=== PATIENT | female | born 1955 | race Caucasian/White ===

== ENCOUNTER 2016-12-08 21:56 | Emergency (ER) | payer MEDICARE, OTHER, MEDICAID ==
--- NOTE | 2016-12-08 23:08 | ER Document Report ---
ED Extremity Problem, Lower - General Chief Complaint: Foot Pain Stated Complaint: FOOT PAIN Notes: Patient is a 61-year-old female that comes emergency department by EMS from [facility] for chief complaint of concerns about the circulation in the right foot. Patient has known history of peripheral vascular disease, she states that they were unable to find a pulse in her foot and became concerned and sent her for evaluation. Patient denies any new pains or injuries to the foot, denies any other symptoms. TRAVEL OUTSIDE OF THE [place] IN LAST 30 DAYS: No - Related Data Allergies/Adverse Reactions: No Known Allergies Allergy (Unverified 02/06/15 14:33) Past Medical History - General Information source: Patient - Social History Smoking Status: Never Smoker Frequency of alcohol use: None Drug Abuse: None Lives with: Family Family History: Reviewed & Not Pertinent - Past Medical History Cardiac Medical History: Reports: Hx Hypercholesterolemia, Hx Hypertension, Hx Peripheral Vascular Disease Neurological Medical History: Reports: Hx Cerebrovascular Accident Psychiatric Medical History: Reports: Hx Depression Past Surgical History: Reports: Hx Hysterectomy, Hx Orthopedic Surgery - Left second toe metatarsal amputation for ischemic gangrenous toe., Hx Vascular Surgery - Left femoropopliteal bypass with tibial angioplasty - Immunizations Immunizations up to date: Yes Hx Diphtheria, Pertussis, Tetanus Vaccination: Yes - unknown Review of Systems - Review of Systems Constitutional: No symptoms reported EENT: No symptoms reported Cardiovascular: No symptoms reported Respiratory: No symptoms reported Gastrointestinal: No symptoms reported Genitourinary: No symptoms reported Female Genitourinary: No symptoms reported Musculoskeletal: See HPI Skin: See HPI Hematologic/Lymphatic: No symptoms reported Neurological/Psychological: No symptoms reported Physical Exam - Vital signs Vitals: Temp Pulse Resp BP Pulse Ox 97.7 F 69 15 108/78 97 12/09/16 02:05 12/09/16 02:05 12/09/16 02:05 12/09/16 02:05 12/09/16 02:05 Interpretation: Normal - General General appearance: Appears well, Alert In distress: None - HEENT Head: Normocephalic, Atraumatic Eyes: Normal Conjunctiva: Normal Extraocular movements intact: Yes Eyelashes: Normal Pupils: PERRL Mucous membranes: Normal Pharynx: Normal Neck: Normal - Respiratory Respiratory status: No respiratory distress Chest status: Nontender Breath sounds: Normal Chest palpation: Normal - Cardiovascular Rhythm: Regular. No: Tachycardia Heart sounds: Normal auscultation, S1 appreciated, S2 appreciated Murmur: No - Abdominal Inspection: Normal Distension: No distension Bowel sounds: Normal Tenderness: Nontender. No: Tender, Guarding Organomegaly: No organomegaly - Back Back: Normal, Nontender - Extremities General upper extremity: Normal inspection, Nontender, Normal color, Normal ROM , Normal temperature General lower extremity: Other - Left lower extremity BKA, right lower extremity with a decubitus ulcer at the base of the fifth digit laterally with no significant erythema, tenderness, or discharge noted. Good capillary refill and sensation, there is a pulse felt over the dorsalis pedis, the foot is not significantly cold to the touch and has a pink coloration. - Neurological Neuro grossly intact: Yes Cognition: Normal Orientation: AAOx4 [place] Coma Scale Eye Opening: Spontaneous Karena Coma Scale Verbal: Oriented [place] Coma Scale Motor: Obeys Commands [place] Coma Scale Total: 15 Speech: Normal Cranial nerves: Normal Cerebellar coordination: Normal Motor strength normal: LUE, RUE, LLE, RLE Additional motor exam normals: Equal dopeman Sensory: Normal - Psychological Associated symptoms: Normal affect, Normal mood - Skin Skin Temperature: Warm Skin Moisture: Dry Skin Color: Normal Course - Re-evaluation Re-evalutation: Good dorsalis pedis, good capillary refill, good coloration to the foot, foot is warm and not cold, foot is nontender, ankle and leg exam are unremarkable. Only abnormality is a decubitus ulcer which is not new, appropriately dressed already, there is no significant tenderness or erythema suggesting cellulitis, patient examination shows no acute abnormalities. - Vital Signs Vital signs: Temp Pulse Resp BP Pulse Ox 97.7 F 69 15 108/78 97 12/09/16 02:05 12/09/16 02:05 12/09/16 02:05 12/09/16 02:05 12/09/16 02:05 Discharge - Discharge Clinical Impression: Peripheral vascular disease Condition: Stable Disposition: HOME, SELF-CARE Additional Instructions: Good capillary refill and dorsalis pedis pulses are noted on examination. Continue dressings on decubitus ulcer. Follow-up with your primary care. Return to the emergency department for any concerning or worsening symptoms including evidence of infection to the ulcer or other concerns including bluish discoloration or coldness to your foot. Referrals: BRIAN TINAJERO MD [Primary Care Provider] - Follow up as needed
[2016-12-09 02:55] VITALS: BP 108/78
== END 2016-12-09 02:10 | disposition home or self-care (01) ==
LOC: ER 21:56
DX: I73.9 Peripheral vascular disease, unspecified (principal); M79.671 Pain in right foot; L89.899 Pressure ulcer of other site, unspecified stage; E78.00 Pure hypercholesterolemia, unspecified; I10 Essential (primary) hypertension; Z89.512 Acquired absence of left leg below knee; Z90.710 Acquired absence of both cervix and uterus; Z86.73 Personal history of transient ischemic attack (TIA), and cerebral infarction without residual deficits
CPT/HCPCS: 99285

== ENCOUNTER 2020-01-21 05:47 | Inpatient (IN) | payer MEDICARE, MEDICAID ==
[2020-01-21] MEDS ORDERED: ACETAMINOPHEN 325 MG TABLET PO ONE (05:56)
[2020-01-21] MEDS ORDERED: PIPERACILLIN/TAZOBACTAM 4.5 GM VIAL IV ONE (05:56)
--- NOTE | 2020-01-21 06:00 | ER Document Report ---
ED Medical Screen (RME) - General Stated Complaint: LOW BLOOD PRESSURE/FEVER Primary Care Provider: ALLIE PEARSON MD [Primary Care Provider] - Follow up as needed Notes: 65-year-old female presents the emergency department via EMS from [facility]. Patient there was found to be feeling generally weak and having chills. [facility] and [facility] found that she was hypotensive, tachycardic and febrile. Patient was diagnosed with a tongue abscess yesterday and started on Augmentin by the [facility]. Patient denies any pain in her tongue, states that she has some pain in her teeth, states she thinks she has a cavity. TRAVEL OUTSIDE OF THE [place] IN LAST 30 DAYS: No - Related Data Allergies/Adverse Reactions: No Known Allergies Allergy (Unverified 02/06/15 14:33) Past Medical History - Past Medical History Cardiac Medical History: Reports: Hx Hypercholesterolemia, Hx Hypertension, Hx Peripheral Vascular Disease Neurological Medical History: Reports: Hx Cerebrovascular Accident Psychiatric Medical History: Reports: Hx Depression Past Surgical History: Reports: Hx Hysterectomy, Hx Orthopedic Surgery - Left second toe metatarsal amputation for ischemic gangrenous toe., Hx Vascular Surgery - Left femoropopliteal bypass with tibial angioplasty - Immunizations Immunizations up to date: Yes Hx Diphtheria, Pertussis, Tetanus Vaccination: Yes - unknown Physical Exam - Notes Notes: GENERAL: Alert, interacts well. No acute distress but marked hypotension. HEAD: Normocephalic, atraumatic EYES: Pupils equal, round and reactive to light, extraocular movements intact. ENT: Oral mucosa moist, tongue deviates slightly to the right, postsurgical changes consistent with her tongue cancer noted, no tenderness to palpation, no abscess noted on my examination. NECK: Full range of motion, supple, trachea midline. HEART: Tachycardic and irregularly irregular without any murmurs, gallops or rubs ABDOMEN: Soft, nontender, nondistended, bowel sounds present in all 4 quadrants. EXTREMITIES: Moves all 4 extremities spontaneously, though there is an [id number] amputation on the left. No cyanosis. NEUROLOGICAL: Alert and oriented x3, normal speech. Course - Re-evaluation Re-evalutation: 01/21/20 05:59 Sepsis protocol has been initiated, patient will receive aggressive fluid rehydration, blood pressure has already improved to 96/72. We will watch for decrease in heart rate his blood pressure improves, if heart rate does not come down his blood pressure improves then patient will be given some Cardizem however currently heart rate is ranging between 113 and 124, on arrival it was in the 150s so this is an improvement. Patient will be taken over by the 6 AM doc. Doctor's Discharge - Discharge Referrals: ALLIE PEARSON MD [Primary Care Provider] - Follow up as needed
[2020-01-21] MEDS: RINGERS SOLUTION,LACTATED 1,000 ML IV PRN ×2 (06:12→06:30)
[2020-01-21 06:19] LABS: VENOUS BLOOD BASE EXCESS -9.7 mmol/L; VENOUS BLOOD HCO3 15.3 mmol/L (20-32); VENOUS BLOOD PH 7.31 (7.30-7.42)
[2020-01-21 06:29] LABS: HEMATOCRIT 30.3 % (36.0-47.0); HEMOGLOBIN 10.5 g/dL (12.0-15.5); MEAN CORPUSCULAR HEMOGLOBIN 32.5 pg (27.0-33.4); MEAN CORPUSCULAR HGB CONC 34.5 g/dL (32.0-36.0); MEAN CORPUSCULAR VOLUME 94 fl (80-97); PLATELET COUNT 137 10^3/uL (150-450); RED BLOOD COUNT 3.22 10^6/uL (3.72-5.28); RED CELL DISTRIBUTION WIDTH 13.8 % (11.5-14.0); WHITE BLOOD COUNT 9.6 10^3/uL (4.0-10.5)
[2020-01-21 06:41] LABS: INTERNATIONAL RATION (INR) 1.69; PROTHROMBIN TIME 20.1 SEC (11.4-15.4)
[2020-01-21] MEDS ORDERED: DEXTROSE 5%-WATER 250 ML with NOREPINEPHRINE BITARTRATE 4 MG IV PRN ×2 (06:55)
[2020-01-21 06:56] LABS: ABSOLUTE MONOCYTES # (MANUAL) 0.4 10^3/uL (0.1-1.4); BAND NEUTROPHILS % (MANUAL) 1 % (3-5); BASOPHILS % (MANUAL) 0 % (0-2); EOSINOPHILS % (MANUAL) 0 % (0-6); LYMPHOCYTES % (MANUAL) 0 % (13-45); MONOCYTES % (MANUAL) 4 % (3-13); SEGMENTED NEUTROPHILS % (MAN) 95 % (42-78); TOTAL CELLS COUNTED 100
[2020-01-21 06:58] LABS: APPEARANCE,URINE CLOUDY; BILIRUBIN,URINE NEGATIVE (NEGATIVE); COLOR,URINE AMBER; GLUCOSE, URINE NEGATIVE (NEGATIVE); KETONES,URINE TRACE mg/dL (NEGATIVE); PROTEIN,URINE 30 mg/dL (NEGATIVE); URINE SPECIFIC GRAVITY 1.014
[2020-01-21 06:59] LABS: BURR CELLS SLIGHT; PLATELET COMMENT DECREASED
[2020-01-21 07:00] LABS: ANISOCYTOSIS SLIGHT
--- NOTE | 2020-01-21 07:26 | ER Document Report ---
ED Fever - General Chief Complaint: Fever Stated Complaint: LOW BLOOD PRESSURE/FEVER Primary Care Provider: ALLIE PEARSON MD [Primary Care Provider] - Follow up as needed Mode of Arrival: Medic Information source: Patient TRAVEL OUTSIDE OF THE [place] IN LAST 30 DAYS: No - HPI Notes: Patient presents with fever from extended[facility]care facility. Patient is not a good historian so history is somewhat suspect. She complains of feeling weak. She denies any pain. She states she has not been coughing. It is unknown to what degree she had fever [facility] the [facility]. There is no known exposures to coronavirus no known fevers. No known vomiting or diarrhea. No known trauma. The weakness is apparently been constant. Nothing makes it better or worse that is known. It apparently radiates throughout her body. It is moderate to severe. - Related Data Allergies/Adverse Reactions: No Known Allergies Allergy (Unverified 02/06/15 14:33) Home Medications: SEE CHART Past Medical History - General Information source: Patient - Social History Smoking Status: Never Smoker Frequency of alcohol use: None Drug Abuse: None Family History: Reviewed & Not Pertinent Patient has suicidal ideation: No Patient has homicidal ideation: No - Past Medical History Cardiac Medical History: Reports: Hx Hypercholesterolemia, Hx Hypertension, Hx Peripheral Vascular Disease Neurological Medical History: Reports: Hx Cerebrovascular Accident Psychiatric Medical History: Reports: Hx Depression Past Surgical History: Reports: Hx Hysterectomy, Hx Orthopedic Surgery - Left second toe metatarsal amputation for ischemic gangrenous toe., Hx Vascular Surgery - Left femoropopliteal bypass with tibial angioplasty - Immunizations Immunizations up to date: Yes Hx Diphtheria, Pertussis, Tetanus Vaccination: Yes - unknown Review of Systems - Review of Systems Constitutional: Chills, Fever, Weakness Cardiovascular: denies: Chest pain, Palpitations Respiratory: denies: Cough, Short of breath -: Yes All other systems reviewed and negative Physical Exam - Vital signs Vitals: Resp 15 01/21/20 05:47 Interpretation: Hypotensive, Tachycardic - General General appearance: Alert - HEENT Head: Normocephalic, Atraumatic Eyes: Normal Pupils: PERRL - Respiratory Respiratory status: No respiratory distress Chest status: Nontender Breath sounds: Normal Chest palpation: Normal - Cardiovascular Rhythm: Irregularly irregular, Tachycardia Heart sounds: Normal auscultation Murmur: No - Abdominal Inspection: Normal Distension: No distension Bowel sounds: Normal Tenderness: Nontender Organomegaly: No organomegaly - Back Back: Normal, Nontender - Extremities General upper extremity: Normal inspection, Nontender, Normal color, Normal ROM, Normal temperature General lower extremity: Nontender, Normal color, Normal temperature, Other - Has a left above-knee amputation. No: Jb's sign - Neurological Cognition: Confused Orientation: AAOx4 Karena Coma Scale Eye Opening: Spontaneous [place] Coma Scale Verbal: Confused [place] Coma Scale Motor: Obeys Commands Karena Coma Scale Total: 14 Speech: Normal - Psychological Associated symptoms: Normal affect, Normal mood - Skin Skin Temperature: Warm Skin Moisture: Dry Skin Color: Normal Course - Re-evaluation Re-evalutation: 01/21/20 07:24 Patient [facility] from [facility] with a history of fever. She has not been febrile here. She has had A. fib with RVR. The rapid ventricular response has slowed after fluids however the pressure remains approximately 66 systolic. Patient will awaken easily but is somnolent. She does have an infected urine. A coronavirus test is also pending. She has been treated with antibiotics and Levophed has been started. System Architect has been notified and will see the patient in consultation. - Vital Signs Vital signs: Temp Pulse Resp BP Pulse Ox 98.0 F 114 H 17 93/57 L 100 01/21/20 07:15 01/21/20 06:06 01/21/20 07:15 01/21/20 07:15 01/21/20 07:15 - Laboratory Result Diagrams: 01/21/20 05:50 01/21/20 05:50 Laboratory results interpreted by me: 01/21/20 01/21/20 01/21/20 05:50 05:50 05:55 RBC 3.22 L Hgb 10.5 L Hct 30.3 L Plt Count 137 L Seg Neuts % (Manual) 95 H Band Neutrophils % 1 L Lymphocytes % (Manual) 0 L Abs Neuts (Manual) 9.2 H Abs Lymphs (Manual) 0.0 L PT 20.1 H VBG pCO2 31.0 L VBG HCO3 15.3 L POC Glucose Urine Protein Urine Ketones Urine Blood Urine Urobilinogen Leukocyte Esterase Rfl 01/21/20 01/21/20 06:07 06:19 RBC Hgb Hct Plt Count Seg Neuts % (Manual) Band Neutrophils % Lymphocytes % (Manual) Abs Neuts (Manual) Abs Lymphs (Manual) PT VBG pCO2 VBG HCO3 POC Glucose 67 L Urine Protein 30 H Urine Ketones TRACE H Urine Blood MODERATE H Urine Urobilinogen 2.0 H Leukocyte Esterase Rfl LARGE H - Diagnostic Test Radiology reviewed: Image reviewed, Reports reviewed - EKG Interpretation by Me Rate: Tachycardia - 151 Rhythm: A.Fib [place]/QRS: No: Right axis deviation, Left axis deviation Critical Care Note - Critical Care Note Total time excluding time spent on procedures (mins): 50 Comments: Approximately 50 minutes of critical care time were spent on this hypotensive septic patient. This time included multiple reassessments. Included discussion with consultants. Included review of labs and imaging. Discharge - Discharge Clinical Impression: Urinary tract infection Qualifiers: Urinary tract infection type: acute cystitis Hematuria presence: without hematuria Qualified Code(s): N30.00 - Acute cystitis without hematuria Sepsis Qualifiers: Sepsis type: sepsis due to unspecified organism Sepsis acute organ dysfunction status: with acute organ dysfunction Severe sepsis acute organ dysfunction type: encephalopathy Severe sepsis shock status: with septic shock Qualified Code(s): A41.9 - Sepsis, unspecified organism; R65.21 - Severe sepsis with septic shock; G93.40 - Encephalopathy, unspecified Condition: Critical Disposition: ADMITTED INPATIENT Admitting Provider: Teagan (System Architect) Unit Admitted: ICU Referrals: ALLIE PEARSON MD [Primary Care Provider] - Follow up as needed
[2020-01-21 07:49] LABS: ALBUMIN 2.6 g/dL (3.5-5.0); ALKALINE PHOSPHATASE 113 U/L (38-126); ANION GAP 9 (5-19); ASPARTATE AMINO TRANSFERASE 59 U/L (14-36); BILIRUBIN,DIRECT 0.2 mg/dL (0.0-0.4); BILIRUBIN,TOTAL 0.6 mg/dL (0.2-1.3); BLOOD UREA NITROGEN 15 mg/dL (7-20); CALCIUM 7.9 mg/dL (8.4-10.2); CARBON DIOXIDE 18 mmol/L (22-30); CHLORIDE 99 mmol/L (98-107); POTASSIUM 4.5 mmol/L (3.6-5.0); TOTAL PROTEIN 5.3 g/dL (6.3-8.2)
[2020-01-21 07:56] LABS: GLUCOSE 68 mg/dL (75-110)
[2020-01-21] MEDS ORDERED: NOREPINEPHRINE BITARTRATE INJ/PF 4 MG/4 ML SDV IV ONE (08:03)
--- NOTE | 2020-01-21 08:05 | RADIOLOGY REPORT (SQ) ---
EXAM DESCRIPTION: CHEST SINGLE VIEW IMAGES COMPLETED DATE/TIME: 01/21/2020 7:40 am REASON FOR STUDY: fever, hypotension, tachycardia COMPARISON: 08/31/2016 EXAM PARAMETERS: NUMBER OF VIEWS: One view. TECHNIQUE: Single frontal radiographic view of the chest acquired. RADIATION DOSE: NA LIMITATIONS: None. FINDINGS: LUNGS AND PLEURA: No opacities, masses or pneumothorax. No pleural effusion. MEDIASTINUM AND HILAR STRUCTURES: No masses. Contour normal. HEART AND VASCULAR STRUCTURES: Heart size is stable. No failure. BONES: No acute findings. HARDWARE: Battery pack and leads are now in place. OTHER: No other significant finding. IMPRESSION: NO ACUTE RADIOGRAPHIC FINDING IN THE CHEST. TECHNICAL DOCUMENTATION: JOB ID: [id number] 2010 [employer]- All Rights Reserved Reading location - IP/workstation name: [email or web address]
--- NOTE | 2020-01-21 08:15 | EKG REPORT ---
SEVERITY:- ABNORMAL ECG - ATRIAL FIBRILLATION NONSPECIFIC T ABNORMALITIES, ANTERIOR LEADS : Confirmed by: Marni Najera MD 21-Jan-2020 08:15:16
[2020-01-21 08:44] LABS: A TYPE INFLUENZA AG NEGATIVE (NEGATIVE); B INFLUENZA AG NEGATIVE (NEGATIVE)
[2020-01-21] MEDS ORDERED: GLUCAGON,HUMAN RECOMB 1 MG INJ SUBCUT PRN (08:51)
[2020-01-21] MEDS ORDERED: ACETAMINOPHEN 325 MG TABLET PO PRN (08:51)
[2020-01-21] MEDS ORDERED: DEXTROSE 40% GEL 15 GM TUBE PO PRN ×2 (08:51)
[2020-01-21] MEDS ORDERED: DEXTROSE 50%-WATER 25 GM/50 ML DISP.SYRIN IV PRN ×2 (08:51)
[2020-01-21] MEDS ORDERED: RINGERS SOLUTION,LACTATED 1,000 ML IV PRN (08:51)
[2020-01-21 09:17] LABS: PHOSPHORUS 3.6 mg/dL (2.5-4.5)
[2020-01-21] MEDS ORDERED: ENOXAPARIN SODIUM INJ 40 MG/0.4 ML DISP.SYRIN SUBCUT SCH (10:00)
[2020-01-21 10:36] LABS: ARTERIAL BLOOD BASE EXCESS -10.5 mmol/L; ARTERIAL BLOOD FIO2 ROOM AIR; ARTERIAL BLOOD HCO3 15.8 mmol/L (20-24); ARTERIAL BLOOD PCO2 36.7 mmHg (35-45); ARTERIAL BLOOD PH 7.25 (7.35-7.45); ARTERIAL BLOOD PO2 124.2 mmHg (80-100)
[2020-01-21 10:41] LABS: CREATINE KINASE MB 2.01 ng/mL (<4.55); TROPONIN I 0.013 ng/mL
[2020-01-21] MEDS: DEXTROSE 5%-WATER 250 ML with NOREPINEPHRINE BITARTRATE 4 MG IV PRN ×4 (10:45→16:25)
[2020-01-21] MEDS: CEFTRIAXONE 1 GM/D5W RTU 1 GM/50 ML RTUPB IV SCH (11:18)
[2020-01-21] MEDS: ESMOLOL HCL/SOD CL 2,500 MG/250 ML RTUINJ IV PRN ×2 (11:55→20:19)
--- NOTE | 2020-01-21 13:29 | CRITICAL CARE ADMISSION REPORT ---
HPI Date:: 01/21/20 Time:: 08:00 Reason for ICU Reason:: Sepsis, UTI, COVID r/o HPI: 65-year-old white female who is domiciled in a nursing facility presented with fever from [facility]. Patient has lived there for sometime (2013)secondary to inability to care for herself with blindness and amputee. Nursing reported fever of 101 despite acetaminophen. Went to 102. Patient is lethargic and difficult to obtain history but there is endorsement of dry cough and significant body aches. Poor historian. She feels weak and malaised when prompted. Has compulsive skin picking disorder. Had defibrillator placed 2 weeks ago. Nurses reported some slight bleeding. [facility] Patient is not a good historian so history is somewhat suspect. Nurses note no positive cases of influenza nor COVID History obtained from:: Nursing facility, ED, old records - Diagnosis/Plan (1) Sepsis Qualifiers: Sepsis type: sepsis due to unspecified organism Sepsis acute organ dysfunction status: without acute organ dysfunction Qualified Code(s): A41.9 - Sepsis, unspecified organism Is this a current diagnosis for this admission?: Yes (2) Septic shock Is this a current diagnosis for this admission?: Yes (3) Suspected COVID-19 virus infection Is this a current diagnosis for this admission?: Yes (4) Acute metabolic encephalopathy Is this a current diagnosis for this admission?: Yes (5) Urinary tract infection Qualifiers: Urinary tract infection type: acute cystitis Is this a current diagnosis for this admission?: Yes - . Plan Summary: From a respiratory standpoint we will attempt to rule out influenza although screening is extremely insensitive. We will also rule out CO VID 19 Low threshold for intubation should her symptoms worsen. Perform bedside ultrasound to evaluate extent of lung disease chest x-ray shows minimal interstitial changes. The most noted at the bases which is common for Covid. Of note her neutrophil lymphocyte ratio which helps with prognosis and disposition is 9. Should be noted that a ratio greater than 3.13 is indicative of worsened prognosis. From an infectious disease standpoint have placed the patient on Rocephin and will monitor cultures of urine and blood. If her hypotension does not resolve will place her on broad-spectrum antibiotics as well as 1 dose of concentrated gentamicin. Procalcitonin has been ordered however it may not return in a timely fashion. We will follow other clinical parameters as well. As noted above her NLR significantly elevated. He also has bandemia and no lymphocytes. Highly suggestive of Covid. From a cardiac standpoint we will perform critical care ultrasound and evaluate ejection fraction while we do lung ultrasound as well. She is on levo fed and has been on an TIA inhibitor. Vasopressin may be needed to offset the TIA inhibitor effect of vasopressin receptors. She has an implantable defibrillator in which may suggest a low ejection fraction we will try to obtain information. From endocrine standpoint we will check a cortisol level and start her on Solu- Cortef if levels are low. Check TSH and follow glucose. From renal standpoint she does have hyponatremia and will check for the possibility of SIADH which may be related to some of her medications. 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 Pulmonary Medical History: Reports: None EENT Medical History: Reports: Cataracts, Eyes - Blindness since 2012 Neurological Medical History: Reports: Ischemic CVA, Seizures, Other - Cognitive dysfunctiion Endocrine Medical History: Reports: None Renal/ Medical History: Reports: None Malignancy Medical History: Reports: Other - Questionable tongue cancer Musculoskeltal Medical History: Reports: Other - Muscle spasm Psychiatric Medical History: Reports: Depression Traumatic Medical History: Reports: None Hematology: Reports: Anemia Past Surgical History Past Surgical History: Reports: Hysterectomy, Orthopedic Surgery - Left second toe metatarsal amputation for ischemic gangrenous toe. Left BKA, Pacemaker, Vascular Surgery - Left femoropopliteal bypass with tibial angioplasty, Other - AICD December 2019 Social/Family History - Social History Lives with: Long Term Smoking Status: Former Smoker Number of Years Smokin Last Time Smoked: 2014 Frequency of Alcohol Use: Rare Hx Recreational Drug Use: No Hx Prescription Drug Abuse: No - Medication/Allergies Home Medications: Atorvastatin Calcium 80 mg PO QHS 10/25/14 Baclofen [Baclofen 10 mg Tablet] 10 mg PO TID 10/25/14 Carbamazepine 200 mg PO BID 10/25/14 Clopidogrel Bisulfate [Plavix 75 mg Tablet] 75 mg PO DAILY 10/25/14 Gabapentin [Neurontin 300 mg Capsule] 600 mg PO TID 10/25/14 Lisinopril 2.5 mg PO DAILY 10/25/14 Polyethylene Glycol 3350 [Miralax Powder 17 gm/Packet] 17 gm PO DAILY 10/25/14 Ferrous Sulfate [Feosol] 325 mg PO TID #90 tablet 02/06/15 Clindamycin HCl [Cleocin 300 mg Capsule] 300 mg PO Q8 #21 capsule 02/22/15 Duloxetine HCl [Cymbalta] 60 mg PO DAILY #0 capsule.dr 02/22/15 Oxycodone HCl 10 mg PO Q4H PRN 02/22/15 Potassium Chloride [K-Tab ER] 20 meq PO DAILY 02/22/15 Pyridoxine HCl [Vitamin B-6] 50 mg PO DAILY 02/22/15 Sodium Chloride [Saline Nasal [place]] 44 ml NS Q4H PRN 02/22/15 Clindamycin HCl 300 mg PO Q6H #40 capsule 05/09/16 Hydrocodone/Acetaminophen [[place] 5-325 Tablet] 1 each PO Q6 #15 tablet 05/09/16 Allergies/Adverse Reactions: No Known Allergies Allergy (Unverified 02/06/15 14:33) Review of Systems ROS unobtainable: Due to mental status All systems: reviewed and no additional remarkable complaints except as stated Constitutional: PRESENT: as per HPI, fever(s) Nose, Mouth, and Throat: PRESENT: mouth pain Respiratory: PRESENT: cough Genitourinary: ABSENT: difficulty urinating, dysuria, hematuria Musculoskeletal: PRESENT: muscle weakness, other - Muscle pain-diffuse Physical Exam Vital Signs: Temp Pulse Resp BP Pulse Ox 96.8 F L 114 H 20 126/69 H 100 01/21/20 10:16 01/21/20 06:06 01/21/20 10:16 01/21/20 10:16 01/21/20 10:05 Intake & Output 01/20/20 01/21/20 01/22/20 06:59 06:59 06:59 Intake Total 1000 1000 Balance 1000 1000 Weight 53.07 kg Weight/Height Weight 53.07 kg Height 5 ft 4 in General appearance: PRESENT: no acute distress, hard of hearing, obese Exam: Chronically and critically ill-appearing 65-year-old female in no active distress she is lethargic difficult to arouse hard of hearing. Head exam: PRESENT: atraumatic, normocephalic Eye exam: PRESENT: conjunctiva pink, other - Patient is blind. ABSENT: conjunctival injection, nystagmus Ear exam: PRESENT: normal external ear exam Mouth exam: PRESENT: dry mucosa, neck supple Teeth exam: PRESENT: edentulous Neck exam: ABSENT: JVD, lymphadenopathy, thyromegaly, tracheal deviation Respiratory exam: PRESENT: unlabored, other - Sounds not auscultated secondary to the confines of PPE and SARS-Covid restrictions. ABSENT: accessory muscle use, tachypnea Cardiovascular exam: PRESENT: irregular rhythm, tachycardia, other - Heart not auscultated secondary to SARS, 2-CoViD19 striction's Vascular exam: PRESENT: normal capillary refill. ABSENT: pallor GI/Abdominal exam: PRESENT: soft. ABSENT: ascites, distended, firm, guarding, mass, rebound, rigid, tenderness Rectal exam: PRESENT: deferred Gentrourinary exam: PRESENT: indwelling catheter Extremities exam: PRESENT: other - Left BKA. ABSENT: pedal edema, tenderness Musculoskeletal exam: PRESENT: deformity - Left BKA Neurological exam: PRESENT: altered, oriented to person, CN II-XII grossly intact, other - Extremely lethargic. [place] Coma Scale is 35-6=14. ABSENT: motor sensory deficit Psychiatric exam: PRESENT: flat affect Focused psych exam: ABSENT: psychomotor agitation, restlessness Skin exam: PRESENT: dry, intact, normal color, warm. ABSENT: abrasion, cyanosis, mottled, rash Tubes/Lines: PRESENT: Other - Gale catheter Laboratory/Radiographs Laboratory Results: 01/21/20 05:50 01/21/20 07:13 01/21/20 01/21/20 01/21/20 05:50 05:50 05:55 WBC 9.6 RBC 3.22 L Hgb 10.5 L Hct 30.3 L MCV 94 MCH 32.5 MCHC 34.5 RDW 13.8 Plt Count 137 L Seg Neutrophils % Not Reportable Carbonic Acid HCO3/H2CO3 Ratio ABG pH ABG pCO2 ABG pO2 ABG HCO3 ABG O2 Saturation ABG Base Excess VBG pH 7.31 VBG pCO2 31.0 L VBG HCO3 15.3 L VBG Base Excess -9.7 FiO2 Sodium Cancelled Potassium Cancelled Chloride Cancelled Carbon Dioxide Cancelled Anion Gap Cancelled BUN Cancelled Creatinine Cancelled Est GFR ( Amer) Cancelled Est GFR (Non-Af Amer) Cancelled Glucose Cancelled Lactic Acid Calcium Cancelled Phosphorus Magnesium Total Bilirubin Cancelled AST Cancelled Alkaline Phosphatase Cancelled Ammonia Total Protein Cancelled Albumin Cancelled TSH Urine Color Urine Appearance Urine pH Ur Specific Bee Urine Protein Urine Glucose (UA) Urine Ketones Urine Blood Urine RBC (Auto) 01/21/20 01/21/20 01/21/20 05:55 06:19 07:13 WBC RBC Hgb Hct MCV MCH MCHC RDW Plt Count Seg Neutrophils % Carbonic Acid HCO3/H2CO3 Ratio ABG pH ABG pCO2 ABG pO2 ABG HCO3 ABG O2 Saturation ABG Base Excess VBG pH VBG pCO2 VBG HCO3 VBG Base Excess FiO2 Sodium 125.8 L Potassium 4.5 Chloride 99 Carbon Dioxide 18 L Anion Gap 9 BUN 15 Creatinine 0.73 Est GFR ( Amer) > 60 Est GFR (Non-Af Amer) Glucose 68 L Lactic Acid 0.7 Calcium 7.9 L Phosphorus Magnesium Total Bilirubin 0.6 AST 59 H Alkaline Phosphatase 113 Ammonia Total Protein 5.3 L Albumin 2.6 L TSH Urine Color MURPHY Urine Appearance CLOUDY Urine pH 6.0 Ur Specific Bee 1.014 Urine Protein 30 H Urine Glucose (UA) NEGATIVE Urine Ketones TRACE H Urine Blood MODERATE H Urine RBC (Auto) 01/21/20 01/21/20 01/21/20 07:13 07:13 09:46 WBC RBC Hgb Hct MCV MCH MCHC RDW Plt Count Seg Neutrophils % Carbonic Acid HCO3/H2CO3 Ratio ABG pH ABG pCO2 ABG pO2 ABG HCO3 ABG O2 Saturation ABG Base Excess VBG pH VBG pCO2 VBG HCO3 VBG Base Excess FiO2 Sodium Potassium Chloride Carbon Dioxide Anion Gap BUN Creatinine Est GFR ( Amer) Est GFR (Non-Af Amer) Glucose Lactic Acid Calcium Phosphorus 3.6 Magnesium 1.5 L Total Bilirubin AST Alkaline Phosphatase Ammonia < 8.7 L Total Protein Albumin TSH 0.83 Urine Color Urine Appearance Urine pH Ur Specific Bee Urine Protein Urine Glucose (UA) Urine Ketones Urine Blood Urine RBC (Auto) 01/21/20 09:46 WBC RBC Hgb Hct MCV MCH MCHC RDW Plt Count Seg Neutrophils % Carbonic Acid 1.10 HCO3/H2CO3 Ratio 14:1 ABG pH 7.25 L ABG pCO2 36.7 ABG pO2 124.2 H ABG HCO3 15.8 L ABG O2 Saturation 98.0 ABG Base Excess -10.5 VBG pH VBG pCO2 VBG HCO3 VBG Base Excess FiO2 ROOM AIR Sodium Potassium Chloride Carbon Dioxide Anion Gap BUN Creatinine Est GFR ( Amer) Est GFR (Non-Af Amer) Glucose Lactic Acid Calcium Phosphorus Magnesium Total Bilirubin AST Alkaline Phosphatase Ammonia Total Protein Albumin TSH Urine Color Urine Appearance Urine pH Ur Specific Bee Urine Protein Urine Glucose (UA) Urine Ketones Urine Blood Urine RBC (Auto) 01/21/20 01/21/20 01/21/20 05:50 07:13 09:46 CK-MB (CK-2) 2.01 Troponin I Cancelled 0.024 0.013 Impressions: Chest X-Ray 01/21/20 05:56 IMPRESSION: NO ACUTE RADIOGRAPHIC FINDING IN THE CHEST. All labs, radiographs, diagnostic studies and EKGs were personally reviewed: Yes In addition, reports of radiographic and diagnostic studies were read: Yes Critical Time Critical Time (minutes): 80 -: The care of a critically ill patient is dynamic. This note represents a static moment in the admission process. Orders and treatments may be given simultaneously and urgently, and time is not entry level marketing representative of the treatment process. This patient requires Critical Care secondary to life threatening organ or limb dysfunction. Without Critical Care services, the patient is at risk for increased mortality and morbidity.
[2020-01-21 14:06] LABS: URINE CREATININE 67.6 mg/dL (15-278)
[2020-01-21] MEDS ORDERED: ALBUMIN HUMAN 250 ML IV ONE (17:00)
--- NOTE | 2020-01-21 20:52 | Operative Report ---
Bedside Procedure - History of Present Illness History of Present Illness: 65-year-old white female who is domiciled in a nursing facility presented with fever from [facility]. Patient has lived there for sometime (2013)secondary to inability to care for herself with blindness and amputee. Nursing reported fever of 101 despite acetaminophen. Went to 102. Patient is lethargic and difficult to obtain history but there is endorsement of dry cough and significant body aches. Poor historian. She feels weak and malaised when prompted. Has compulsive skin picking disorder. Had defibrillator placed 2 weeks ago. Nurses reported some slight bleeding. Patient presents with fever from [facility]. Patient is not a good historian so history is somewhat suspect. Nurses note no positive cases of influenza nor COVID Indication for Procedure: Potential and with poor access need for vasopressor therapy Date: 01/21/20 Provider: JEANINE BATISTA - Central Line Right Femoral Consent obtained: Yes Central line pre-insertion: Sterile PPE donned, Chloraprep applied, Sterile drapes applied Central line lumen type: Triple Anesthetic type: 1% Lidocaine mL's of anesthesia: 5 Ultrasound guided: Yes CM at insertion site: 20 Line secured with sutures: Yes Central line post-insertion: Blood return from lumens, Biopatch applied, Sutured, Sterile dressing applied, Other - Patient confirmed by ultrasound Number of attempts: 3 Complications: No Notes: 01/21/20 20:51 Attempt at femoral arterial catheter was aborted secondary to significant calcification of the artery. 01/21/20 20:51 Estimated blood loss 5 to 10 cc
[2020-01-21] MEDS: MELATONIN 5 MG TABLET PO SCH (21:40)
[2020-01-21] MEDS: ATORVASTATIN CALCIUM 40 MG TABLET PO SCH (21:40)
[2020-01-21] MEDS: CARBAMAZEPINE 200 MG TABLET PO SCH (21:40)
[2020-01-21] MEDS: MIRTAZAPINE 15 MG TABLET PO SCH (21:40)
[2020-01-21] MEDS: PYRIDOXINE HCL 50 MG TABLET PO SCH (21:43)
[2020-01-21] MEDS ORDERED: NORMAL SALINE INJ/PF 0.9% 10 ML SDV IV PRN (21:47)
[2020-01-21] MEDS ORDERED: ATORVASTATIN CALCIUM 80 MG TABLET PO SCH ×2 (22:00)
[2020-01-21] MEDS ORDERED: FLUVOXAMINE 50 MG PO SCH (22:00)
[2020-01-21] MEDS: ACETAMINOPHEN 325 MG TABLET PO PRN (23:48)
[2020-01-22] MEDS: ESMOLOL HCL/SOD CL 2,500 MG/250 ML RTUINJ IV PRN (00:05)
[2020-01-22] MEDS: RINGERS SOLUTION,LACTATED 1,000 ML IV PRN ×3 (00:30→14:34)
[2020-01-22] MEDS ORDERED: PHENYLEPHRINE HCL INJ/PF 10 MG/1 ML SDV ONE (00:40)
[2020-01-22] MEDS ORDERED: DEXTROSE 5%-WATER 250 ML with PHENYLEPHRINE HCL 40 MG IV PRN ×2 (01:38)
[2020-01-22] MEDS ORDERED: RINGERS SOLUTION,LACTATED 1,000 ML IV ONE (01:39)
[2020-01-22] MEDS ORDERED: METOPROLOL TARTRATE PF/INJ 5 MG/5 ML SDV IV ONE (01:42)
[2020-01-22] MEDS ORDERED: DILTIAZEM HCL/D5W 125 MG/125 ML RTUINJ IV ONE (02:28)
[2020-01-22] MEDS: DILTIAZEM HCL/D5W 125 MG/125 ML RTUINJ IV PRN ×2 (02:30→14:34)
[2020-01-22] MEDS ORDERED: DEXTROSE 40% GEL 15 GM TUBE PO PRN ×2 (04:21)
[2020-01-22] MEDS ORDERED: DEXTROSE 50%-WATER 25 GM/50 ML DISP.SYRIN IV PRN ×2 (04:21)
[2020-01-22] MEDS ORDERED: GLUCAGON,HUMAN RECOMB 1 MG INJ SUBCUT PRN (04:21)
[2020-01-22 04:27] LABS: HEMOGLOBIN 9.1 g/dL (12.0-15.5); MEAN CORPUSCULAR HEMOGLOBIN 32.9 pg (27.0-33.4); MEAN CORPUSCULAR HGB CONC 35.2 g/dL (32.0-36.0); MEAN CORPUSCULAR VOLUME 94 fl (80-97); PLATELET COUNT 109 10^3/uL (150-450); RED BLOOD COUNT 2.78 10^6/uL (3.72-5.28); RED CELL DISTRIBUTION WIDTH 13.7 % (11.5-14.0); WHITE BLOOD COUNT 5.8 10^3/uL (4.0-10.5)
[2020-01-22 04:38] LABS: ANION GAP 11 (5-19); BLOOD UREA NITROGEN 9 mg/dL (7-20); CALCIUM 8.2 mg/dL (8.4-10.2); CARBON DIOXIDE 19 mmol/L (22-30); CHLORIDE 100 mmol/L (98-107); GLUCOSE 94 mg/dL (75-110); PHOSPHORUS 2.7 mg/dL (2.5-4.5); POTASSIUM 3.8 mmol/L (3.6-5.0)
[2020-01-22 04:43] LABS: ABSOLUTE LYMPHOCYTES# (MANUAL) 0.3 10^3/uL (0.5-4.7); ABSOLUTE MONOCYTES # (MANUAL) 0.1 10^3/uL (0.1-1.4); BAND NEUTROPHILS % (MANUAL) 1 % (3-5); BASOPHILS % (MANUAL) 0 % (0-2); EOSINOPHILS % (MANUAL) 0 % (0-6); LYMPHOCYTES % (MANUAL) 5 % (13-45); MONOCYTES % (MANUAL) 2 % (3-13); SEGMENTED NEUTROPHILS % (MAN) 92 % (42-78); TOTAL CELLS COUNTED 100
[2020-01-22 04:44] LABS: PLATELET COMMENT DECREASED; RBC MORPHOLOGY COMMENT NORMO-CYTIC/CHROMIC
[2020-01-22] MEDS ORDERED: MAGNESIUM SULFATE 4 GM/100 ML RTUPB IV ONE (08:00)
[2020-01-22] MEDS ORDERED: CARBAMAZEPINE 200 MG TABLET PO SCH (10:00)
[2020-01-22] MEDS: CARBAMAZEPINE 200 MG TABLET PO SCH ×2 (10:51→23:30)
[2020-01-22] MEDS: POLYETHYLENE GLYCOL 3350 POWDER 17 GM/1 PACKET PO SCH (10:52)
[2020-01-22] MEDS: ACETAMINOPHEN 325 MG TABLET PO PRN ×2 (10:52→23:27)
[2020-01-22] MEDS: APIXABAN 5 MG TABLET PO SCH ×2 (10:52→18:00)
[2020-01-22] MEDS: CEFTRIAXONE 1 GM/D5W RTU 1 GM/50 ML RTUPB IV SCH (10:54)
[2020-01-22] MEDS: NYSTATIN TOPICAL POWDER 15 GM TP SCH ×3 (10:56→18:01)
[2020-01-22] MEDS: PYRIDOXINE HCL 50 MG TABLET PO SCH (10:56)
[2020-01-22] MEDS ORDERED: VANCOMYCIN HCL 0 MG in DEXTROSE 5%-WATER 250 ML IV NR (21:30)
--- NOTE | 2020-01-22 21:47 | PDOC CRITICAL CARE PROG REPORT ---
General Date:: 01/22/20 ICU Day:: 2 Hospital Day:: 2 Resuscitation Status: Full Code Events in the past 12 to 24 Hours:: 01.22.2020: Patient's blood pressure has improved and she is weaning. She was poorly responsive to esmolol therapy and transition to Cardizem with good results. With reduction in heart rate her blood pressures improved as well. He is much more awake today and conversant. She even remembered this author's name. Review of systems relevant to events:: 01.22.2020: Vasopressor therapy is weaning. Heart rate in the 80s non-paced. No chest pain, abdominal pain or dyspnea. SARS, 2-CoViD19 test is negative System with previous diagnosis of dysphasia speech evaluated her and placed her on mechanical soft meat and nectar thick liquid. Reason for ICU Addmission:: Sepsis, UTI, COVID r/o - Medications: Medications reviewed and adjusted accordingly: Yes Vasopressors:: Adarsh-Synephrine and Cardizem Physical Exam Vital Signs: Temp Pulse Resp BP Pulse Ox 97.9 F 81 22 H 103/62 99 01/22/20 20:00 01/22/20 16:00 01/22/20 18:00 01/22/20 17:59 01/22/20 18:00 Intake & Output 01/21/20 01/22/20 01/23/20 06:59 06:59 06:59 Intake Total 1000 4036 1271 Output Total 1315 1515 Balance 1000 2721 -244 Weight 53.07 kg 58 kg Weight/Height Weight 58 kg Height 5 ft 4 in General appearance: PRESENT: no acute distress, cooperative, disheveled, obese Exam: Pleasant communicative albeit lethargic chronically and critically ill-appearing 65-year-old female no active distress she is awake and oriented Head exam: PRESENT: atraumatic, normocephalic Eye exam: PRESENT: conjunctiva pink. ABSENT: conjunctival injection, scleral icterus Neck exam: ABSENT: carotid bruit, JVD, lymphadenopathy, tenderness, thyromegaly, tracheal deviation Respiratory exam: PRESENT: clear to auscultation olamide, unlabored. ABSENT: accessory muscle use, retraction, tachypnea Cardiovascular exam: PRESENT: systolic murmur. ABSENT: bradycardia, irregular rhythm Pulses: ABSENT: normal dorsalis pedis pul Vascular exam: PRESENT: normal capillary refill. ABSENT: pallor GI/Abdominal exam: PRESENT: normal bowel sounds, soft. ABSENT: ascites, diste nded, guarding, mass, organolmegaly, rebound, tenderness Rectal exam: PRESENT: deferred Gentrourinary exam: PRESENT: indwelling catheter Extremities exam: ABSENT: pedal edema Musculoskeletal exam: PRESENT: deformity - Right BKA Neurological exam: PRESENT: alert, awake, oriented to person, oriented to place, oriented to time, oriented to situation, other - Patient is blind. ABSENT: motor sensory deficit Psychiatric exam: PRESENT: appropriate affect, normal mood. ABSENT: agitated Skin exam: PRESENT: dry, intact, normal color, warm. ABSENT: cyanosis, mottled, rash Tubes/Lines: PRESENT: Central Line - In right femoral region based 01/20/2019, Other - Gale type urinary catheter Laboratory/Radiographs Laboratory Results: 01/22/20 03:26 01/22/20 03:26 01/22/20 01/22/20 03:26 03:26 WBC 5.8 RBC 2.78 L Hgb 9.1 L Hct 26.0 L MCV 94 MCH 32.9 MCHC 35.2 RDW 13.7 Plt Count 109 L Seg Neutrophils % Not Reportable Sodium 130.2 L Potassium 3.8 Chloride 100 Carbon Dioxide 19 L Anion Gap 11 BUN 9 Creatinine 0.39 L Est GFR ( Amer) > 60 Glucose 94 Calcium 8.2 L Phosphorus 2.7 Magnesium 1.5 L 01/21/20 07:13 Blood Blood Culture (PCR) - Final Staphylococcus Aureus 01/21/20 01/21/20 01/21/20 05:50 07:13 09:46 CK-MB (CK-2) 2.01 Troponin I Cancelled 0.024 0.013 Impressions: Chest X-Ray 01/21/20 05:56 IMPRESSION: NO ACUTE RADIOGRAPHIC FINDING IN THE CHEST. All labs, radiographs, diagnostic studies and EKGs were personally reviewed: Yes In addition, reports of radiographic and diagnostic studies were read: Yes Assessment and Plan - Diagnosis (1) Sepsis Qualifiers: Sepsis type: sepsis due to unspecified organism Sepsis acute organ dysfunction status: without acute organ dysfunction Qualified Code(s): A41.9 - Sepsis, unspecified organism Is this a current diagnosis for this admission?: Yes (2) Septic shock Is this a current diagnosis for this admission?: Yes (3) Suspected COVID-19 virus infection Is this a current diagnosis for this admission?: Yes (4) Acute metabolic encephalopathy Is this a current diagnosis for this admission?: Yes (5) Urinary tract infection Qualifiers: Urinary tract infection type: acute cystitis Is this a current diagnosis for this admission?: Yes (6) Gram-positive bacteremia Is this a current diagnosis for this admission?: Yes Plan: suspect contaminant Plan Summary: Patient's overall condition has improved. We will continue to wean vasopressor therapy. She is still dependent on this requires critical care for this. We are notified that there was a positive blood Gram stain that is incongruent with a urine Gram stain. Blood has gram-positive cocci while urine has gram- negative rods. Suspicion is that this may be contaminant however I have added vancomycin to her armamentarium. Does excessive anxiety ridden skin picking. This may be a source. I am impressed with the patient's mental status and her encephalopathy is dramatically improved. Will await cultures and then de-escalate therapy. 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 This may be result of medications. We will continue to follow and monitor closely. If sodium continues to decrease or becomes symptomatic will need to stop fluvoxamine I restarted her anticoagulation for her atrial fibrillation. Had been on hold from the snf facility after pacemaker/AICD placement. Reviewed her old records noted that on atrial fibrillation and the AICD was placed secondary to poor cardiac function. Will obtain official formal echo for our records. Critical Time Critical Time (minutes): 42 Level of Care: ICU Anticipated discharge: SNF Within: within 72 hours -: 1. The care of a critical patient is a dynamic process. This note is a client support representative synopsis but static in nature. The timeframe for treatments given in order is not necessarily the actual time these treatments may have been done. 2. This patient requires critical care secondary to ongoing requirements for therapy not offered or safe outside the critical care environment. Transfer to a lower level of care will result in altered life or limb morbidity and mortality. 3. Multidisciplinary rounds completed. 4. ABCDE bundle addressed.
[2020-01-22] MEDS ORDERED: VANCOMYCIN HCL INJ 1000 MG VIAL IV PRN (22:10)
[2020-01-22] MEDS ORDERED: VANCOMYCIN HCL 1,250 MG in DEXTROSE 5%-WATER 250 ML IV ONE (23:00)
[2020-01-22] MEDS: ATORVASTATIN CALCIUM 40 MG TABLET PO SCH (23:26)
[2020-01-22] MEDS: MIRTAZAPINE 15 MG TABLET PO SCH (23:26)
[2020-01-22] MEDS: MELATONIN 5 MG TABLET PO SCH (23:26)
[2020-01-22] MEDS: DILTIAZEM HCL 30 MG TABLET PO SCH (23:27)
[2020-01-23] MEDS: DILTIAZEM HCL 30 MG TABLET PO SCH ×5 (00:04→23:46)
[2020-01-23] MEDS: RINGERS SOLUTION,LACTATED 1,000 ML IV PRN ×2 (00:04→11:22)
[2020-01-23] MEDS: DILTIAZEM HCL/D5W 125 MG/125 ML RTUINJ IV PRN (03:06)
[2020-01-23 03:18] LABS: HEMATOCRIT 25.2 % (36.0-47.0); HEMOGLOBIN 8.9 g/dL (12.0-15.5); MEAN CORPUSCULAR HEMOGLOBIN 32.7 pg (27.0-33.4); MEAN CORPUSCULAR HGB CONC 35.4 g/dL (32.0-36.0); MEAN CORPUSCULAR VOLUME 93 fl (80-97); PLATELET COUNT 119 10^3/uL (150-450); RED BLOOD COUNT 2.72 10^6/uL (3.72-5.28); RED CELL DISTRIBUTION WIDTH 13.8 % (11.5-14.0); WHITE BLOOD COUNT 4.9 10^3/uL (4.0-10.5)
[2020-01-23 03:29] LABS: ANION GAP 5 (5-19); BLOOD UREA NITROGEN 4 mg/dL (7-20); CALCIUM 7.9 mg/dL (8.4-10.2); CARBON DIOXIDE 27 mmol/L (22-30); CHLORIDE 99 mmol/L (98-107); GLUCOSE 112 mg/dL (75-110); PHOSPHORUS 1.4 mg/dL (2.5-4.5)
[2020-01-23 03:32] LABS: POTASSIUM 2.9 mmol/L (3.6-5.0)
[2020-01-23 04:00] LABS: ABSOLUTE LYMPHOCYTES# (MANUAL) 0.2 10^3/uL (0.5-4.7); ABSOLUTE MONOCYTES # (MANUAL) 0.7 10^3/uL (0.1-1.4); BAND NEUTROPHILS % (MANUAL) 5 % (3-5); BASOPHILS % (MANUAL) 0 % (0-2); EOSINOPHILS % (MANUAL) 1 % (0-6); LYMPHOCYTES % (MANUAL) 4 % (13-45); MONOCYTES % (MANUAL) 14 % (3-13); SEGMENTED NEUTROPHILS % (MAN) 76 % (42-78); TOTAL CELLS COUNTED 100
[2020-01-23 04:01] LABS: PLATELET COMMENT DECREASED
[2020-01-23 04:04] LABS: BURR CELLS SLIGHT
[2020-01-23] MEDS ORDERED: POTASSI CL 20 MEQ/50 ML RIDER 20 MEQ/50 ML RTUPB IV ONE (04:17)
[2020-01-23] MEDS: POTASSI CL 20 MEQ/50 ML RIDER 20 MEQ/50 ML RTUPB IV SCH ×5 (04:49→21:52)
[2020-01-23] MEDS: APIXABAN 5 MG TABLET PO SCH ×2 (09:23→17:41)
[2020-01-23] MEDS: PYRIDOXINE HCL 50 MG TABLET PO SCH (09:23)
[2020-01-23] MEDS: POLYETHYLENE GLYCOL 3350 POWDER 17 GM/1 PACKET PO SCH (09:23)
[2020-01-23] MEDS: NYSTATIN TOPICAL POWDER 15 GM TP SCH ×2 (09:25→17:42)
[2020-01-23] MEDS: CARBAMAZEPINE 200 MG TABLET PO SCH ×2 (09:26→21:52)
[2020-01-23] MEDS: CEFTRIAXONE 1 GM/D5W RTU 1 GM/50 ML RTUPB IV SCH (09:26)
[2020-01-23] MEDS ORDERED: (PENDING PHARMACY ID) (Potassium Chloride [K-Tab Er] 20 MEQ) PO SCH (12:45)
--- NOTE | 2020-01-23 13:02 | PDOC CRITICAL CARE PROG REPORT ---
General Date:: 01/23/20 ICU Day:: 3 Hospital Day:: 3 Resuscitation Status: Full Code Events in the past 12 to 24 Hours:: 01.23.2020: Patient has now been successfully weaned off vasopressor therapy. She had noted staph aureus in her blood cultures and are awaiting coagulase thoughts. Awaiting this we placed her on vancomycin because of the concern for her recent pacemaker and to protect the leads from possible seeding. She is conversant today and has no pain. No shortness of breath. She is concerned about some of her swelling in her hands and legs related to volume she received during resuscitation. She has had no seizures. 01.22.2020: Patient's blood pressure has improved and she is weaning. She was poorly responsive to esmolol therapy and transition to Cardizem with good results. With reduction in heart rate her blood pressures improved as well. He is much more awake today and conversant. She even remembered this author's name. Review of systems relevant to events:: 01.23.2020: No hypotension. She has developed recurrent tachycardia with reduction in Cardizem. Started on oral Cardizem but had to be restarted on IV diltiazem this morning. 01.22.2020: Vasopressor therapy is weaning. Heart rate in the 80s non-paced. No chest pain, abdominal pain or dyspnea. SARS, 2-CoViD19 test is negative System with previous diagnosis of dysphasia speech evaluated her and placed her on mechanical soft meat and nectar thick liquid. Reason for ICU Addmission:: Sepsis, UTI, COVID r/o - Medications: Vasopressors:: Cardizem drip Physical Exam Vital Signs: Temp Pulse Resp BP Pulse Ox 98.4 F 105 H 9 L 100/75 97 01/23/20 10:31 01/23/20 08:53 01/23/20 10:31 01/23/20 10:31 01/23/20 10:31 Intake & Output 01/22/20 01/23/20 01/24/20 06:59 06:59 06:59 Intake Total 4036 2736 1114 Output Total 1315 2490 450 Balance 2721 246 664 Weight 58 kg 58 kg Weight/Height Weight 58 kg Height 5 ft 4 in General appearance: PRESENT: no acute distress, cooperative, morbidly obese Exam: Pleasant chronically ill-appearing and ill-appearing 65-year-old female no active distress. She is awake and alert. Patient is blind Head exam: PRESENT: other - Abrasion trauma to ears Eye exam: PRESENT: other - Total blindness. ABSENT: scleral icterus Mouth exam: PRESENT: moist, neck supple Neck exam: ABSENT: JVD, lymphadenopathy, thyromegaly Respiratory exam: PRESENT: unlabored. ABSENT: accessory muscle use Cardiovascular exam: PRESENT: irregular rhythm, tachycardia Pulses: PRESENT: other Vascular exam: PRESENT: normal capillary refill GI/Abdominal exam: PRESENT: soft. ABSENT: ascites, firm, guarding, rigid, tenderness Rectal exam: PRESENT: deferred Gentrourinary exam: PRESENT: indwelling catheter Extremities exam: PRESENT: other - Right BKA Musculoskeletal exam: PRESENT: deformity, other - Right femoral central venous catheter--clean dry and to be removed. ABSENT: dislocation Neurological exam: PRESENT: alert, awake, oriented to person, oriented to place, oriented to time, oriented to situation, motor sensory deficit Psychiatric exam: PRESENT: appropriate affect, normal mood Skin exam: PRESENT: dry, intact, warm. ABSENT: cyanosis, rash Tubes/Lines: PRESENT: Other - Gale type urinary catheter Laboratory/Radiographs Laboratory Results: 01/23/20 03:00 01/23/20 03:00 01/23/20 01/23/20 03:00 03:00 WBC 4.9 RBC 2.72 L Hgb 8.9 L Hct 25.2 L MCV 93 MCH 32.7 MCHC 35.4 RDW 13.8 Plt Count 119 L Seg Neutrophils % Not Reportable Sodium 130.5 L Potassium 2.9 L* Chloride 99 Carbon Dioxide 27 Anion Gap 5 BUN 4 L Creatinine 0.27 L Est GFR ( Amer) > 60 Glucose 112 H Calcium 7.9 L Phosphorus 1.4 L Magnesium 2.0 01/21/20 07:29 Blood Blood Culture (PCR) - Final Staphylococcus Aureus 01/21/20 07:13 Blood Blood Culture (PCR) - Final Staphylococcus Aureus 01/21/20 06:19 Gale Catheter Urine Culture - Final Enterobacter Cloacae Escherichia Coli 01/21/20 01/21/20 01/21/20 05:50 07:13 09:46 CK-MB (CK-2) 2.01 Troponin I Cancelled 0.024 0.013 Impressions: Chest X-Ray 01/21/20 05:56 IMPRESSION: NO ACUTE RADIOGRAPHIC FINDING IN THE CHEST. All labs, radiographs, diagnostic studies and EKGs were personally reviewed: Yes In addition, reports of radiographic and diagnostic studies were read: Yes Assessment and Plan - Diagnosis (1) Sepsis Qualifiers: Sepsis type: sepsis due to unspecified organism Sepsis acute organ dysfunction status: without acute organ dysfunction Qualified Code(s): A41.9 - Sepsis, unspecified organism Is this a current diagnosis for this admission?: Yes Plan: Improving please see plan below (2) Septic shock Is this a current diagnosis for this admission?: Yes (3) Suspected COVID-19 virus infection Is this a current diagnosis for this admission?: Yes (4) Acute metabolic encephalopathy Is this a current diagnosis for this admission?: Yes (5) Urinary tract infection Qualifiers: Urinary tract infection type: acute cystitis Is this a current diagnosis for this admission?: Yes (6) Gram-positive bacteremia Is this a current diagnosis for this admission?: Yes Plan: suspect contaminant but treating until confirmation Plan Summary: 2020: Respiratory: Patient's respiratory status has been stable. No active issues Infectious: Has gram-negative growing in her urine which are sensitive to current antibiotic regimen. I am concerned about gram-positive's (staph aureus) in her bloodstream. I am awaiting the coagulase dusting to determine if this is contaminant or not. Either way she has had a recent pacemaker placed and will continue vancomycin until we can be assured that this is a contaminant and not real. I have re-ordered another blood culture in 48 hours. Continue current antibiotic regimen. Sepsis has improved and her vasopressor therapy has been discontinued Cardiac: Patient has persistent atrial fibrillation which is been difficult to control. We are not surprised by this because she is being prepped for an abl ation and had an AICD/pacemaker in preparation for this. Have restarted IV Cardizem in attempt to control. I have placed a call to Dr. Mina Taylor, her galvanizer and aircraft accessories mechanic to determine the next best treatment for her. She appears to have been responsive to Cardizem but not esmolol. Her pacemaker site is clean dry and intact and has fading ecchymosis. On previous records from [facility] it shows that her ejection fraction is 20 to 25%. I am not sure this is her current situation because she is not on diuretic at presentation. We will start this today and replace electrolytes. Have held Entresto but will discuss with galvanizer about when to start this. Will consider amiodarone if her atrial fibrillation becomes recalcitrant. Notably, she was not on any heart rate modifying medications at home Hematologic: No active issues. She has been restarted on Eliquis. Endocrine: No active issues. Supportive care Renal: Creatinine is low which may suggest the patient may have some degree of volume overload. Will diurese today and discontinue IV fluids. Metabolic: Patient has a history of hypokalemia and we are replacing. We will continue to monitor supportively Alimentary: As noted from yesterday's note patient's dysphagia is ongoing and chronic. Diet has been modified and she appears to be tolerating it. Neurologic: Patient has a reported seizure disorder and is on carbamazepine and Neurontin. Have restarted Neurontin. Patient is categorically blind Lines/Tubes: Central line placed on admission for 01.21.2020; in right groin. Gale present and required 01.22.2020: Patient's overall condition has improved. We will continue to wean vasopressor therapy. She is still dependent on this requires critical care for this. We are notified that there was a positive blood Gram stain that is incongruent with a urine Gram stain. Blood has gram-positive cocci while urine has gram- negative rods. Suspicion is that this may be contaminant however I have added vancomycin to her armamentarium. Does excessive anxiety ridden skin picking. This may be a source. I am impressed with the patient's mental status and her encephalopathy is dramatically improved. Will await cultures and then de-escalate therapy. 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 This may be result of medications. We will continue to follow and monitor closely. If sodium continues to decrease or becomes symptomatic will need to stop f luvoxamine I restarted her anticoagulation for her atrial fibrillation. Had been on hold from the long term facility after pacemaker/AICD placement. Reviewed her old records noted that on atrial fibrillation and the AICD was placed secondary to poor cardiac function. Will obtain official formal echo for our records. Critical Time Critical Time (minutes): 42 Level of Care: ICU -: 1. The care of a critical patient is a dynamic process. This note is a public service representative synopsis but static in nature. The timeframe for treatments given in order is not necessarily the actual time these treatments may have been done. 2. This patient requires critical care secondary to ongoing requirements for therapy not offered or safe outside the critical care environment. Transfer to a lower level of care will result in altered life or limb morbidity and mortality. 3. Multidisciplinary rounds completed. 4. ABCDE bundle addressed.
[2020-01-23] MEDS: GABAPENTIN 300 MG CAPSULE PO SCH ×2 (13:34→17:41)
[2020-01-23] MEDS: POTASSIUM CHLORIDE 10 MEQ TABLET.ER PO SCH (13:34)
[2020-01-23] MEDS: FUROSEMIDE 20 MG TABLET PO SCH ×2 (13:35→20:32)
[2020-01-23 14:40] LABS: ANION GAP 6 (5-19); BLOOD UREA NITROGEN 2 mg/dL (7-20); CARBON DIOXIDE 18 mmol/L (22-30); CHLORIDE 112 mmol/L (98-107); GLUCOSE 71 mg/dL (75-110)
[2020-01-23 14:45] LABS: POTASSIUM 2.4 mmol/L (3.6-5.0)
[2020-01-23 14:54] LABS: CALCIUM 5.8 mg/dL (8.4-10.2)
[2020-01-23] MEDS ORDERED: POTASSIUM CHLORIDE 20 MEQ PACKET PO ONE (16:18)
[2020-01-23] MEDS: VANCOMYCIN HCL 1,000 MG in DEXTROSE 5%-WATER 250 ML IV SCH (17:42)
[2020-01-23] MEDS: ACETAMINOPHEN 325 MG TABLET PO PRN (21:50)
[2020-01-23] MEDS: ATORVASTATIN CALCIUM 40 MG TABLET PO SCH (21:51)
[2020-01-23] MEDS: MELATONIN 5 MG TABLET PO SCH (21:51)
[2020-01-23] MEDS: MIRTAZAPINE 15 MG TABLET PO SCH (21:52)
--- NOTE | 2020-01-23 21:58 | XCELERA REPORT ---
[address] [address] Transthoracic Echocardiogram Report Name: CRISTINE WATERMAN Age: 65 yrs Gender: Female : 1955 Patient Status: Inpatient Patient Location: ICU^606^A Study Date: 01/23/2020 02:25 PM Height: 64 in Weight: 127 lb BSA: 1.6 m2 Procedure: A two-dimensional transthoracic echocardiogram with color flow and Doppler was performed. Study Quality: Poor. The study was technically limited with all images being suboptimal in quality. Reason For Study: cardiomyopathy History: cardiomyopathy. Ordering Physician: JEANINE BATISTA Performed By: Annabelle Zuluaga Interpretation Summary The left ventricle is mildly dilated. There is normal left ventricular wall thickness. LV EF is 20% Left ventricular systolic function is severely reduced. There is severe global hypokinesis of the left ventricle. The right ventricle is not well visualized secondary to technical limitations Right atrium not well visualized secondary to technical limitations The left atrium is moderately dilated. There is no evidence of mitral valve prolapse. There is no vegetation seen on the mitral valve. There is no mitral valve stenosis. There is a trace to mild amount of mitral regurgitation There is no aortic valvular vegetation. There is no aortic valve stenosis There is no LVOT obstruction. No aortic regurgitation is present. There is no tricuspid stenosis. There is a mild amount of tricuspid regurgitation There is mild pulmonary hypertension by echo RVSP is 46 mm of Hg , with RA mean of 10. There is no pulmonic valvular regurgitation. The aortic root is not well visualized but is probably normal size. The inferior vena cava was not visualized There is no pericardial effusion. There is an AICD / Pacemaker lead i RV.Cannot assess for ASD ,VSD , or PFO. MMode/2D Measurements & Calculations RVDd: 2.1 cm LVIDd: 3.3 cm FS: 7.2 % Ao root diam: 2.9 cm IVSd: 1.1 cm LVIDs: 3.0 cm EDV(Teich): 42.8 ml Ao root area: 6.7 cm2 LVPWd: 1.0 cm ESV(Teich): 35.7 ml EF(Teich): 16.7 % LVOT diam: 1.9 cm LVOT area: 2.8 cm2 Doppler Measurements & Calculations MV E max abhi: MV dec slope: Ao V2 max: LV V1 max P.0 cm/sec 610.4 cm/sec2 94.9 cm/sec 1.6 mmHg MV dec time: 0.16 sec Ao max PG: LV V1 max: 3.6 mmHg 63.7 cm/sec JULIA(V,D): 1.9 cm2 PA V2 max: TR max abhi: 81.3 cm/sec 276.2 cm/sec PA max P.6 mmHg TR max P.9 mmHg Left Ventricle The left ventricle is mildly dilated. There is normal left ventricular wall thickness. LV EF is 20%. Left ventricular systolic function is severely reduced. LV diastolic function could not be adequately assessed due to atrial fibrilation. There is severe global hypokinesis of the left ventricle. Right Ventricle The right ventricle is not well visualized secondary to technical limitations. There is an AICD / Pacemaker lead i RV.Cannot assess for ASD ,VSD , or PFO. Atria Right atrium not well visualized secondary to technical limitations. The left atrium is moderately dilated. Mitral Valve There is no evidence of mitral valve prolapse. There is no vegetation seen on the mitral valve. There is no mitral valve stenosis. There is a trace to mild amount of mitral regurgitation. Aortic Valve There is no aortic valvular vegetation. There is no aortic valve stenosis. There is no LVOT obstruction. No aortic regurgitation is present. Tricuspid Valve There is no tricuspid stenosis. There is a mild amount of tricuspid regurgitation. There is mild pulmonary hypertension by echo. RVSP is 46 mm of Hg , with RA mean of 10. Pulmonic Valve There is no pulmonic valvular stenosis. There is no pulmonic valvular regurgitation. Great Vessels The aortic root is not well visualized but is probably normal size. The inferior vena cava was not visualized. Effusions There is no pericardial effusion. : JEANINE BATISTA Lakshmi
[2020-01-24] MEDS ORDERED: RINGERS SOLUTION,LACTATED 1,000 ML IV ONE (00:19)
[2020-01-24 01:57] LABS: BLOOD UREA NITROGEN 3 mg/dL (7-20); CALCIUM 7.9 mg/dL (8.4-10.2); CHLORIDE 102 mmol/L (98-107); GLUCOSE 96 mg/dL (75-110)
[2020-01-24 02:03] LABS: ANION GAP 3 (5-19); CARBON DIOXIDE 27 mmol/L (22-30); POTASSIUM 4.4 mmol/L (3.6-5.0)
[2020-01-24] MEDS: DEXTROSE 5%-WATER 250 ML with NOREPINEPHRINE BITARTRATE 4 MG IV PRN ×2 (02:11)
[2020-01-24] MEDS: DILTIAZEM HCL 30 MG TABLET PO SCH ×3 (06:14→18:04)
[2020-01-24 06:27] LABS: HEMATOCRIT 29.3 % (36.0-47.0); HEMOGLOBIN 10.1 g/dL (12.0-15.5); MEAN CORPUSCULAR HEMOGLOBIN 32.2 pg (27.0-33.4); MEAN CORPUSCULAR HGB CONC 34.6 g/dL (32.0-36.0); MEAN CORPUSCULAR VOLUME 93 fl (80-97); PLATELET COUNT 137 10^3/uL (150-450); RED BLOOD COUNT 3.15 10^6/uL (3.72-5.28); RED CELL DISTRIBUTION WIDTH 13.9 % (11.5-14.0)
[2020-01-24 06:50] LABS: ABSOLUTE LYMPHOCYTES# (MANUAL) 0.9 10^3/uL (0.5-4.7); ABSOLUTE MONOCYTES # (MANUAL) 0.5 10^3/uL (0.1-1.4); BAND NEUTROPHILS % (MANUAL) 3 % (3-5); BASOPHILS % (MANUAL) 0 % (0-2); EOSINOPHILS % (MANUAL) 2 % (0-6); LYMPHOCYTES % (MANUAL) 29 % (13-45); MONOCYTES % (MANUAL) 17 % (3-13); SEGMENTED NEUTROPHILS % (MAN) 49 % (42-78); TOTAL CELLS COUNTED 100
[2020-01-24 06:51] LABS: BURR CELLS 1+; OVALOCYTES SLIGHT; PLATELET COMMENT DECREASED; POIKILOCYTOSIS SLIGHT; TEAR DROP CELLS SLIGHT; TOXIC GRANULATION SLIGHT
[2020-01-24 06:57] LABS: BLOOD UREA NITROGEN 2 mg/dL (7-20); CALCIUM 8.3 mg/dL (8.4-10.2); CARBON DIOXIDE 29 mmol/L (22-30); CHLORIDE 100 mmol/L (98-107); GLUCOSE 104 mg/dL (75-110); PHOSPHORUS 1.6 mg/dL (2.5-4.5); POTASSIUM 4.3 mmol/L (3.6-5.0)
[2020-01-24 07:19] LABS: ANION GAP 4 (5-19)
[2020-01-24] MEDS ORDERED: DIGOXIN INJ 0.5 MG/2 ML AMPULE IV SCH (10:00)
[2020-01-24] MEDS: POTASSIUM CHLORIDE 10 MEQ TABLET.ER PO SCH (10:05)
[2020-01-24] MEDS: FUROSEMIDE 20 MG TABLET PO SCH ×2 (10:06→18:04)
[2020-01-24] MEDS: GABAPENTIN 300 MG CAPSULE PO SCH ×3 (10:06→18:05)
[2020-01-24] MEDS: APIXABAN 5 MG TABLET PO SCH ×2 (10:06→18:04)
[2020-01-24] MEDS: ALBUMIN HUMAN 12.5 GM/50 ML RTUINJ IV SCH ×4 (10:08→14:02)
[2020-01-24] MEDS: POLYETHYLENE GLYCOL 3350 POWDER 17 GM/1 PACKET PO SCH (10:09)
[2020-01-24] MEDS: CEFEPIME 1 GM/D5W RTU 1 GM/50 ML RTUPB IV SCH ×2 (10:12→21:39)
[2020-01-24] MEDS: CARBAMAZEPINE 200 MG TABLET PO SCH ×2 (13:48→21:41)
[2020-01-24] MEDS: PYRIDOXINE HCL 50 MG TABLET PO SCH (13:49)
[2020-01-24] MEDS: NYSTATIN TOPICAL POWDER 15 GM TP SCH ×2 (14:03→19:01)
[2020-01-24] MEDS: ACETAMINOPHEN 325 MG TABLET PO PRN (14:03)
[2020-01-24] MEDS ORDERED: DIGOXIN INJ 0.5 MG/2 ML AMPULE IV ONE (14:45)
[2020-01-24] MEDS: VANCOMYCIN HCL 1,000 MG in DEXTROSE 5%-WATER 250 ML IV SCH (18:05)
--- NOTE | 2020-01-24 18:33 | Progress Note ---
Provider Note Provider Note: ICU downgrade accept note: Extensive conversation with Dr. Candelaria regarding the patient's unfortunately rather complicated clinical course which included admission to ICU for septic shock, UTI, bacteremia, refractory A. fib with RVR, recent AICD/pacemaker implantation with possible infected hardware. Patient was hypotensive earlier today and was weaned off of pressors successfully, no longer requires them currently. Patient's urine culture has grown E. coli and Enterobacter and her initial blood culture has grown coag positive Staphylococcus. Patient has appropriate antibiotic coverage for all these organisms currently. A second blood culture is pending. Patient will need a KALLI if her blood cultures are persistently positive, unfortunately these are not done at this facility currently the patient would need transfer to an outside facility to have this done. Patient was set to have an ablation for her refractory A. fib at [facility] by Dr. Freitas. If her A. fib continues to be refractory, she may need transfer there to have this ablation done. If there is persistently positive blood cultures and there is concern that her cardiac hardware is infected, she will certainly need transfer back to [facility] to have this removed and eventually replaced. Dr. Candelaria has started her on digoxin with noted improvement in her heart rate today. Patient is a long-term resident at a nursing facility as her family can no longer financially support her and care for her. Hospitalist medicine service accepts this patient and will take over her care when she arrives on the medicine floor. Please call with questions or concerns.
--- NOTE | 2020-01-24 19:00 | PDOC CRITICAL CARE PROG REPORT ---
General Date:: 01/24/20 ICU Day:: 4 Hospital Day:: 4 Resuscitation Status: Full Code Events in the past 12 to 24 Hours:: 01.24.2020: Patient has been weaning on Cardizem but unfortunately required reinitiation of Adarsh-Synephrine. These are now being weaned to off. She has no real complaints other than being hungry. 01.23.2020: Patient has now been successfully weaned off vasopressor therapy. She had noted staph aureus in her blood cultures and are awaiting coagulase thoughts. Awaiting this we placed her on vancomycin because of the concern for her recent pacemaker and to protect the leads from possible seeding. She is conversant today and has no pain. No shortness of breath. She is concerned about some of her swelling in her hands and legs related to volume she received during resuscitation. She has had no seizures. 01.22.2020: Patient's blood pressure has improved and she is weaning. She was poorly responsive to esmolol therapy and transition to Cardizem with good results. With reduction in heart rate her blood pressures improved as well. He is much more awake today and conversant. She even remembered this author's name. Review of systems relevant to events:: 01.24.2020: Patient was going to be initiated on digoxin loading however calcium was too low to accomplish this. With replacement potassium we have also seen an improvement in her heart rate. She still is in atrial fibrillation but a controlled rate less than 100. Been no chest pain nor neurological dysfunction. Repeat blood cultures are still pending but thus far no repeat cultures have grown any staph aureus. Speciation is still pending. During the of this note patient's heart rate went up in the 140s off Cardizem and digoxin loading was started. Levophed is weaned to off. 01.23.2020: No hypotension. She has developed recurrent tachycardia with re duction in Cardizem. Started on oral Cardizem but had to be restarted on IV diltiazem this morning. 01.22.2020: Vasopressor therapy is weaning. Heart rate in the 80s non-paced. No chest pain, abdominal pain or dyspnea. SARS, 2-CoViD19 test is negative System with previous diagnosis of dysphasia speech evaluated her and placed her on mechanical soft meat and nectar thick liquid. Reason for ICU Addmission:: Sepsis, UTI, COVID r/o - Medications: Vasopressors:: Cardizem drip only Physical Exam Vital Signs: Temp Pulse Resp BP Pulse Ox 97.3 F 122 H 12 104/58 L 99 01/24/20 08:00 01/24/20 09:01 01/24/20 08:00 01/24/20 08:00 01/24/20 08:00 Intake & Output 01/23/20 01/24/20 01/25/20 06:59 06:59 06:59 Intake Total 2736 1909 40 Output Total 2127 1980 275 Balance 246 71 -589 Weight 58 kg 59.4 kg Weight/Height Weight 59.4 kg Height 5 ft 4 in Laboratory/Radiographs Laboratory Results: 01/24/20 06:07 01/24/20 06:07 01/23/20 01/24/20 01/24/20 13:48 01:33 06:07 WBC RBC Hgb Hct MCV MCH MCHC RDW Plt Count Seg Neutrophils % Sodium 135.8 L 132.2 L 132.8 L Potassium 2.4 L* 4.4 D 4.3 Chloride 112 H 102 100 Carbon Dioxide 18 L 27 29 Anion Gap 6 3 L 4 L BUN 2 L 3 L 2 L Creatinine 0.21 L 0.29 L 0.29 L Est GFR ( Amer) > 60 > 60 > 60 Glucose 71 L 96 104 Calcium 5.8 L* 7.9 L 8.3 L Phosphorus 1.6 L Magnesium 1.7 01/24/20 06:07 WBC 3.0 L RBC 3.15 L Hgb 10.1 L Hct 29.3 L MCV 93 MCH 32.2 MCHC 34.6 RDW 13.9 Plt Count 137 L Seg Neutrophils % Not Reportable Sodium Potassium Chloride Carbon Dioxide Anion Gap BUN Creatinine Est GFR ( Amer) Glucose Calcium Phosphorus Magnesium 01/21/20 07:29 Blood Blood Culture (PCR) - Final Staphylococcus Aureus 01/21/20 07:13 Blood Blood Culture (PCR) - Final Staphylococcus Aureus 01/21/20 06:19 Gale Catheter Urine Culture - Final Enterobacter Cloacae Escherichia Coli 01/21/20 01/21/20 01/21/20 05:50 07:13 09:46 CK-MB (CK-2) 2.01 Troponin I Cancelled 0.024 0.013 Impressions: Chest X-Ray 01/21/20 05:56 IMPRESSION: NO ACUTE RADIOGRAPHIC FINDING IN THE CHEST. Assessment and Plan - Diagnosis (1) Sepsis Qualifiers: Sepsis type: sepsis due to unspecified organism Sepsis acute organ dysf unction status: without acute organ dysfunction Qualified Code(s): A41.9 - Sepsis, unspecified organism Is this a current diagnosis for this admission?: Yes (2) Gram-positive bacteremia Is this a current diagnosis for this admission?: Yes Plan: Staph aureus coag positive-MSSA (3) Septic shock Is this a current diagnosis for this admission?: Yes (4) Acute metabolic encephalopathy Is this a current diagnosis for this admission?: Yes Plan: Resolved (5) Urinary tract infection Qualifiers: Urinary tract infection type: acute cystitis Is this a current diagnosis for this admission?: Yes (7) Suspected COVID-19 virus infection Is this a current diagnosis for this admission?: Yes Plan: Negative. No COVID Plan Summary: 01.24.2020: Patient's Levophed requirements are now discontinued she had been weaned off Cardizem drip however had recrudescence of her atrial fibrillation at high rate. Given 1 dose of 0.25 mg of digoxin with improvement however had an abrupt increase in heart rate which required an additional 0.25 mg dose. She is now being loaded for a (total of 3)doses every 6 hours. Her bacteremia appears to be MSSA and follow-up blood cultures will need to be done to determine if this is persistent. We are assuming this is coming from skin and if the cultures remain positive she will need a KALLI. She has dual gram negative bacteremia in her urine and will need antibiotics for 3 to 5 days. The MSSA is sensitive to the antibiotic she is on for her urine so she will need to be changed to Ancef after the antibiotics for urine infection are completed. Usual suggested time for treatment is 4 weeks but ID may need to be consulted especially if there is persistent bacteremia. Patient has improved but requires Cardizem drip. Continue supportive care. Is on Eliquis for her atrial fibrillation. Will need to follow-up with Dr. Jaime Brewer at [facility] especially if her atrial fibrillation continues to be problematic She did not appear to respond to beta-nash therapy. 01.23.2020: Respiratory: Patient's respiratory status has been stable. No active issues Infectious: Has gram-negative growing in her urine which are sensitive to current antibiotic regimen. I am concerned about gram-positive's (staph aureus) in her bloodstream. I am awaiting the coagulase dusting to determine if this is contaminant or not. Either way she has had a recent pacemaker placed and will continue vancomycin until we can be assured that this is a contaminant and not real. I have re-ordered another blood culture in 48 hours. Continue current antibiotic regimen. Sepsis has improved and her vasopressor therapy has been discontinued Cardiac: Patient has persistent atrial fibrillation which is been difficult to control. We are not surprised by this because she is being prepped for an ablation and had an AICD/pacemaker in preparation for this. Have restarted IV Cardizem in attempt to control. I have placed a call to Dr. Mina Taylor, her windows server specialist and director medicare sales to determine the next best treatment for her. She appears to have been responsive to Cardizem but not esmolol. Her pacemaker site is clean dry and intact and has fading ecchymosis. On previous records from [facility] it shows that her ejection fraction is 20 to 25%. I am not sure this is her current situation because she is not on diuretic at presentation. We will start this today and replace electrolytes. Have held Entresto but will discuss with windows server specialist about when to start this. Will consider amiodarone if her atrial fibrillation becomes recalcitrant. Notably, she was not on any heart rate modifying medications at home Hematologic: No active issues. She has been restarted on Eliquis. Endocrine: No active issues. Supportive care Renal: Creatinine is low which may suggest the patient may have some degree of volume overload. Will diurese today and discontinue IV fluids. Metabolic: Patient has a history of hypokalemia and we are replacing. We will continue to monitor supportively Alimentary: As noted from yesterday's note patient's dysphagia is ongoing and chronic. Diet has been modified and she appears to be tolerating it. Neurologic: Patient has a reported seizure disorder and is on carbamazepine and Neurontin. Have restarted Neurontin. Patient is categorically blind Lines/Tubes: Central line placed on admission for 01.21.2020; in right groin. Gale present and required 01.22.2020: Patient's overall condition has improved. We will continue to wean vasopressor therapy. She is still dependent on this requires critical care for this. We are notified that there was a positive blood Gram stain that is incongruent with a urine Gram stain. Blood has gram-positive cocci while urine has gram- negative rods. Suspicion is that this may be contaminant however I have added vancomycin to her armamentarium. Does excessive anxiety ridden skin picking. This may be a source. I am impressed with the patient's mental status and her encephalopathy is dramatically improved. Will await cultures and then de-escalate therapy. 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 This may be result of medications. We will continue to follow and monitor closely. If sodium continues to decrease or becomes symptomatic will need to stop fluvoxamine I restarted her anticoagulation for her atrial fibrillation. [facility] after pacemaker/AICD placement. Reviewed her old records noted that on atrial fibrillation and the AICD was placed secondary to poor cardiac function. Will obtain official formal echo for our records. Critical Time Critical Time (minutes): 50 Level of Care: ICU -: 1. The care of a critical patient is a dynamic process. This note is a door to door sales representative synopsis but static in nature. The timeframe for treatments given in order is not necessarily the actual time these treatments may have been done. 2. This patient requires critical care secondary to ongoing requirements for therapy not offered or safe outside the critical care environment. Transfer to a lower level of care will result in altered life or limb morbidity and mortality. 3. Multidisciplinary rounds completed. 4. ABCDE bundle addressed.
[2020-01-24] MEDS: DILTIAZEM HCL/D5W 125 MG/125 ML RTUINJ IV PRN (19:11)
[2020-01-24] MEDS: DIGOXIN INJ 0.5 MG/2 ML AMPULE IV SCH (21:33)
[2020-01-24] MEDS: ATORVASTATIN CALCIUM 40 MG TABLET PO SCH (21:41)
[2020-01-24] MEDS: MIRTAZAPINE 15 MG TABLET PO SCH (21:42)
[2020-01-24] MEDS: MELATONIN 5 MG TABLET PO SCH (21:43)
[2020-01-25] MEDS: ACETAMINOPHEN 325 MG TABLET PO PRN ×3 (00:15→21:07)
[2020-01-25] MEDS: DILTIAZEM HCL/D5W 125 MG/125 ML RTUINJ IV PRN (02:40)
[2020-01-25] MEDS: DIGOXIN INJ 0.5 MG/2 ML AMPULE IV SCH (02:42)
[2020-01-25 05:34] LABS: HEMATOCRIT 30.6 % (36.0-47.0); HEMOGLOBIN 10.6 g/dL (12.0-15.5); MEAN CORPUSCULAR HEMOGLOBIN 31.9 pg (27.0-33.4); MEAN CORPUSCULAR HGB CONC 34.7 g/dL (32.0-36.0); MEAN CORPUSCULAR VOLUME 92 fl (80-97); PLATELET COUNT 131 10^3/uL (150-450); RED BLOOD COUNT 3.32 10^6/uL (3.72-5.28); RED CELL DISTRIBUTION WIDTH 14.2 % (11.5-14.0); WHITE BLOOD COUNT 3.9 10^3/uL (4.0-10.5)
[2020-01-25 05:55] LABS: ABSOLUTE LYMPHOCYTES# (MANUAL) 0.5 10^3/uL (0.5-4.7); ABSOLUTE MONOCYTES # (MANUAL) 0.9 10^3/uL (0.1-1.4); BASOPHILS % (MANUAL) 0 % (0-2); EOSINOPHILS % (MANUAL) 5 % (0-6); LYMPHOCYTES % (MANUAL) 11 % (13-45); MONOCYTES % (MANUAL) 22 % (3-13); SEGMENTED NEUTROPHILS % (MAN) 60 % (42-78); TOTAL CELLS COUNTED 100
[2020-01-25 05:56] LABS: ANISOCYTOSIS SLIGHT; PLATELET COMMENT DECREASED; TOXIC VACUOLATION PRESENT
[2020-01-25 06:05] LABS: ANION GAP 5 (5-19); BLOOD UREA NITROGEN 4 mg/dL (7-20); CALCIUM 8.7 mg/dL (8.4-10.2); CARBON DIOXIDE 33 mmol/L (22-30); CHLORIDE 96 mmol/L (98-107); GLUCOSE 94 mg/dL (75-110); PHOSPHORUS 2.2 mg/dL (2.5-4.5); POTASSIUM 3.8 mmol/L (3.6-5.0)
[2020-01-25] MEDS ORDERED: METOPROLOL TARTRATE 25 MG TABLET ONE (09:09)
[2020-01-25] MEDS: CEFEPIME 1 GM/D5W RTU 1 GM/50 ML RTUPB IV SCH (09:13)
[2020-01-25] MEDS: GABAPENTIN 300 MG CAPSULE PO SCH ×3 (09:13→17:18)
[2020-01-25] MEDS: POTASSIUM CHLORIDE 10 MEQ TABLET.ER PO SCH (09:13)
[2020-01-25] MEDS: DIGOXIN 0.125 MG TABLET PO SCH (09:13)
[2020-01-25] MEDS: APIXABAN 5 MG TABLET PO SCH ×2 (09:14→17:18)
[2020-01-25] MEDS: CARBAMAZEPINE 200 MG TABLET PO SCH ×2 (09:14→21:07)
[2020-01-25] MEDS: POLYETHYLENE GLYCOL 3350 POWDER 17 GM/1 PACKET PO SCH (09:14)
[2020-01-25] MEDS: PYRIDOXINE HCL 50 MG TABLET PO SCH (09:14)
[2020-01-25] MEDS: NYSTATIN TOPICAL POWDER 15 GM TP SCH ×2 (09:15→17:01)
[2020-01-25] MEDS: METOPROLOL TARTRATE 25 MG TABLET PO SCH (09:33)
--- NOTE | 2020-01-25 13:42 | PDOC PROGRESS REPORT ---
Subjective Progress Note for:: 01/25/20 Subjective:: Today, patient states that she feels well. Denies any shortness of breath or chest pain. Denies palpitation. On small dose of diltiazem drip at time of encounter multiple plans to wean off today. Reason For Visit: SEPSIS WITH SHOCK Physical Exam Vital Signs: Temp Pulse Resp BP Pulse Ox 97.9 F 86 14 138/70 H 98 01/25/20 11:22 01/25/20 11:22 01/25/20 11:22 01/25/20 11:22 01/25/20 11:22 Intake & Output 01/24/20 01/25/20 01/26/20 06:59 06:59 06:59 Intake Total 1909 322 15 Output Total 6768 5620 Balance -71 -4630 15 Weight 59.4 kg 58.6 kg General appearance: PRESENT: no acute distress, cooperative, other - Blind. ABSENT: hard of hearing Neck exam: ABSENT: JVD Respiratory exam: PRESENT: clear to auscultation olamide, unlabored. ABSENT: tachypnea, wheezes Cardiovascular exam: PRESENT: RRR, +S1, +S2. ABSENT: tachycardia GI/Abdominal exam: PRESENT: normal bowel sounds, soft. ABSENT: rebound, rigid, tenderness Extremities exam: PRESENT: other - Amputation unilaterally and lower extremity Neurological exam: PRESENT: alert, awake, oriented to person, oriented to place Results Laboratory Results: 01/25/20 04:50 01/25/20 04:50 01/25/20 01/25/20 04:50 04:50 WBC 3.9 L RBC 3.32 L Hgb 10.6 L Hct 30.6 L MCV 92 MCH 31.9 MCHC 34.7 RDW 14.2 H Plt Count 131 L Seg Neutrophils % Not Reportable Sodium 133.6 L Potassium 3.8 Chloride 96 L Carbon Dioxide 33 H Anion Gap 5 BUN 4 L Creatinine 0.31 L Est GFR ( Amer) > 60 Glucose 94 Calcium 8.7 Phosphorus 2.2 L Magnesium 1.7 01/23/20 11:25 Blood Blood Culture (PCR) - Final Staphylococcus Species 01/21/20 07:29 Blood Blood Culture (PCR) - Final Staphylococcus Aureus 01/21/20 07:29 Blood Blood Culture - Final Staphylococcus Aureus 01/21/20 07:13 Blood Blood Culture (PCR) - Final Staphylococcus Aureus 01/21/20 07:13 Blood Blood Culture - Final Staphylococcus Aureus 01/21/20 01/21/20 01/21/20 05:50 07:13 09:46 CK-MB (CK-2) 2.01 Troponin I Cancelled 0.024 0.013 Impressions: Chest X-Ray 01/21/20 05:56 IMPRESSION: NO ACUTE RADIOGRAPHIC FINDING IN THE CHEST. Assessment and Plan - Diagnosis (1) Bacteremia due to methicillin susceptible Staphylococcus aureus (MSSA) Is this a current diagnosis for this admission?: Yes Plan: Complicated MSSA bacteremia given persistence of bacteremia and presence of AICD leads. TTE did not show any evidence of endocarditis. Unfortunately KALLI cannot be performed at this facility at this time. Will empirically treat with at least 4 weeks of IV antibiotics given complicated bacteremia. Blood cultures repeated Will treat with nafcillin 2g Q4H (2) Chronic atrial fibrillation with RVR Is this a current diagnosis for this admission?: Yes Plan: Undetermined if paroxysmal versus persistent. Wean Cardizem drip today. Continue digoxin. Will resume patient's beta-nash and on the blood pressure has improved. Continue Eliquis. (3) Urinary tract infection Qualifiers: Urinary tract infection type: acute cystitis Hematuria presence: without hematuria Qualified Code(s): N30.00 - Acute cystitis without hematuria Is this a current diagnosis for this admission?: Yes Plan: Patient has completed about 5 days of treatment for Enterobacter and E. coli UTI initially with ceftriaxone then with cefepime. (4) Chronic systolic CHF (congestive heart failure) Is this a current diagnosis for this admission?: Yes Plan: Patient's medications indicate patient has a history of chronic systolic CHF likely ischemic cardiomyopathy. EF of 20% noted. Will gradually reintroduce Entresto once blood pressure starts to hold steady. Currently compensated. (5) Sepsis Qualifiers: Sepsis type: sepsis due to unspecified organism Sepsis acute organ dysfunction status: with acute organ dysfunction Severe sepsis acute organ dysfunction type: encephalopathy Severe sepsis shock status: with septic shock Qualified Code(s): A41.9 - Sepsis, unspecified organism; R65.21 - Severe sepsis with septic shock; G93.40 - Encephalopathy, unspecified Is this a current diagnosis for this admission?: Yes Plan: Off all pressors. Sepsis and septic shock due to mssa bacteremia have resolved. - Time Time Spent with patient: Less than 15 minutes
[2020-01-25] MEDS ORDERED: NAFCILLIN SODIUM INJ 2 GM VIAL IV SCH (14:00)
[2020-01-25] MEDS: NAFCILLIN SODIUM 2 GM in DEXTROSE 5%-WATER 100 ML IV SCH ×3 (15:13→21:02)
[2020-01-25] MEDS: MELATONIN 5 MG TABLET PO SCH (21:06)
[2020-01-25] MEDS: ATORVASTATIN CALCIUM 40 MG TABLET PO SCH (21:07)
[2020-01-25] MEDS: MIRTAZAPINE 15 MG TABLET PO SCH (21:07)
[2020-01-26] MEDS: NAFCILLIN SODIUM 2 GM in DEXTROSE 5%-WATER 100 ML IV SCH ×6 (02:46→22:00)
[2020-01-26] MEDS: APIXABAN 5 MG TABLET PO SCH ×2 (09:11→18:02)
[2020-01-26] MEDS: METOPROLOL TARTRATE 25 MG TABLET PO SCH (09:11)
[2020-01-26] MEDS: POTASSIUM CHLORIDE 10 MEQ TABLET.ER PO SCH (09:11)
[2020-01-26] MEDS: DIGOXIN 0.125 MG TABLET PO SCH (09:11)
[2020-01-26] MEDS: GABAPENTIN 300 MG CAPSULE PO SCH ×3 (09:11→18:02)
[2020-01-26] MEDS: POLYETHYLENE GLYCOL 3350 POWDER 17 GM/1 PACKET PO SCH (09:12)
[2020-01-26] MEDS: NYSTATIN TOPICAL POWDER 15 GM TP SCH ×2 (09:13→18:02)
[2020-01-26] MEDS: CARBAMAZEPINE 200 MG TABLET PO SCH ×2 (09:13→22:01)
[2020-01-26] MEDS: PYRIDOXINE HCL 50 MG TABLET PO SCH (09:13)
[2020-01-26] MEDS: ACETAMINOPHEN 325 MG TABLET PO PRN (09:32)
[2020-01-26] MEDS ORDERED: DIGOXIN INJ 0.5 MG/2 ML AMPULE IV ONE (10:00)
--- NOTE | 2020-01-26 10:35 | PDOC PROGRESS REPORT ---
Subjective Progress Note for:: 01/26/20 Subjective:: Patient states that she feels well. Denies any shortness of breath or chest pain. Denies noticing palpitations. Heart rates however are notably spikes up to the 140s and 150s often. However patient remains comfortable through episodes. Reason For Visit: SEPSIS WITH SHOCK Physical Exam Vital Signs: Temp Pulse Resp BP Pulse Ox 97.7 F 96 12 99/69 L 98 01/26/20 07:26 01/26/20 07:26 01/26/20 07:26 01/26/20 07:26 01/26/20 07:26 Intake & Output 01/25/20 01/26/20 01/27/20 06:59 06:59 06:59 Intake Total 322 973 Output Total 4150 2105 Balance -3828 -1132 Weight 58.6 kg 55.8 kg General appearance: PRESENT: no acute distress, cooperative, other - Blind Neck exam: ABSENT: JVD Respiratory exam: PRESENT: clear to auscultation olamide, unlabored. ABSENT: ta chypnea, wheezes Cardiovascular exam: PRESENT: irregular rhythm, +S1, +S2, tachycardia GI/Abdominal exam: PRESENT: soft. ABSENT: rebound, rigid, tenderness Neurological exam: PRESENT: alert, awake, oriented to person, oriented to place, oriented to time Results Laboratory Results: 01/25/20 04:50 01/25/20 04:50 01/23/20 11:25 Blood Blood Culture (PCR) - Final Staphylococcus Species 01/21/20 01/21/20 01/21/20 05:50 07:13 09:46 CK-MB (CK-2) 2.01 Troponin I Cancelled 0.024 0.013 Impressions: Chest X-Ray 01/21/20 05:56 IMPRESSION: NO ACUTE RADIOGRAPHIC FINDING IN THE CHEST. Assessment and Plan - Diagnosis (1) Bacteremia due to methicillin susceptible Staphylococcus aureus (MSSA) Is this a current diagnosis for this admission?: Yes Plan: Complicated MSSA bacteremia given persistence of bacteremia and presence of AICD leads. TTE did not show any evidence of endocarditis. Unfortunately KALLI cannot be performed at this facility at this time. Will empirically treat with at least 4 weeks of IV antibiotics given complicated bacteremia. Blood cultures repeated Will treat with nafcillin 2g Q4H (2) Chronic atrial fibrillation with RVR Is this a current diagnosis for this admission?: Yes Plan: Undetermined if paroxysmal versus persistent. Wean Cardizem drip today. Continue digoxin. Change Lopressor to Toprol-XL given cardiomyopathy. Will give another bolus of digoxin IV. Continue Eliquis. Monitor on telemetry. (3) Urinary tract infection Qualifiers: Urinary tract infection type: acute cystitis Hematuria presence: without hematuria Qualified Code(s): N30.00 - Acute cystitis without hematuria Is this a current diagnosis for this admission?: Yes Plan: Patient has completed about 5 days of treatment for Enterobacter and E. coli UTI initially with ceftriaxone then with cefepime. (4) Chronic systolic CHF (congestive heart failure) Is this a current diagnosis for this admission?: Yes Plan: Patient's medications indicate patient has a history of chronic systolic CHF likely ischemic cardiomyopathy. EF of 20% noted. Will gradually reintroduce Entresto once blood pressure starts to hold steady. Currently compensated. Toprol-XL. (5) Sepsis Qualifiers: Sepsis type: sepsis due to unspecified organism Sepsis acute organ dysfunction status: with acute organ dysfunction Severe sepsis acute organ dysfunction type: encephalopathy Severe sepsis shock status: with septic shock Qualified Code(s): A41.9 - Sepsis, unspecified organism; R65.21 - Severe sepsis with septic shock; G93.40 - Encephalopathy, unspecified Is this a current diagnosis for this admission?: Yes Plan: Off all pressors. Sepsis and septic shock due to mssa bacteremia have abated. We will continue to monitor blood pressures closely. - Time Time Spent with patient: 15-24 minutes
[2020-01-26] MEDS: METOPROLOL SUCCINATE 25 MG TAB.SR.24H PO SCH ×2 (11:11→22:01)
[2020-01-26] MEDS: MIRTAZAPINE 15 MG TABLET PO SCH (22:01)
[2020-01-26] MEDS: MELATONIN 5 MG TABLET PO SCH (22:01)
[2020-01-26] MEDS: ATORVASTATIN CALCIUM 40 MG TABLET PO SCH (22:01)
[2020-01-27] MEDS: NAFCILLIN SODIUM 2 GM in DEXTROSE 5%-WATER 100 ML IV SCH ×3 (01:21→09:59)
[2020-01-27] MEDS: GABAPENTIN 300 MG CAPSULE PO SCH ×3 (09:59→17:10)
[2020-01-27] MEDS: PYRIDOXINE HCL 50 MG TABLET PO SCH (09:59)
[2020-01-27] MEDS: APIXABAN 5 MG TABLET PO SCH ×2 (09:59→17:10)
[2020-01-27] MEDS: CARBAMAZEPINE 200 MG TABLET PO SCH ×2 (09:59→21:08)
[2020-01-27] MEDS: METOPROLOL SUCCINATE 25 MG TAB.SR.24H PO SCH ×2 (09:59→21:07)
[2020-01-27] MEDS: POTASSIUM CHLORIDE 10 MEQ TABLET.ER PO SCH (09:59)
[2020-01-27] MEDS: DIGOXIN 0.125 MG TABLET PO SCH (10:00)
[2020-01-27] MEDS: POLYETHYLENE GLYCOL 3350 POWDER 17 GM/1 PACKET PO SCH (10:00)
[2020-01-27] MEDS: NYSTATIN TOPICAL POWDER 15 GM TP SCH ×2 (10:01→17:11)
--- NOTE | 2020-01-27 12:16 | PDOC PROGRESS REPORT ---
Subjective Progress Note for:: 01/27/20 Subjective:: Patient is doing well today. Not having any palpitations. Denies any chest pain. Eating comfortably. Reason For Visit: SEPSIS WITH SHOCK Physical Exam Vital Signs: Temp Pulse Resp BP Pulse Ox 98.0 F 86 14 104/50 L 97 01/27/20 07:15 01/27/20 07:15 01/27/20 07:15 01/27/20 07:15 01/27/20 07:15 Intake & Output 01/26/20 01/27/20 01/28/20 06:59 06:59 06:59 Intake Total 973 358 Output Total 2105 725 Balance -1132 -367 Weight 55.8 kg 54.7 kg General appearance: PRESENT: no acute distress, cooperative Neck exam: ABSENT: JVD Respiratory exam: PRESENT: clear to auscultation olamide, unlabored. ABSENT: tachypnea, wheezes Cardiovascular exam: PRESENT: irregular rhythm, +S1, +S2. ABSENT: RRR GI/Abdominal exam: PRESENT: soft. ABSENT: rebound, rigid, tenderness Neurological exam: PRESENT: alert, awake, oriented to person, oriented to place, oriented to time Results Laboratory Results: 01/25/20 04:50 01/25/20 04:50 01/23/20 11:25 Blood Blood Culture (PCR) - Final Staphylococcus Species 01/23/20 11:25 Blood Blood Culture - Final Staphylococcus Capitis 01/21/20 13:05 Blood Blood Culture - Final NO GROWTH IN 5 DAYS 01/21/20 01/21/20 01/21/20 05:50 07:13 09:46 CK-MB (CK-2) 2.01 Troponin I Cancelled 0.024 0.013 Impressions: Chest X-Ray 01/21/20 05:56 IMPRESSION: NO ACUTE RADIOGRAPHIC FINDING IN THE CHEST. Assessment and Plan - Diagnosis (1) Bacteremia due to methicillin susceptible Staphylococcus aureus (MSSA) Is this a current diagnosis for this admission?: Yes Plan: Complicated MSSA bacteremia given persistence of bacteremia and presence of AICD leads. TTE did not show any evidence of endocarditis. Unfortunately KALLI cannot be performed at this facility at this time. Blood cultures repeated negative since 01/25/2020 Will change antibiotic regimen to cefazolin 2 g every 8 hours for ease in frequency of administration. Will treat for 4 weeks for complicated MSSA peace teremia with end date of 02/22/2020. PICC line to be placed in the morning. (2) Chronic atrial fibrillation with RVR Is this a current diagnosis for this admission?: Yes Plan: Undetermined if paroxysmal versus persistent. Continue digoxin, Toprol-XL [given cardiomyopathy] and Eliquis. Monitor on telemetry. Check digoxin level tonight. (3) Urinary tract infection Qualifiers: Urinary tract infection type: acute cystitis Hematuria presence: without hematuria Qualified Code(s): N30.00 - Acute cystitis without hematuria Is this a current diagnosis for this admission?: Yes Plan: Patient has completed about 5 days of treatment for Enterobacter and E. coli UTI initially with ceftriaxone then with cefepime. (4) Chronic systolic CHF (congestive heart failure) Is this a current diagnosis for this admission?: Yes Plan: Patient's medications indicate patient has a history of chronic systolic CHF likely ischemic cardiomyopathy. EF of 20% noted. Will gradually reintroduce Entresto once blood pressure allows. BPs are still soft. Currently compensated. Toprol-XL. (5) Sepsis Qualifiers: Sepsis type: sepsis due to unspecified organism Sepsis acute organ dysfunction status: with acute organ dysfunction Severe sepsis acute organ dysfunction type: encephalopathy Severe sepsis shock status: with septic shock Qualified Code(s): A41.9 - Sepsis, unspecified organism; R65.21 - Severe sepsis with septic shock; G93.40 - Encephalopathy, unspecified Is this a current diagnosis for this admission?: Yes Plan: Sepsis and septic shock due to mssa bacteremia have resolved. - Time Time Spent with patient: Less than 15 minutes
[2020-01-27] MEDS ORDERED: CEFAZOLIN 2 GM/D5W RTU 2 GM/50 ML RTUPB IV SCH (14:00)
[2020-01-27] MEDS: CEFAZOLIN SODIUM 2 GM in DEXTROSE 5%-WATER 100 ML IV SCH ×2 (14:47→21:06)
[2020-01-27] MEDS: MELATONIN 5 MG TABLET PO SCH (21:06)
[2020-01-27] MEDS: MIRTAZAPINE 15 MG TABLET PO SCH (21:07)
[2020-01-27] MEDS: ATORVASTATIN CALCIUM 40 MG TABLET PO SCH (21:07)
[2020-01-28] MEDS: ACETAMINOPHEN 325 MG TABLET PO PRN ×3 (01:56→18:23)
[2020-01-28] MEDS: CEFAZOLIN SODIUM 2 GM in DEXTROSE 5%-WATER 100 ML IV SCH ×3 (05:07→21:49)
[2020-01-28 05:42] LABS: INTERNATIONAL RATION (INR) 1.17
[2020-01-28 05:43] LABS: PARTIAL THROMBOPLASTIN TIME 34.5 SEC (23.5-35.8)
[2020-01-28 09:40] LABS: ANION GAP 8 (5-19); BLOOD UREA NITROGEN 9 mg/dL (7-20); CARBON DIOXIDE 29 mmol/L (22-30); CHLORIDE 96 mmol/L (98-107); GLUCOSE 103 mg/dL (75-110); POTASSIUM 3.8 mmol/L (3.6-5.0)
[2020-01-28] MEDS: GABAPENTIN 300 MG CAPSULE PO SCH ×3 (09:42→18:16)
[2020-01-28] MEDS: POTASSIUM CHLORIDE 10 MEQ TABLET.ER PO SCH (09:42)
[2020-01-28] MEDS: DIGOXIN 0.125 MG TABLET PO SCH (09:43)
[2020-01-28] MEDS: METOPROLOL SUCCINATE 25 MG TAB.SR.24H PO SCH ×2 (09:43→21:47)
[2020-01-28] MEDS: APIXABAN 5 MG TABLET PO SCH ×2 (09:44→18:16)
[2020-01-28] MEDS: CARBAMAZEPINE 200 MG TABLET PO SCH ×2 (09:45→21:48)
[2020-01-28] MEDS: POLYETHYLENE GLYCOL 3350 POWDER 17 GM/1 PACKET PO SCH (09:45)
[2020-01-28] MEDS: PYRIDOXINE HCL 50 MG TABLET PO SCH (09:46)
[2020-01-28] MEDS: NYSTATIN TOPICAL POWDER 15 GM TP SCH ×2 (09:55→18:16)
--- NOTE | 2020-01-28 11:21 | RADIOLOGY REPORT (SQ) ---
EXAM DESCRIPTION: PICC INSERTION IMAGES COMPLETED DATE/TIME: 01/28/2020 11:11 am REASON FOR STUDY: fpc IV antibiotics COMPARISON: None. FLUOROSCOPY TIME: 0.5 minutes 2 images saved to PACS. TECHNIQUE: Fluoroscopic and ultrasound guided PICC placement. LIMITATIONS: None. PROCEDURE: After written consent and assessment were obtained, the patient was brought into the fluo roscopy room and placed supine on the table. Ultrasound evaluation of potential access sites were per formed. After successfully identifying a patent right basilic vein, the right arm was prepped and erasto ped in a sterile fashion along with the ultrasound probe. The entry site was anesthetized with 1% lid ocaine. A 21 gauge 7 cm needle was advanced through the skin and into the basilic vein under live ult rasound guidance. An ultrasound image was saved to PACS confirming access site. A .018 guide wire w as then inserted through the needle and into the venous system. The needle was then removed and an 11 blade scalpel was used to make a 1cm skin incision. A 5 fr peel-away sheath was advanced over the w [place] and into the venous system. A measurement was then made using the existing wire and live fluorosc opic guidance. The wire was then removed and trimmed. The PICC was advanced through the peel-away she ath and into the venous system. The peel-away sheath was removed and the catheter was adhered to the patients arm with a stat lock. The catheter was then aspirated and flushed and a sterile bandage was placed over the access site. A fluoroscopic spot image was saved to PACS confirming the catheter tip within the superior vena cava. IMPRESSION: SUCCESSFUL PLACEMENT OF A 5 FR DUAL LUMEN 30 CM PICC IN THE RIGHT BASILIC VEIN. COMMENT: Patient medication list reviewed: Yes- Quality ID# [id number]:Eligible professional attests to doc umenting in the medical record they obtained, updated, or reviewed the patient's current medications. . Quality ID 145: Final reports for procedures using fluoroscopy that document radiation exposure perla arminda, or exposure time and number of fluorographic images (if radiation exposure indices are not avail able) Quality ID #76: The patient was prepped and draped using maximum sterile barrier technique including cap, mask, sterile gown, sterile gloves, a large sterile sheet, hand hygiene, and 2% Chlorhexidine fo r cutaneous antisepsis. When ultrasound is used, sterile ultrasound techniques are followed requiring sterile gel and sterile probes. TECHNICAL DOCUMENTATION: JOB ID: [id number] 2010 [employer]- All Rights Reserved rev-03/02 Reading location - IP/workstation name: [email or web address]
--- NOTE | 2020-01-28 13:20 | PDOC PROGRESS REPORT ---
Subjective Progress Note for:: 01/28/20 Subjective:: Patient is doing well. She has no complaints. She is eating and drinking okay. PICC line placed today. Reason For Visit: SEPSIS WITH SHOCK Physical Exam Vital Signs: Temp Pulse Resp BP Pulse Ox 98.5 F 67 14 126/64 H 92 01/27/20 15:32 01/28/20 07:00 01/27/20 15:32 01/27/20 15:32 01/27/20 15:32 Intake & Output 01/27/20 01/28/20 01/29/20 06:59 06:59 06:59 Intake Total 358 575 Output Total 725 2425 Balance -367 -1850 Weight 54.7 kg 54.7 kg General appearance: PRESENT: no acute distress, cooperative Respiratory exam: ABSENT: tachypnea Neurological exam: PRESENT: alert, awake Results Laboratory Results: 01/25/20 04:50 01/28/20 04:51 01/28/20 04:51 Sodium 133.4 L Potassium 3.8 Chloride 96 L Carbon Dioxide 29 Anion Gap 8 BUN 9 Creatinine 0.34 L Est GFR ( Amer) > 60 Glucose 103 Calcium 9.0 Magnesium 2.0 01/23/20 07:06 Blood Blood Culture - Final NO GROWTH IN 5 DAYS 01/23/20 11:25 Blood Blood Culture (PCR) - Final Staphylococcus Species 01/23/20 11:25 Blood Blood Culture - Final Staphylococcus Capitis 01/21/20 01/21/20 01/21/20 05:50 07:13 09:46 CK-MB (CK-2) 2.01 Troponin I Cancelled 0.024 0.013 Impressions: Chest X-Ray 01/21/20 05:56 IMPRESSION: NO ACUTE RADIOGRAPHIC FINDING IN THE CHEST. PICC Line Insertion 01/28/20 07:00 IMPRESSION: SUCCESSFUL PLACEMENT OF A 5 FR DUAL LUMEN 30 CM PICC IN THE RIGHT BASILIC VEIN. Assessment and Plan - Diagnosis (1) Bacteremia due to methicillin susceptible Staphylococcus aureus (MSSA) Is this a current diagnosis for this admission?: Yes Plan: Complicated MSSA bacteremia given persistence of bacteremia and presence of AICD leads. TTE did not show any evidence of endocarditis. Unfortunately KALLI cannot be performed at this facility at this time. Blood cultures repeated negative since 01/25/2020 Cefazolin 2 g every 8 hours for ease in frequency of administration. Will treat for 4 weeks for complicated MSSA bacteremia EOT of 02/22/2020. PICC line to be placed. Awaiting repeat coronavirus test by [facility] for discharge. (2) Chronic atrial fibrillation with RVR Is this a current diagnosis for this admission?: Yes Plan: Undetermined if paroxysmal versus persistent. Continue digoxin and Eliquis. Digoxin level adequate. Toprol-XL [given cardiomyopathy] increased from 25 to 50 Q12. Heart rate acceptable. Monitor blood pressures. (3) Urinary tract infection Qualifiers: Urinary tract infection type: acute cystitis Hematuria presence: without hematuria Qualified Code(s): N30.00 - Acute cystitis without hematuria Is this a current diagnosis for this admission?: Yes Plan: Patient has completed about 5 days of treatment for Enterobacter and E. coli UTI initially with ceftriaxone then with cefepime. (4) Chronic systolic CHF (congestive heart failure) Is this a current diagnosis for this admission?: Yes Plan: Patient's medications indicate patient has a history of chronic systolic CHF likely ischemic cardiomyopathy. EF of 20% noted. Blood pressures are soft. Will gradually reintroduce Entresto once blood pressure allows-may need to be done outpatient. Currently compensated. Toprol-XL. (5) Sepsis Qualifiers: Sepsis type: sepsis due to unspecified organism Sepsis acute organ dysfunction status: with acute organ dysfunction Severe sepsis acute organ dysfunction type: encephalopathy Severe sepsis shock status: with septic shock Qualified Code(s): A41.9 - Sepsis, unspecified organism; R65.21 - Severe sepsis with septic shock; G93.40 - Encephalopathy, unspecified Is this a current diagnosis for this admission?: Yes Plan: Sepsis and septic shock due to mssa bacteremia have resolved. - Time Time Spent with patient: Less than 15 minutes
[2020-01-28] MEDS ORDERED: NORMAL SALINE 10 ML SDV (AFTER EACH USE) IV PRN (13:30)
[2020-01-28] MEDS ORDERED: METOPROLOL SUCCINATE 25 MG TAB.SR.24H PO ONE (14:00)
[2020-01-28] MEDS ORDERED: NORMAL SALINE 1000 ML 1,000 ML IV PRN (15:30)
[2020-01-28] MEDS: MIRTAZAPINE 15 MG TABLET PO SCH (21:47)
[2020-01-28] MEDS: ATORVASTATIN CALCIUM 40 MG TABLET PO SCH (21:47)
[2020-01-28] MEDS: MELATONIN 5 MG TABLET PO SCH (21:48)
[2020-01-28] MEDS: NORMAL SALINE 10 ML SDV (SCHEDULED) IV SCH (21:49)
[2020-01-28] MEDS ORDERED: METOPROLOL SUCCINATE 25 MG TAB.SR.24H PO SCH (22:00)
[2020-01-29] MEDS: CEFAZOLIN SODIUM 2 GM in DEXTROSE 5%-WATER 100 ML IV SCH ×3 (05:35→23:55)
[2020-01-29] MEDS: CARBAMAZEPINE 200 MG TABLET PO SCH ×2 (09:19→23:54)
[2020-01-29] MEDS: METOPROLOL SUCCINATE 25 MG TAB.SR.24H PO SCH ×2 (09:19→23:55)
[2020-01-29] MEDS: GABAPENTIN 300 MG CAPSULE PO SCH ×3 (09:19→17:42)
[2020-01-29] MEDS: POTASSIUM CHLORIDE 10 MEQ TABLET.ER PO SCH (09:19)
[2020-01-29] MEDS: PYRIDOXINE HCL 50 MG TABLET PO SCH (09:19)
[2020-01-29] MEDS: POLYETHYLENE GLYCOL 3350 POWDER 17 GM/1 PACKET PO SCH (09:19)
[2020-01-29] MEDS: APIXABAN 5 MG TABLET PO SCH ×2 (09:19→17:42)
[2020-01-29] MEDS: DIGOXIN 0.125 MG TABLET PO SCH (09:19)
[2020-01-29] MEDS: NORMAL SALINE 10 ML SDV (SCHEDULED) IV SCH ×2 (09:20→23:56)
[2020-01-29] MEDS: ACETAMINOPHEN 325 MG TABLET PO PRN ×3 (09:28→20:02)
--- NOTE | 2020-01-29 16:48 | PDOC PROGRESS REPORT ---
Subjective Progress Note for:: 01/29/20 Subjective:: No adverse events overnight. No new complaints. Vital signs been stable. She been eating and drinking without difficulty. She said that she could tolerate regular liquids and asked if she can have that instead of thickened liquids. Reason For Visit: SEPSIS WITH SHOCK Physical Exam Vital Signs: Temp Pulse Resp BP Pulse Ox 97.9 F 74 18 133/60 H 95 01/29/20 11:11 01/29/20 14:00 01/29/20 11:11 01/29/20 11:11 01/29/20 11:11 Intake & Output 01/28/20 01/29/20 01/30/20 06:59 06:59 06:59 Intake Total 575 1808 100 Output Total 2425 1775 700 Balance -1850 33 -600 Weight 54.7 kg 52.2 kg General appearance: PRESENT: no acute distress, cooperative, disheveled Teeth exam: PRESENT: poor dentation Respiratory exam: PRESENT: clear to auscultation olamide, symmetrical, unlabored. ABSENT: accessory muscle use, chest wall tenderness, prolonged expiratory phas, retraction, rhonchi, tachypnea, wheezes Cardiovascular exam: PRESENT: RRR, +S1, +S2 Pulses: PRESENT: normal carotid pulses Vascular exam: PRESENT: normal capillary refill GI/Abdominal exam: PRESENT: normal bowel sounds, soft. ABSENT: distended, guarding, rebound, tenderness Neurological exam: PRESENT: alert, awake, oriented to person, oriented to place, oriented to situation Psychiatric exam: PRESENT: appropriate affect, normal mood Skin exam: PRESENT: dry, warm Results Laboratory Results: 01/25/20 04:50 01/28/20 04:51 01/21/20 01/21/20 01/21/20 05:50 07:13 09:46 CK-MB (CK-2) 2.01 Troponin I Cancelled 0.024 0.013 Impressions: Chest X-Ray 01/21/20 05:56 IMPRESSION: NO ACUTE RADIOGRAPHIC FINDING IN THE CHEST. PICC Line Insertion 01/28/20 07:00 IMPRESSION: SUCCESSFUL PLACEMENT OF A 5 FR DUAL LUMEN 30 CM PICC IN THE RIGHT BASILIC VEIN. Assessment and Plan - Diagnosis (1) Acute metabolic encephalopathy Is this a current diagnosis for this admission?: Yes Plan: Resolved (2) Bacteremia due to methicillin susceptible Staphylococcus aureus (MSSA) Is this a current diagnosis for this admission?: Yes Plan: She is on Ancef with a stop date of February 22, 2020 (3) Chronic atrial fibrillation with RVR Is this a current diagnosis for this admission?: Yes Plan: Rate controlled, currently in a sinus rhythm (4) Chronic systolic CHF (congestive heart failure) Is this a current diagnosis for this admission?: Yes Plan: Not acutely exacerbated, continue home medications (5) Suspected COVID-19 virus infection Is this a current diagnosis for this admission?: Yes Plan: Ruled out, testing negative - Time Time Spent with patient: 15-24 minutes
[2020-01-29] MEDS: MIRTAZAPINE 15 MG TABLET PO SCH (23:54)
[2020-01-29] MEDS: ATORVASTATIN CALCIUM 40 MG TABLET PO SCH (23:55)
[2020-01-29] MEDS: MELATONIN 5 MG TABLET PO SCH (23:55)
[2020-01-30] MEDS: CEFAZOLIN SODIUM 2 GM in DEXTROSE 5%-WATER 100 ML IV SCH ×2 (05:20→13:46)
[2020-01-30] MEDS: ACETAMINOPHEN 325 MG TABLET PO PRN ×2 (05:21→10:21)
[2020-01-30] MEDS: POLYETHYLENE GLYCOL 3350 POWDER 17 GM/1 PACKET PO SCH (10:15)
[2020-01-30] MEDS: APIXABAN 5 MG TABLET PO SCH (10:21)
[2020-01-30] MEDS: METOPROLOL SUCCINATE 25 MG TAB.SR.24H PO SCH (10:22)
[2020-01-30] MEDS: POTASSIUM CHLORIDE 10 MEQ TABLET.ER PO SCH (10:22)
[2020-01-30] MEDS: PYRIDOXINE HCL 50 MG TABLET PO SCH (10:22)
[2020-01-30] MEDS: CARBAMAZEPINE 200 MG TABLET PO SCH (10:22)
[2020-01-30] MEDS: DIGOXIN 0.125 MG TABLET PO SCH (10:22)
[2020-01-30] MEDS: GABAPENTIN 300 MG CAPSULE PO SCH ×2 (10:22→13:46)
[2020-01-30] MEDS: NORMAL SALINE 10 ML SDV (SCHEDULED) IV SCH (10:23)
--- NOTE | 2020-01-30 13:35 | PDOC TRANSFER SUMMARY ---
Impression - Admit/DC Date/PCP Admission Date/Primary Care Provider: 01/21/20 07:48 ALLIE PEARSON MD Discharge Date: 01/30/20 - Discharge Diagnosis (1) Acute metabolic encephalopathy Is this a current diagnosis for this admission?: Yes (2) Bacteremia due to methicillin susceptible Staphylococcus aureus (MSSA) Is this a current diagnosis for this admission?: Yes (3) Chronic atrial fibrillation with RVR Is this a current diagnosis for this admission?: Yes (4) Chronic systolic CHF (congestive heart failure) Is this a current diagnosis for this admission?: Yes (5) Suspected COVID-19 virus infection Is this a current diagnosis for this admission?: Yes (6) Urinary tract infection Is this a current diagnosis for this admission?: Yes - Additional Information Resuscitation Status: Full Code Discharge Diet: Cardiac Discharge Activity: Balance Activity w/Rest, Supervised Activity Referrals: ALLIE PEARSON MD [Primary Care Provider] - Follow up as needed Prescriptions: Sacubitril/Valsartan [Entresto 24 mg/26 mg Tablet] 1 tab PO BID #60 tablet Home Medications: Atorvastatin Calcium 80 mg PO QHS 10/25/14 Gabapentin [Neurontin 300 mg Capsule] 600 mg PO TID 10/25/14 Polyethylene Glycol 3350 [Miralax Powder 17 gm/Packet] 17 gm PO DAILY 10/25/14 Potassium Chloride [K-Tab ER] 20 meq PO DAILY 02/22/15 Pyridoxine HCl [Vitamin B-6] 50 mg PO DAILY 02/22/15 Acetaminophen [Tylenol] 650 mg PO Q4 01/21/20 Apixaban [Eliquis 5 mg Tablet] 5 mg PO BID 01/21/20 Carbamazepine [Tegretol 200 mg Tablet] 200 mg PO BID 01/21/20 Fluvoxamine 50mg 50 mg PO QHS 01/21/20 Ipratropium [place] [Atrovent 0.06% Nasal [place]] 2 spray NASL QID PRN 01/21/20 Melatonin [Melatonin 5 mg Tablet] 10 mg PO QHS 01/21/20 Mirtazapine [Remeron 15 mg Tablet] 30 mg PO DAILY 01/21/20 Multivitamin/Iron/Folic Acid [Centrum Complete Multivit Tab] 1 each PO 01/21/20 Nystatin [Mycostatin Topical Powder 15 gm] 1 applic TP BID 01/21/20 Cefazolin Sodium [Ancef Inj 1 gm Vial] 2 gm IV Q8 vial 01/30/20 Digoxin [Lanoxin 0.125 mg Tablet] 0.125 mg PO DAILY tablet 01/30/20 Metoprolol Succinate [Toprol Xl 25 mg Tab.sr] 25 mg PO Q12 tab.sr.24h 01/30/20 Sacubitril/Valsartan [Entresto 24 mg/26 mg Tablet] 1 tab PO BID #60 tablet 01/30/20 History of Present Illiness History of Present Illness: CRISTINE WATERMAN is a 65-year-old white female who is domiciled in a nursing facility presented with fever from LTAC, located within [facility]. Patient has lived there for sometime (2013)secondary to inability to care for herself with blindness and amputee. Nursing reported fever of 101 despite acetaminophen. Went to 102. Patient is lethargic and difficult to obtain history but there is endorsement of dry cough and significant body aches. Poor historian. She feels weak and malaised when prompted. Has compulsive skin picking disorder. Had defibrillator placed 2 weeks ago. Nurses reported some slight bleeding. Patient presents with fever from [facility]. Patient is not a good historian so history is somewhat suspect. Nurses note no positive cases of influenza nor COVID From a respiratory standpoint we will attempt to rule out influenza although screening is extremely insensitive. We will also rule out CO VID 19 Low threshold for intubation should her symptoms worsen. Perform bedside ultrasound to evaluate extent of lung disease chest x-ray shows minimal interstitial changes. The most noted at the bases which is common for Covid. Of note her neutrophil lymphocyte ratio which helps with prognosis and disposition is 9. Should be noted that a ratio greater than 3.13 is indicative of worsened prognosis. From an infectious disease standpoint have placed the patient on Rocephin and will monitor cultures of urine and blood. If her hypotension does not resolve will place her on broad-spectrum antibiotics as well as 1 dose of concentrated gentamicin. Procalcitonin has been ordered however it may not return in a timely fashion. We will follow other clinical parameters as well. As noted above her NLR significantly elevated. He also has bandemia and no lymphocytes. Highly suggestive of Covid. From a cardiac standpoint we will perform critical care ultrasound and evaluate ejection fraction while we do lung ultrasound as well. She is on levo fed and has been on an TIA inhibitor. Vasopressin may be needed to offset the TIA inhibitor effect of vasopressin receptors. She has an implantable defibrillator in which may suggest a low ejection fraction we will try to obtain information. From endocrine standpoint we will check a cortisol level and start her on Solu-Cortef if levels are low. Check TSH and follow glucose. From renal standpoint she does have hyponatremia and will check for the possibility of SIADH which may be related to some of her medications. Patient will need to be admitted to the ICU secondary to hypotension and sepsis Hospital Course Hospital Course: She ruled out for coronavirus infection. She initially had to deal with septic shock. She was on pressors for a while but was able to come off of them. She was found to have a polymicrobial UTI and has completed treatment for that. In the interim, she developed a Staphylococcus aureus bacteremia. This was thought to have gained entry from the skin. Her echocardiogram did not show any evidence of vegetation but it was a transthoracic echocardiogram. Due to the current desire to defer elective procedures, it was decided to treat her with 4 weeks of IV antibiotics and then to repeat cultures. Her stop date on her antibiotics is February 22, 2020. The echocardiogram confirmed her low ejection fraction of 20%. She also had increased right ventricular systolic pressure of 46 mmHg. She also had difficult to control atrial fibrillation. Apparently this is a chronic issue for her and she is being set up to get a pacemaker to go along with her defibrillator. We were able to get her under control with a combination of digoxin and metoprolol. Her Lopressor was switched to Toprol-XL because of her cardiomyopathy. Her blood pressures were low and so her Entresto was held but it has been restarted, just at a substantially lower dose to accommodate her blood pressure. Fortunately the bacteremia showed an MSSA which can be treated with Ancef. She has a PICC line in place. She will keep her follow-up visit with Dr. Taylor in [place]. Her labs and examination were reassuring she was discharged in stable condition. Physical Exam Vital Signs: Temp Pulse Resp BP Pulse Ox 97.9 F 67 16 109/60 98 01/30/20 07:55 01/30/20 07:55 01/30/20 07:55 01/30/20 07:55 01/30/20 07:55 Intake & Output 01/29/20 01/30/20 01/31/20 06:59 06:59 06:59 Intake Total 1808 600 Output Total 1775 1525 Balance 33 -925 Weight 52.2 kg 51.2 kg General appearance: PRESENT: no acute distress, cooperative, disheveled Teeth exam: PRESENT: poor dentation Respiratory exam: PRESENT: clear to auscultation olamide, symmetrical, unlabored. ABSENT: accessory muscle use, chest wall tenderness, prolonged expiratory phas, retraction, rhonchi, tachypnea, wheezes Cardiovascular exam: PRESENT: RRR, +S1, +S2 Pulses: PRESENT: normal carotid pulses Vascular exam: PRESENT: normal capillary refill GI/Abdominal exam: PRESENT: normal bowel sounds, soft. ABSENT: distended, guarding, rebound, tenderness Neurological exam: PRESENT: alert, awake, oriented to person, oriented to place, oriented to situation Psychiatric exam: PRESENT: appropriate affect, normal mood Skin exam: PRESENT: dry, warm Results Laboratory Results: WBC 3.9 10^3/uL (4.0-10.5) L 01/25/20 04:50 RBC 3.32 10^6/uL (3.72-5.28) L 01/25/20 04:50 Hgb 10.6 g/dL (12.0-15.5) L 01/25/20 04:50 Hct 30.6 % (36.0-47.0) L 01/25/20 04:50 MCV 92 fl (80-97) 01/25/20 04:50 MCH 31.9 pg (27.0-33.4) 01/25/20 04:50 MCHC 34.7 g/dL (32.0-36.0) 01/25/20 04:50 RDW 14.2 % (11.5-14.0) H 01/25/20 04:50 Plt Count 131 10^3/uL (150-450) L 01/25/20 04:50 Lymph % (Auto) Not Reportable 01/25/20 04:50 Louisa % (Auto) Not Reportable 01/25/20 04:50 Eos % (Auto) Not Reportable 01/25/20 04:50 Baso % (Auto) Not Reportable 01/25/20 04:50 Absolute Neuts (auto) Not Reportable 01/25/20 04:50 Absolute Lymphs (auto) Not Reportable 01/25/20 04:50 Absolute Monos (auto) Not Reportable 01/25/20 04:50 Absolute Eos (auto) Not Reportable 01/25/20 04:50 Absolute Basos (auto) Not Reportable 01/25/20 04:50 Total Counted 100 01/25/20 04:50 Seg Neutrophils % Not Reportable 01/25/20 04:50 Seg Neuts % (Manual) 60 % (42-78) 01/25/20 04:50 Band Neutrophils % 3 % (3-5) 01/24/20 06:07 Lymphocytes % (Manual) 11 % (13-45) L 01/25/20 04:50 Atypical Lymphs % 2 % (0) 01/25/20 04:50 Monocytes % (Manual) 22 % (3-13) H 01/25/20 04:50 Eosinophils % (Manual) 5 % (0-6) 01/25/20 04:50 Basophils % (Manual) 0 % (0-2) 01/25/20 04:50 Abs Neuts (Manual) 2.3 10^3/uL (1.7-8.2) 01/25/20 04:50 Abs Lymphs (Manual) 0.5 10^3/uL (0.5-4.7) 01/25/20 04:50 Abs Monocytes (Manual) 0.9 10^3/uL (0.1-1.4) 01/25/20 04:50 Absolute Eos (Manual) 0.2 10^3/uL (0.0-0.6) 01/25/20 04:50 Abs Basophils (Manual) 0.0 10^3/uL (0.0-0.2) 01/25/20 04:50 Toxic Granulation SLIGHT 01/24/20 06:07 Toxic Vacuolation PRESENT 01/25/20 04:50 Platelet Comment DECREASED 01/25/20 04:50 Poikilocytosis SLIGHT 01/24/20 06:07 Anisocytosis SLIGHT 01/25/20 04:50 Tear Drop Cells SLIGHT 01/24/20 06:07 Ovalocytes SLIGHT 01/24/20 06:07 Marcello Cells 1+ 01/24/20 06:07 RBC Morph Comment NORMO-CYTIC/CHROMIC 01/22/20 03:26 PT 15.0 SEC (11.4-15.4) 01/28/20 04:51 INR 1.17 01/28/20 04:51 APTT 34.5 SEC (23.5-35.8) 01/28/20 04:51 D-Dimer 1.57 ug/mL (0.00-0.50) H 01/21/20 07:13 Carbonic Acid 1.10 mmol/L (1.05-1.35) 01/21/20 09:46 HCO3/H2CO3 Ratio 14:1 01/21/20 09:46 ABG pH 7.25 (7.35-7.45) L 01/21/20 09:46 ABG pCO2 36.7 mmHg (35-45) 01/21/20 09:46 ABG pO2 124.2 mmHg (80-100) H 01/21/20 09:46 ABG HCO3 15.8 mmol/L (20-24) L 01/21/20 09:46 ABG Total CO2 17.0 mmol/L (21-25) L 01/21/20 09:46 ABG O2 Saturation 98.0 % (94-98) 01/21/20 09:46 ABG Base Excess -10.5 mmol/L 01/21/20 09:46 VBG pH 7.31 (7.30-7.42) 01/21/20 05:55 VBG pCO2 31.0 mmHg (35-63) L 01/21/20 05:55 VBG HCO3 15.3 mmol/L (20-32) L 01/21/20 05:55 VBG Base Excess -9.7 mmol/L 01/21/20 05:55 FiO2 ROOM AIR 01/21/20 09:46 Sodium 133.4 mmol/L (137-145) L 01/28/20 04:51 Potassium 3.8 mmol/L (3.6-5.0) 01/28/20 04:51 Chloride 96 mmol/L (98-107) L 01/28/20 04:51 Carbon Dioxide 29 mmol/L (22-30) 01/28/20 04:51 Anion Gap 8 (5-19) 01/28/20 04:51 BUN 9 mg/dL (7-20) 01/28/20 04:51 Creatinine 0.34 mg/dL (0.52-1.25) L 01/28/20 04:51 Est GFR ( Amer) > 60 (>60) 01/28/20 04:51 Est GFR (Non-Af Amer) Cancelled 01/21/20 05:50 Est GFR (MDRD) Non-Af > 60 (>60) 01/28/20 04:51 Glucose 103 mg/dL (75-110) 01/28/20 04:51 POC Glucose 95 mg/dL (70-110) 01/27/20 11:22 Serum Osmolality 265 mOsm/kg (275-301) L 01/21/20 13:05 Lactic Acid 0.9 mmol/L (0.7-2.1) 01/21/20 16:30 Calcium 9.0 mg/dL (8.4-10.2) 01/28/20 04:51 Phosphorus 2.2 mg/dL (2.5-4.5) L 01/25/20 04:50 Magnesium 2.0 mg/dL (1.6-2.3) 01/28/20 04:51 Ferritin 556.00 ng/mL (11.1-264.0) H 01/21/20 13:05 Total Bilirubin 0.6 mg/dL (0.2-1.3) 01/21/20 07:13 Direct Bilirubin 0.2 mg/dL (0.0-0.4) 01/21/20 07:13 Neonat Total Bilirubin Not Reportable 01/21/20 07:13 Neonat Direct Bilirubin Not Reportable 01/21/20 07:13 Neonat Indirect Bili Not Reportable 01/21/20 07:13 AST 59 U/L (14-36) H 01/21/20 07:13 ALT 27 U/L (<35) 01/21/20 07:13 Alkaline Phosphatase 113 U/L (38-126) 01/21/20 07:13 Ammonia < 8.7 umol/L (9-33) L 01/21/20 09:46 CK-MB (CK-2) 2.01 ng/mL (<4.55) 01/21/20 09:46 Troponin I 0.013 ng/mL 01/21/20 09:46 C-React Prot High Sens > 15 mg/L (0.0-3.0) H 01/21/20 13:05 Total Protein 5.3 g/dL (6.3-8.2) L 01/21/20 07:13 Albumin 2.6 g/dL (3.5-5.0) L 01/21/20 07:13 EGFR Cancelled 01/21/20 05:50 Procalcitonin 0.37 ng/mL (0.00-0.08) H 01/21/20 13:05 TSH 0.83 uIU/mL (0.47-4.68) 01/21/20 07:13 Urine Color MURPHY 01/21/20 06:19 Urine Appearance CLOUDY 01/21/20 06:19 Urine pH 6.0 (5.0-9.0) 01/21/20 06:19 Ur Specific [place] 1.024 01/21/20 13:05 Urine Protein 30 mg/dL (NEGATIVE) H 01/21/20 06:19 Urine Glucose (UA) NEGATIVE mg/dL (NEGATIVE) 01/21/20 06:19 Urine Ketones TRACE mg/dL (NEGATIVE) H 01/21/20 06:19 Urine Blood MODERATE (NEGATIVE) H 01/21/20 06:19 Urine Nitrite (Reflex) NEGATIVE (NEGATIVE) 01/21/20 06:19 Urine Bilirubin NEGATIVE (NEGATIVE) 01/21/20 06:19 Urine Urobilinogen 2.0 mg/dL (<2.0) H 01/21/20 06:19 Leukocyte Esterase Rfl LARGE (NEGATIVE) H 01/21/20 06:19 Urine RBC (Auto) 20 /HPF 01/21/20 06:19 U Hyaline Cast (Auto) 3 /LPF 01/21/20 06:19 Urine Bacteria (Auto) TRACE /HPF 01/21/20 06:19 Urine WBC (Reflex) > 182 /HPF 01/21/20 06:19 Urine WBC Clumps FEW /HPF 01/21/20 06:19 Squamous Epi Cells Auto 4 /HPF 01/21/20 06:19 U Non-Squamous Epis Auto 5 /HPF 01/21/20 06:19 Urine Mucus (Auto) OCC /LPF 01/21/20 06:19 Urine Osmolality 497 mOsm/kg (300-900) 01/21/20 13:05 Urine Creatinine 67.6 mg/dL (15-278) 01/21/20 13:05 Urine Sodium 59 mmol/L (30-90) 01/21/20 13:05 Urine Potassium 87.5 mmol/L (22-164) 01/21/20 13:05 Urine Ascorbic Acid NEGATIVE (NEGATIVE) 01/21/20 06:19 Digoxin 1.20 ng/mL (0.8-2.0) 01/27/20 22:12 Carbamazepine 5.7 ug/mL (4.0-12.0) 01/21/20 13:40 COVID-19 Source NASOPHARYNGEAL 01/21/20 08:52 COVID-19 (SARAH) NOT DETECTED 01/21/20 08:52 Influenza A (Rapid) NEGATIVE (NEGATIVE) 01/21/20 07:45 Influenza B (Rapid) NEGATIVE (NEGATIVE) 01/21/20 07:45 01/21/20 01/21/20 01/21/20 05:50 07:13 09:46 CK-MB (CK-2) 2.01 Troponin I Cancelled 0.024 0.013 Impressions: Chest X-Ray 01/21/20 05:56 IMPRESSION: NO ACUTE RADIOGRAPHIC FINDING IN THE CHEST. PICC Line Insertion 01/28/20 07:00 IMPRESSION: SUCCESSFUL PLACEMENT OF A 5 FR DUAL LUMEN 30 CM PICC IN THE RIGHT BASILIC VEIN. Plan Time Spent: Greater than 30 Minutes Stroke Is this a Stroke Patient?: No Acute Heart Failure - Is this a Heart Failure Patient?: Yes Documentation of LVEF assessment?: Yes LVEF < 40%?: Yes-if yes answer questions a through e a) Discharged on ACEI?: N/A Discharged on ARNI b) Discharges on ARB?: N/A-Discharged on ARNI c) Discharged on ARNI?: Yes d) Discharged on evidence-based Beta nash(carvedilol, sustained release metoprolol succinate, or bisoprolol)?: Yes e) For LVEF <35%, discharged on Aldosterone antagonist?: No-document contraincations Reason(s) not discharged on Aldosterone antagonist for LVEF < 35%: Other - hypotension 3. Anticoagulant therapy for permanect/persistent/paraoxysmal Afib or Aflutter: Yes Follow-up Appointment scheduled within 7 days?: Yes
[2020-01-30 15:33] VITALS: BP 120/78
== END 2020-01-30 16:40 | DRG 871 ==
LOC: ER 05:47 → EH 07:48 → ICU 10:35 → 3S 01-25 00:35
PROVIDERS: ADMIT Internal Medicine; ATTEND Family Medicine
PROC: 06HM33Z Insertion of Infusion Device into Right Femoral Vein, Percutaneous Approach (ICD-10-PCS; 2020-01-21)
PROC: B54BZZA Ultrasonography of Right Lower Extremity Veins, Guidance (ICD-10-PCS; 2020-01-21)
PROC: 04JY3ZZ Inspection of Lower Artery, Percutaneous Approach (ICD-10-PCS; 2020-01-21)
PROC: B24BZZZ Ultrasonography of Heart with Aorta (ICD-10-PCS; 2020-01-23)
PROC: 02HV33Z Insertion of Infusion Device into Superior Vena Cava, Percutaneous Approach (ICD-10-PCS; principal; 2020-01-28)
PROC: B548ZZA Ultrasonography of Superior Vena Cava, Guidance (ICD-10-PCS; 2020-01-28)
PROC: B518ZZA Fluoroscopy of Superior Vena Cava, Guidance (ICD-10-PCS; 2020-01-28)
DX: A41.01 Sepsis due to Methicillin susceptible Staphylococcus aureus (principal); G93.41 Metabolic encephalopathy; R65.21 Severe sepsis with septic shock; N30.00 Acute cystitis without hematuria; E22.2 Syndrome of inappropriate secretion of antidiuretic hormone; I50.22 Chronic systolic (congestive) heart failure; I48.20 Chronic atrial fibrillation, unspecified; F32.9 Major depressive disorder, single episode, unspecified; I73.9 Peripheral vascular disease, unspecified; F42.4 Excoriation (skin-picking) disorder; H54.7 Unspecified visual loss; I11.0 Hypertensive heart disease with heart failure; I25.10 Atherosclerotic heart disease of native coronary artery without angina pectoris; E78.5 Hyperlipidemia, unspecified; H26.9 Unspecified cataract; I87.2 Venous insufficiency (chronic) (peripheral); I51.3 Intracardiac thrombosis, not elsewhere classified; Z03.818 Encounter for observation for suspected exposure to other biological agents ruled out; B96.20 Unspecified Escherichia coli [E. coli] as the cause of diseases classified elsewhere; B95.2 Enterococcus as the cause of diseases classified elsewhere; R47.02 Dysphasia; E87.6 Hypokalemia; G40.909 Epilepsy, unspecified, not intractable, without status epilepticus; Z89.512 Acquired absence of left leg below knee; Z86.73 Personal history of transient ischemic attack (TIA), and cerebral infarction without residual deficits; Z95.810 Presence of automatic (implantable) cardiac defibrillator; Z79.899 Other long term (current) drug therapy; Z87.891 Personal history of nicotine dependence; Z79.01 Long term (current) use of anticoagulants
CPT/HCPCS: 36415; 36556; 36573; 51702; 71045; 80048; 80053; 80156; 80162; 81001; 81002; 82140; 82553; 82570; 82728; 82803; 82962; 83605; 83735; 83930; 83935; 84100; 84133; 84145; 84300; 84443; 84484; 85025; 85379; 85610; 85730; 86141; 87040; 87077; 87086; 87088; 87150; 87186; 87635; 87804; 93005; 93010; 93306; 96361; 96365; 96375; 99291; 99292; J0690; J0692; J0696; J1160; J1642; J1650; J2370; J2543; J3370; J3475; J3480; J3490; J7030; J7060; J7120; P9041; P9047; S0032

== ENCOUNTER 2020-03-10 12:54 | Emergency (ER) | payer MEDICARE, MEDICAID ==
[2020-03-10] MEDS ORDERED: METHYLPREDNISOLONE INJ 125 MG/2 ML SDV IV ONE (13:04)
[2020-03-10] MEDS ORDERED: RACEPINEPHRINE HCL 2.25% NEB 0.5 ML AMPUL NEB ONE (13:04)
[2020-03-10 13:18] LABS: HEMATOCRIT 33.4 % (36.0-47.0); HEMOGLOBIN 11.6 g/dL (12.0-15.5); MEAN CORPUSCULAR HEMOGLOBIN 34.1 pg (27.0-33.4); MEAN CORPUSCULAR HGB CONC 34.7 g/dL (32.0-36.0); MEAN CORPUSCULAR VOLUME 98 fl (80-97); PLATELET COUNT 335 10^3/uL (150-450); RED CELL DISTRIBUTION WIDTH 16.2 % (11.5-14.0); WHITE BLOOD COUNT 7.7 10^3/uL (4.0-10.5)
[2020-03-10 13:33] LABS: ALBUMIN 4.4 g/dL (3.5-5.0); ALKALINE PHOSPHATASE 145 U/L (38-126); ANION GAP 10 (5-19); ASPARTATE AMINO TRANSFERASE 56 U/L (14-36); BILIRUBIN,DIRECT 0.2 mg/dL (0.0-0.4); BILIRUBIN,TOTAL 0.6 mg/dL (0.2-1.3); BLOOD UREA NITROGEN 14 mg/dL (7-20); CALCIUM 9.4 mg/dL (8.4-10.2); CARBON DIOXIDE 25 mmol/L (22-30); CHLORIDE 88 mmol/L (98-107); GLUCOSE 127 mg/dL (75-110)
[2020-03-10 13:50] LABS: ABSOLUTE LYMPHOCYTES# (MANUAL) 0.4 10^3/uL (0.5-4.7); ABSOLUTE MONOCYTES # (MANUAL) 0.4 10^3/uL (0.1-1.4); BASOPHILS % (MANUAL) 1 % (0-2); EOSINOPHILS % (MANUAL) 0 % (0-6); LYMPHOCYTES % (MANUAL) 5 % (13-45); MONOCYTES % (MANUAL) 5 % (3-13); SEGMENTED NEUTROPHILS % (MAN) 89 % (42-78); TOTAL CELLS COUNTED 100
[2020-03-10] MEDS ORDERED: GLYCOPYRROLATE INJ 0.4 MG/2 ML VIAL IM ONE (13:50)
[2020-03-10 13:51] LABS: ANISOCYTOSIS 1+; PLATELET COMMENT ADEQUATE
--- NOTE | 2020-03-10 15:07 | RADIOLOGY REPORT (SQ) ---
EXAM DESCRIPTION: CT SOFT TISSUE NECK WITH IMAGES COMPLETED DATE/TIME: 03/10/2020 2:24 pm REASON FOR STUDY: cancer/mass/trouble swallowing COMPARISON: None. TECHNIQUE: Post IV contrasted scanning from skull base through lung apices with review of bone, soft tissue and lung windows. Reconstructed coronal and sagittal MPR images reviewed. All images stored on PACS. All CT scanners at this facility use dose modulation, iterative reconstruction, and/or weight based d osing when appropriate to reduce radiation dose to as low as reasonably achievable (ALARA). [facility]: Dose Right [facility]: CareDose [facility]: Dose Right [facility]: Teradose 4D [facility]: [employer] CONTRAST TYPE AND DOSE: Contrast/concentration: Isovue 350.00 mg/ml; Total Contrast Delivered: 75.0 ml; Total Saline Delivered: 20.0 ml RENAL FUNCTION: Creatinine 0.23 milligrams/deciliter. RADIATION DOSE: CT Rad equipment meets quality standard of care and radiation dose reduction techniq ues were employed. CTDIvol: 13.8 mGy. DLP: 366 mGy-cm. LIMITATIONS: Evaluation is limited due to patient's inability to extend the neck. FINDINGS: SKULL BASE: No gross abnormality. MAJOR SALIVARY GLANDS: No definite abnormality. LYMPHADENOPATHY: Enlarged left-sided level IV lymph node that measures 10 mm in diameter (image 31 o f series 203). MUCOSAL MASSES OR ASYMMETRY: Ill-defined mass in the right tonsillar sinus. There is no compromise o f the airway. LARYNX/CORDS: No gross abnormality. VASCULAR STRUCTURES: The cervical segment of the ICAs occluded. The M1 segment of the right MCA is p atent. LUNG APICES: There are multiple bilateral pulmonary nodules that measure up to 15 x 12 mm (image 33 o f series 203). BONES: Limited evaluation. THYROID: No gross abnormality. PARANASAL SINUSES: Clear. OTHER: Surgical clips in the right-side of the neck - correlate for prior lymph node dissection. IMPRESSION: 1. Limited CT of the neck due to the patient's inability to extend the neck. There is a n ill-defined mass in the right tonsillar sinus without associated compromise of the airway. The antasha gical clips throughout the right side of the neck could relate to prior lymph node dissection. There is an enlarged left-sided level IV lymph node (image 31 of series 203) and there are multiple bilate ral pulmonary nodules that measure up to 15 x 12 mm) image 33 of series 203) - these findings are con cerning for metastases. 2. 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 TECHNICAL DOCUMENTATION: JOB ID: [id number] Quality ID # [id number]: Final reports with documentation of one or more dose reduction techniques (e.g., Au tomated exposure control, adjustment of the mA and/or kV according to patient size, use of iterative reconstruction technique) 2010 [employer]- All Rights Reserved Reading location - IP/workstation name: [email or web address]
--- NOTE | 2020-03-10 16:37 | ER Document Report ---
ED General - General Chief Complaint: Shortness Of Breath Stated Complaint: SHORTNESS OF BREATH Time Seen by Provider: 03/10/20 13:04 Primary Care Provider: ALLIE PEARSON MD [Primary Care Provider] - Follow up as needed Mode of Arrival: Medic Information source: Patient TRAVEL OUTSIDE OF THE [place] IN LAST 30 DAYS: No - HPI Notes: Patient has a known history of tongue cancer. She was at her ENT doctor's office today for routine follow-up. The ENT doctor felt that the patient was having some sonorous respirations and spoke with the halfway with the patient came from. They state that the patient has been having trouble with secretions and swallowing over the last several days. Patient states she does not feel short of breath but she does have trouble swallowing. She denies any fevers. She states she does have pain in the back part of her mouth and her tongue and the right side of her neck. This pain is been constant for several days. It is worse with swallowing and better without swallowing. It radiates into her new right neck. It is a aching sensation. She has no known covert exposures. - Related Data Allergies/Adverse Reactions: No Known Allergies Allergy (Verified 03/10/20 13:02) Home Medications: atorovastatin, digozin, atorvent, melatonin, metoprolol, midodrine, Miralax, potassium, Nystatin. Past Medical History - General Information source: Patient - Social History Smoking Status: Former Smoker Frequency of alcohol use: None Drug Abuse: None Family History: Reviewed & Not Pertinent Patient has homicidal ideation: No - Past Medical History Cardiac Medical History: Reports: Hx Atrial Fibrillation, Hx Coronary Artery Disease, Hx Hypercholesterolemia, Hx Hypertension, Hx Peripheral Vascular Disease Neurological Medical History: Reports: Hx Cerebrovascular Accident, Hx Seizures Psychiatric Medical History: Reports: Hx Depression Past Surgical History: Reports: Hx Hysterectomy, Hx Orthopedic Surgery - Left second toe metatarsal amputation for ischemic gangrenous toe. Left BKA, Hx Pacemaker, Hx Vascular Surgery - Left femoropopliteal bypass with tibial angioplasty, Other - AICD December 2019 - Immunizations Immunizations up to date: Yes Hx Diphtheria, Pertussis, Tetanus Vaccination: Yes - unknown Review of Systems - Review of Systems Constitutional: denies: Chills, Fever Cardiovascular: denies: Chest pain, Palpitations Respiratory: denies: Cough, Short of breath -: Yes All other systems reviewed and negative Physical Exam - Vital signs Vitals: Temp Resp BP Pulse Ox 97.8 F 15 101/67 95 03/10/20 13:03 03/10/20 13:03 03/10/20 13:03 03/10/20 13:03 Interpretation: Normal - General General appearance: Appears well, Alert - HEENT Head: Normocephalic, Atraumatic Eyes: Normal Pupils: PERRL Pharynx: Other - Patient has an obvious mass in the right peritonsillar area on visual exam. - Respiratory Respiratory status: No respiratory distress Chest status: Nontender Breath sounds: Normal Chest palpation: Normal - Cardiovascular Rhythm: Regular Heart sounds: Normal auscultation Murmur: No - Abdominal Inspection: Normal Distension: No distension Bowel sounds: Normal Tenderness: Nontender Organomegaly: No organomegaly - Back Back: Normal, Nontender - Extremities General upper extremity: Normal inspection, Nontender, Normal color, Normal ROM, Normal temperature General lower extremity: Normal inspection, Nontender, Normal color, Normal ROM, Normal temperature, Normal weight bearing. No: Jb's sign - Neurological Neuro grossly intact: Yes Cognition: Normal Orientation: AAOx4 Karena Coma Scale Eye Opening: Spontaneous Karena Coma Scale Verbal: Oriented [place] Coma Scale Motor: Obeys Commands [place] Coma Scale Total: 15 Speech: Normal Motor strength normal: LUE, RUE, LLE, RLE Sensory: Normal - Psychological Associated symptoms: Normal affect, Normal mood - Skin Skin Temperature: Warm Skin Moisture: Dry Skin Color: Normal Course - Re-evaluation Re-evalutation: 03/10/20 16:35 Patient presents with occasional sonorous respirations from ENT office. She denies feeling short of breath. A mass can be seen in the right hypopharynx and its most likely is cancerous this patient has a history of tongue cancer. I have spoke with [facility] ear nose and throat physician, Dr. Arredondo. He has accepted the patient in transfer. I did also speak with radiology concerning the patient's CT scan and the radiologist felt that the airway was patent and not in danger of impending obstruction. Throughout her course here she has continued to have intermittent sonorous respirations but has maintained a normal oxygen saturation with normal heart rate and blood pressure. She continues in the night shortness of breath. She has had some increased secretions and was treated for that as well as with steroids and racemic epinephrine. - Vital Signs Vital signs: Temp Pulse Resp BP Pulse Ox 98.0 F 16 131/64 H 95 03/10/20 13:03 03/10/20 15:30 03/10/20 15:01 03/10/20 15:30 - Laboratory Result Diagrams: 03/10/20 13:04 03/10/20 13:04 Laboratory results interpreted by me: 03/10/20 03/10/20 13:04 13:04 RBC 3.40 L Hgb 11.6 L Hct 33.4 L MCV 98 H MCH 34.1 H RDW 16.2 H Seg Neuts % (Manual) 89 H Lymphocytes % (Manual) 5 L Abs Lymphs (Manual) 0.4 L Sodium 122.7 L Chloride 88 L Creatinine 0.23 L Glucose 127 H AST 56 H Alkaline Phosphatase 145 H - Diagnostic Test Radiology reviewed: Image reviewed, Reports reviewed Discharge - Discharge Clinical Impression: Pharyngeal mass Condition: Critical Disposition: [facility] Referrals: ALLIE PEARSON MD [Primary Care Provider] - Follow up as needed
[2020-03-10] MEDS ORDERED: NORMAL SALINE 1000 ML 1,000 ML IV ONE (17:45)
[2020-03-10 20:16] VITALS: BP 141/81
== END 2020-03-10 20:16 | disposition short-term general hospital (02) ==
LOC: ER 12:54
DX: J39.2 Other diseases of pharynx (principal); R06.02 Shortness of breath; R13.10 Dysphagia, unspecified; Z85.810 Personal history of malignant neoplasm of tongue; Z87.891 Personal history of nicotine dependence; I48.91 Unspecified atrial fibrillation; I25.10 Atherosclerotic heart disease of native coronary artery without angina pectoris; E78.00 Pure hypercholesterolemia, unspecified; I10 Essential (primary) hypertension; Z20.828 Contact with and (suspected) exposure to other viral communicable diseases
CPT/HCPCS: 94640; 99291; 96372; 96374; 36415; 85025; 80053; 70491; U0003; J2930; J3490; 87635

== ENCOUNTER 2020-03-17 18:07 | Inpatient (IN) | payer MEDICARE, MEDICAID ==
[2020-03-17] MEDS ORDERED: ACETAMINOPHEN 325 MG TABLET PEG PRN (18:21)
[2020-03-17] MEDS ORDERED: ALBUTEROL SULFATE 0.083% NEB 2.5 MG/3 ML AMPUL NEB PRN (18:21)
[2020-03-17] MEDS ORDERED: DEXTROSE 50%-WATER 25 GM/50 ML DISP.SYRIN IV PRN ×2 (18:27)
[2020-03-17] MEDS ORDERED: ONDANSETRON HCL INJ/PF 4 MG/2 ML SDV IV PRN (18:27)
[2020-03-17] MEDS ORDERED: MAG HYDROX/AL HYDROX/SIMETH SUSP 30 ML UDCUP PO PRN (18:27)
[2020-03-17] MEDS ORDERED: DEXTROSE 40% GEL 15 GM TUBE PO PRN ×2 (18:27)
[2020-03-17] MEDS ORDERED: GLUCAGON,HUMAN RECOMB 1 MG INJ SUBCUT PRN (18:27)
--- NOTE | 2020-03-17 18:45 | PDOC H&P ---
History of Present Illness Admission Date/PCP: 03/17/20 18:07 ALLIE PEARSON MD Patient complains of: Difficulty swallowing, stridor, History of Present Illness: CRISTINE WATERMAN is a 65 year old female who is been admitted as a back transfer from [facility]. Patient had initially presented to our emergency department on 03/10/2020 after being referred by her ENT provider for evaluation of stridor. CT of the neck revealed a mass in her right hypopharyngeal region. [facility] by [facility]. [facility], patient was taken to the OR on 03/11/2020 and a tracheostomy, direct laryngoscopy with thomas endoscopy and biopsy was performed. 6 cfd [place] trach was placed. [place] valve was placed. PET CT was obtained which demonstrated known parapharyngeal mass as well as multiple pulmonary nodules. Intraoperative biop sy was remarkable for invasive squamous cell carcinoma. Oncology was consulted who recommended against pursuing lung nodule biopsy and recommended palliative radiation therapy +/- DOAC chemotherapy outpatient. Patient started on tube feeds via G-tube. Her warfarin was resumed on 03/14. She was also started on Midodrine for hypotension. Has been tolerating tube feeds and sent back to [facility]. Patient currently denies any shortness of breath but states that she would like radiation therapy in order to improve her swallowing. Past Medical History Cardiac Medical History: Reports: Atrial Fibrillation, Coronary Artery Disease, Hyperlipidema, Hypertension, Peripheral Vascular Disease Neurological Medical History: Reports: Seizures Psychiatric Medical History: Reports: Depression Hematology: Reports: Anemia Past Surgical History Past Surgical History: Reports: Hysterectomy, Orthopedic Surgery - Left second toe metatarsal amputation for ischemic gangrenous toe. Left BKA, Pacemaker, Vascular Surgery - Left femoropopliteal bypass with tibial angioplasty, Other - AICD December 2019 Social History Smoking Status: Former Smoker Frequency of Alcohol Use: Rare Hx Recreational Drug Use: No Hx Prescription Drug Abuse: No - Advance Directive Resuscitation Status: Full Code Family History Family History: Reviewed & Not Pertinent Parental Family History Reviewed: Yes Children Family History Reviewed: Unknown Sibling(s) Family History Reviewed.: Unknown Medication/Allergy Home Medications: Atorvastatin Calcium 80 mg PO QHS 10/25/14 Gabapentin [Neurontin 300 mg Capsule] 600 mg PO TID 10/25/14 Polyethylene Glycol 3350 [Miralax Powder 17 gm/Packet] 17 gm PO DAILY 10/25/14 Potassium Chloride [K-Tab ER] 20 meq PO DAILY 02/22/15 Pyridoxine HCl [Vitamin B-6] 50 mg PO DAILY 02/22/15 Acetaminophen [Tylenol] 650 mg PO Q4 01/21/20 Apixaban [Eliquis 5 mg Tablet] 5 mg PO BID 01/21/20 Carbamazepine [Tegretol 200 mg Tablet] 200 mg PO BID 01/21/20 Fluvoxamine 50mg 50 mg PO QHS 01/21/20 Ipratropium [place] [Atrovent 0.06% Nasal [place]] 2 spray NASL QID PRN 01/21/20 Melatonin [Melatonin 5 mg Tablet] 10 mg PO QHS 01/21/20 Mirtazapine [Remeron 15 mg Tablet] 30 mg PO DAILY 01/21/20 Multivitamin/Iron/Folic Acid [Centrum Complete Multivit Tab] 1 each PO 01/21/20 Nystatin [Mycostatin Topical Powder 15 gm] 1 applic TP BID 01/21/20 Cefazolin Sodium [Ancef Inj 1 gm Vial] 2 gm IV Q8 vial 01/30/20 Digoxin [Lanoxin 0.125 mg Tablet] 0.125 mg PO DAILY tablet 01/30/20 Metoprolol Succinate [Toprol Xl 25 mg Tab.sr] 25 mg PO Q12 tab.sr.24h 01/30/20 Sacubitril/Valsartan [Entresto 24 mg/26 mg Tablet] 1 tab PO BID #60 tablet 01/30/20 Allergies/Adverse Reactions: No Known Allergies Allergy (Verified 03/10/20 13:02) Review of Systems ROS unobtainable: Due to endotracheal tube Physical Exam General appearance: PRESENT: no acute distress, cooperative Head exam: PRESENT: normocephalic Eye exam: PRESENT: EOMI Neck exam: PRESENT: tracheostomy Respiratory exam: PRESENT: unlabored, other - vibrating breath sounds but w/o wheeze, crackles. ABSENT: tachypnea, wheezes Cardiovascular exam: PRESENT: RRR, +S1, +S2. ABSENT: tachycardia GI/Abdominal exam: PRESENT: soft. ABSENT: rebound, rigid, tenderness Neurological exam: PRESENT: alert, awake, oriented to person, oriented to place, oriented to time Psychiatric exam: ABSENT: agitated, anxious Focused psych exam: ABSENT: pressured speech Assessment and Plan - Diagnosis (1) Squamous cell carcinoma of pharynx Is this a current diagnosis for this admission?: Yes (2) Status post trachelectomy Is this a current diagnosis for this admission?: Yes (3) Longstanding persistent atrial fibrillation Is this a current diagnosis for this admission?: Yes (4) Hypotension Is this a current diagnosis for this admission?: Yes - Plan Summary Summary: Will have patient saline. Continue patient on trach collar. Continue Toprol-XL and warfarin for patient's A. fib. Consults heme-onc. Apparently patient was receiving radiation therapy at [facility]. Palliative care consult. Patient has multiple comorbidities including her limited functional status, limited ambulation with AKA and BKA, cardiovascular issues and would likely be hospice appropriate. Further conversations to follow. I will resume tube feeds. Patient was receiving pivot 1.[address] her on Jevity and consults dietitian for tube feed recommendations. We will get some labs tomorrow morning. - Time Time Spent with patient: 35 or more minutes
[2020-03-17 19:14] LABS: HEMATOCRIT 30.5 % (36.0-47.0); HEMOGLOBIN 10.6 g/dL (12.0-15.5); MEAN CORPUSCULAR HGB CONC 34.6 g/dL (32.0-36.0); MEAN CORPUSCULAR VOLUME 98 fl (80-97); PLATELET COUNT 310 10^3/uL (150-450); RED BLOOD COUNT 3.11 10^6/uL (3.72-5.28); RED CELL DISTRIBUTION WIDTH 15.5 % (11.5-14.0); WHITE BLOOD COUNT 7.8 10^3/uL (4.0-10.5)
[2020-03-17] MEDS ORDERED: WARFARIN SODIUM 3 MG TABLET PO SCH (22:00)
[2020-03-17] MEDS: CARBAMAZEPINE SUSP 200 MG/10 ML UDCUP PEG SCH (22:04)
[2020-03-17] MEDS: FAMOTIDINE 20 MG TABLET PEG SCH (22:04)
[2020-03-17] MEDS: ATORVASTATIN CALCIUM 80 MG TABLET PEG SCH (22:04)
[2020-03-17] MEDS: MELATONIN 5 MG TABLET NG SCH (22:04)
[2020-03-17] MEDS: OXYCODONE-ACETAMINOPHEN 5-325 MG TABLET PEG PRN (23:58)
[2020-03-18 06:09] LABS: ABSOLUTE EOSINOPHILS # (AUTO) 0.2 10^3/uL (0.0-0.6); ABSOLUTE LYMPHOCYTES (AUTO) 0.6 10^3/uL (0.5-4.7); ABSOLUTE MONOCYTES (AUTO) 0.8 10^3/uL (0.1-1.4); ABSOLUTE NEUT (AUTO) 3.9 10^3/uL (1.7-8.2); BASOPHILS % (AUTO) 0.6 % (0-2); EOSINOPHILS % (AUTO) 4.3 % (0-6); HEMATOCRIT 30.4 % (36.0-47.0); HEMOGLOBIN 10.4 g/dL (12.0-15.5); LYMPHOCYTES % (AUTO) 11.5 % (13-45); MEAN CORPUSCULAR HEMOGLOBIN 33.7 pg (27.0-33.4); MEAN CORPUSCULAR HGB CONC 34.2 g/dL (32.0-36.0); MEAN CORPUSCULAR VOLUME 99 fl (80-97); MONOCYTES % (AUTO) 14.7 % (3-13); PLATELET COUNT 299 10^3/uL (150-450); RED BLOOD COUNT 3.08 10^6/uL (3.72-5.28); RED CELL DISTRIBUTION WIDTH 15.7 % (11.5-14.0); SEGMENTED NEUTROPHILS % (AUTO) 68.9 % (42-78); TOTAL CELLS COUNTED % (AUTO) 100 %; WHITE BLOOD COUNT 5.6 10^3/uL (4.0-10.5)
[2020-03-18 06:16] LABS: INTERNATIONAL RATION (INR) 1.16; PROTHROMBIN TIME 14.8 SEC (11.4-15.4)
[2020-03-18] MEDS: PANTOPRAZOLE SODIUM 40 MG PACKET.DR NG SCH (06:25)
[2020-03-18 06:28] LABS: ALKALINE PHOSPHATASE 155 U/L (38-126); ANION GAP 11 (5-19); ASPARTATE AMINO TRANSFERASE 49 U/L (14-36); BILIRUBIN,DIRECT 0.2 mg/dL (0.0-0.4); BILIRUBIN,TOTAL 0.5 mg/dL (0.2-1.3); BLOOD UREA NITROGEN 29 mg/dL (7-20); CALCIUM 9.7 mg/dL (8.4-10.2); CARBON DIOXIDE 27 mmol/L (22-30); CHLORIDE 94 mmol/L (98-107); GLUCOSE 89 mg/dL (75-110); POTASSIUM 4.5 mmol/L (3.6-5.0); TOTAL PROTEIN 7.4 g/dL (6.3-8.2)
--- NOTE | 2020-03-18 08:35 | PDOC CONSULTATION ---
Consultation Consult Date: 03/18/20 Provider Consulted: JONATAN REARDON Consult reason:: Hematology/Oncology consultation was requested for patient with metastatic head and neck cancer requesting palliative treatment. History of Present Illness Admission Date/PCP: 03/17/20 18:07 ALLIE PEARSON MD History of Present Illness: CRISTINE WATERMAN is a 65 year old female who has resided in a retirement facility for many years due to blindness and Left lower extremity AKA. Patient will only shake her head Y-N to questions. History was obtained by review of medical records. I also tried to contact family listed in chart, but was not able to reach anyone. In December of 2017, patient was diagnosed with Sq Cell Ca of the right tongue and underwent resection only. Patient underwent pacemaker placement around December 2019. There was no mention at that time of difficulty breathing or obvious neck mass. She was also admitted to [facility] 01/21/2020 for Sepsis any hypotension, thought to be due to UTI. CXR was clear and again, no mention of respiratory difficulties or neck mass. On 03/10/2020 she presented to the ED with strider, CT confirmed wide-spread neck and lung masses consistent with metastatic head and neck cancer. She was transferred directly to [facility]. She underwent tracheostomy placement and direct laryngoscopy with biopsy which confirmed Squamous Cell Carcinoma. PET confirmed Stage IVC with multiple pulmonary mets. She was evaluated by medical oncology, radiation oncology and palliative care while at [facility]. Patient expressed her desire for palliative radiation therapy, but no aggressive measures, such as chemo. Her goal was quality of life. She was transferred back here for further treatment. She is tolerating her PEG tube feedings well. Of note, she has been on warfarin for A- fib and recommendation at [facility] was to change this to a newer agent if possible as INRs have fluctuated. Today, she opens her eyes only briefly, appears very sleepy, and will only shake her head Y-N. She denies any breathing difficulties. She denies any pain. Past Medical History Cardiac Medical History: Reports: Atrial Fibrillation, Coronary Artery Disease, Hyperlipidema, Hypertension, Peripheral Vascular Disease Neurological Medical History: Reports: Seizures Malignancy Medical History: Reports: Other - Tongue cancer 2018 Psychiatric Medical History: Reports: Depression, General Anxiety Disorder, Other - Picking due to anxiety Hematology: Reports: Anemia Past Surgical History Past Surgical History: Reports: Hysterectomy, Orthopedic Surgery - Left second toe metatarsal amputation for ischemic gangrenous toe. Left BKA, Pacemaker, Vascular Surgery - Left femoropopliteal bypass with tibial angioplasty, Other - AICD December 2019 Social History Lives with: Skilled Nursing Smoking Status: Former Smoker Electronic Cigarette use?: No Frequency of Alcohol Use: Rare Hx Recreational Drug Use: No Hx Prescription Drug Abuse: No - Advance Directive Resuscitation Status: Full Code Family History Parental Family History Reviewed: No Children Family History Reviewed: No Sibling(s) Family History Reviewed.: No Medication/Allergy Home Medications: Atorvastatin Calcium 80 mg GT QPM 10/25/14 Acetaminophen [Tylenol] 650 mg GT Q4HP PRN 01/21/20 Carbamazepine [Tegretol 200 mg Tablet] 200 mg GT BID 01/21/20 Melatonin [Melatonin 5 mg Tablet] 10.5 mg GT QHS 01/21/20 Multivitamin/Iron/Folic Acid [Centrum Complete Multivit Tab] 1 each GT DAILY 01/21/20 Aspirin [Aspirin 81 mg Chewable Tablet] 81 mg GT DAILY 03/17/20 Digoxin [Lanoxin 0.125 mg Tablet] 0.125 mg GT DAILY 03/17/20 Metoprolol Succinate [Toprol Xl 25 mg Tab.sr] 12.5 mg GT Q12 03/17/20 Midodrine HCl [Proamatine 5 mg Tablet] 10 mg GT TID 03/17/20 Oxycodone HCl [Oxy-Ir 5 mg Tablet] 5 mg GT Q4HP PRN 03/17/20 Potassium Chloride [Klor-Con 10 Meq Tablet ER] 10 meq GT DAILY 03/17/20 Warfarin Sodium [Coumadin 3 mg Tablet] 3 mg GT QPM 03/17/20 Allergies/Adverse Reactions: No Known Allergies Allergy (Verified 03/10/20 13:02) Review of Systems ROS unobtainable: Other - Due to Trach. Physical Exam Vital Signs: Temp Pulse Resp BP Pulse Ox 97.5 F 70 16 97/42 L 100 03/18/20 03:16 03/18/20 07:00 03/18/20 03:16 03/18/20 03:16 03/18/20 05:47 Intake & Output 03/17/20 03/18/20 03/19/20 06:59 06:59 06:59 Weight 46.4 kg General appearance: PRESENT: no acute distress, thin Exam: 65 year old female. Head exam: PRESENT: atraumatic Eye exam: PRESENT: other - Patient is blind. She does not cooperate fully with exam. Mouth exam: PRESENT: moist Neck exam: PRESENT: tracheostomy Respiratory exam: PRESENT: prolonged expiratory phas, unlabored, other - No wheezing or crackles. Upper airway noise, especially on expiration. Cardiovascular exam: PRESENT: other - faint heart sounds.. ABSENT: systolic murmur GI/Abdominal exam: PRESENT: soft. ABSENT: tenderness Extremities exam: PRESENT: other - Left AKA.. ABSENT: pedal edema Neurological exam: PRESENT: altered Psychiatric exam: PRESENT: other - Very sleepy. Skin exam: PRESENT: other - excoriation over face and ears. Nurses report she picks at her skin. Results Laboratory Results: 03/18/20 05:11 03/18/20 05:11 03/17/20 03/18/20 03/18/20 19:03 05:11 05:11 WBC 7.8 5.6 RBC 3.11 L 3.08 L Hgb 10.6 L 10.4 L Hct 30.5 L 30.4 L MCV 98 H 99 H MCH 34.0 H 33.7 H MCHC 34.6 34.2 RDW 15.5 H 15.7 H Plt Count 310 299 Seg Neutrophils % 68.9 Sodium 132.1 L Potassium 4.5 Chloride 94 L Carbon Dioxide 27 Anion Gap 11 BUN 29 H Creatinine 0.32 L Est GFR ( Amer) > 60 Glucose 89 Calcium 9.7 Magnesium 2.1 Total Bilirubin 0.5 AST 49 H Alkaline Phosphatase 155 H Total Protein 7.4 Albumin 4.0 Impressions: I was able to review the reports from [facility], but I do not have images to review. I have also reviewed all labs and have requested final pathology report, as p16 was still pending at time of transfer. Assessment & Plan - Diagnosis (1) Longstanding persistent atrial fibrillation Is this a current diagnosis for this admission?: Yes Plan: Currently on warfarin but INR is only 1.6 and has been difficult to maintain in therapeutic range. She does not have a mechanical valve to my knowledge and her Cr is normal. Therefore, I believe changing her to a newer agent would be safer and require less blood draws. I would ask cardiology their opinion as well, but until then, would use Lovenox as bridge until INR is >2. (2) Squamous cell carcinoma of pharynx Is this a current diagnosis for this admission?: Yes Plan: I spoke with patient briefly, and am trying to reach her daughter to discuss. She is still a full code, and notes from [facility] indicate that patient had requested palliative radiation therapy, but not chemo. Recommendation was to try either pembrolizumab or cetuximab for palliation, if patient agrees. However, I would not start these until after radiation has completed. Also, I am not sure it will be possible to give these treatments while she is a resident of a SNF. I will need to discuss this with Dr. Pearson if patient is to return to [facility]. If she is not receiving any active treatment, then she is also a great candidate for Hospice services to focus on quality of life. I am happy to help arrange this, if needed. I have asked Dr. Mcduffie to see her for consideration of radiation therapy. He will be available tomorrow morning to evaluate her. - Plan Summary Plan Summary: Patient was discussed with Dr. Mcduffie. I have requested Pathology report from [facility]. I will continue to try to reach family and discuss code status. Please call with any other concerns.
[2020-03-18] MEDS: ASPIRIN 81 MG TABLET, CHEWABLE PEG SCH (10:59)
[2020-03-18] MEDS: DIGOXIN 0.125 MG TABLET PEG SCH (10:59)
[2020-03-18] MEDS: FAMOTIDINE 20 MG TABLET PEG SCH ×2 (10:59→22:47)
[2020-03-18] MEDS: METOPROLOL SUCCINATE 25 MG TAB.SR.24H PO SCH (10:59)
[2020-03-18] MEDS: OXYCODONE-ACETAMINOPHEN 5-325 MG TABLET PEG PRN ×2 (10:59→18:22)
[2020-03-18] MEDS: NYSTATIN CREAM 15 GM TP SCH ×2 (11:00→18:16)
[2020-03-18] MEDS: POTASSIUM CHLORIDE 20 MEQ PACKET PEG SCH (11:00)
[2020-03-18] MEDS: DOCUSATE SODIUM 100 MG/10 ML UDC PEG SCH (11:00)
[2020-03-18] MEDS: CARBAMAZEPINE SUSP 200 MG/10 ML UDCUP PEG SCH ×2 (11:01→22:47)
[2020-03-18] MEDS: PYRIDOXINE HCL 50 MG TABLET PEG SCH (11:01)
[2020-03-18] MEDS ORDERED: NORMAL SALINE 1000 ML 1,000 ML IV ONE (13:15)
[2020-03-18] MEDS: MIDODRINE HCL 5 MG TABLET PEG SCH ×2 (14:01→18:16)
--- NOTE | 2020-03-18 14:20 | PDOC PROGRESS REPORT ---
Subjective Progress Note for:: 03/18/20 Subjective:: Today patient denies any shortness of breath. Also talking to patient about the chemo and radiation she states that she wants to keep getting the radiation to see if she will help improve her swallowing function. However she states that she does not want to do chemotherapy. I raised the issue of CODE STATUS with patient and she started tearing up and states that she does not know if she wants to be full code or DNR. She states she will continue to think about it. Reason For Visit: SQUAMOUS CELL CANCER Physical Exam Vital Signs: Temp Pulse Resp BP Pulse Ox 98.1 F 70 16 71/59 L 100 03/18/20 12:48 03/18/20 12:48 03/18/20 12:48 03/18/20 12:55 03/18/20 12:48 Intake & Output 03/17/20 03/18/20 03/19/20 06:59 06:59 06:59 Intake Total 287 Balance 287 Weight 46.4 kg General appearance: PRESENT: no acute distress, cooperative Neck exam: ABSENT: JVD Respiratory exam: PRESENT: clear to auscultation olamide, rhonchi - upper airway, symmetrical, unlabored. ABSENT: tachypnea, wheezes Cardiovascular exam: PRESENT: RRR, +S1, +S2. ABSENT: tachycardia GI/Abdominal exam: PRESENT: soft. ABSENT: rebound, rigid, tenderness Neurological exam: PRESENT: alert, awake, oriented to person, oriented to place, oriented to time, oriented to situation Results Laboratory Results: 03/18/20 05:11 03/18/20 05:11 03/17/20 03/18/20 03/18/20 19:03 05:11 05:11 WBC 7.8 5.6 RBC 3.11 L 3.08 L Hgb 10.6 L 10.4 L Hct 30.5 L 30.4 L MCV 98 H 99 H MCH 34.0 H 33.7 H MCHC 34.6 34.2 RDW 15.5 H 15.7 H Plt Count 310 299 Seg Neutrophils % 68.9 Sodium 132.1 L Potassium 4.5 Chloride 94 L Carbon Dioxide 27 Anion Gap 11 BUN 29 H Creatinine 0.32 L Est GFR ( Amer) > 60 Glucose 89 Calcium 9.7 Magnesium 2.1 Total Bilirubin 0.5 AST 49 H Alkaline Phosphatase 155 H Total Protein 7.4 Albumin 4.0 Assessment and Plan - Diagnosis (1) Squamous cell carcinoma of pharynx Is this a current diagnosis for this admission?: Yes (2) Status post trachelectomy Is this a current diagnosis for this admission?: Yes (3) Longstanding persistent atrial fibrillation Is this a current diagnosis for this admission?: Yes (4) Hypotension Is this a current diagnosis for this admission?: Yes (5) Chronic systolic CHF (congestive heart failure) Is this a current diagnosis for this admission?: Yes - Plan Summary Summary: Will have patient saline. Continue patient on trach collar. Continue Toprol-XL and warfarin for patient's A. fib. Consults heme-onc. Apparently patient was receiving radiation therapy at [facility]. Palliative care consult. Patient has multiple comorbidities including her limited functional status, limited ambulation with AKA and BKA, cardiovascular issues and would likely be hospice appropriate. Further conversations to paula galvin. I will resume tube feeds. Patient was receiving pivot 1.[address] her on Jevity and consults dietitian for tube feed recommendations. We will get some labs tomorrow morning. 03/18/2020 Patient was evaluated by Dr. Cook who has reached out to Dr. Mcduffie regarding radiation therapy continuation. Also noted recommendations of possibility of trying pembrolizumab or cetuximab for palliation subsequently after radiation is completed, if patient agrees. I have consulted palliative care to continue with conversations about palliation, hospice and goals of care planning which I have initiated myself. Continue toprol XL and digoxin for AFib. Reviewing patient's prior admissions, she was on Eliquis during her hospitalization in January. Uncertain when she was changed to warfarin. Heme-onc recommendations noted. I will discontinue warfarin and place patient on Eliquis. Continue trach care. Suctioning as needed for secretions. Trach collar. Hypotensive today so we will resume her Midodrine and give 1 L bolus. - Time Time Spent with patient: 15-24 minutes
[2020-03-18] MEDS: APIXABAN 5 MG TABLET PO SCH (18:16)
[2020-03-18] MEDS ORDERED: MIDODRINE HCL 5 MG TABLET PEG SCH (19:20)
[2020-03-18] MEDS ORDERED: WARFARIN SODIUM 5 MG TABLET PO SCH (22:00)
[2020-03-18] MEDS: MELATONIN 5 MG TABLET NG SCH (22:47)
[2020-03-18] MEDS: ATORVASTATIN CALCIUM 80 MG TABLET PEG SCH (22:48)
[2020-03-19] MEDS: OXYCODONE-ACETAMINOPHEN 5-325 MG TABLET PEG PRN ×4 (00:38→22:09)
[2020-03-19] MEDS: PANTOPRAZOLE SODIUM 40 MG PACKET.DR NG SCH (05:31)
[2020-03-19] MEDS: APIXABAN 5 MG TABLET PO SCH ×2 (05:31→18:06)
--- NOTE | 2020-03-19 08:16 | PDOC PROGRESS REPORT ---
Subjective Progress Note for:: 03/19/20 Subjective:: Patient was much more alert today and very talkative. She complains of the lump in her throat causing great difficulty swallowing. Her goal is to be able to swallow on her own so that she does not need the PEG tube. She denies pain. She states that her daughter was able to speak with her nurse yesterday and all questions were answered. Reason For Visit: SQUAMOUS CELL CANCER Physical Exam Vital Signs: Temp Pulse Resp BP Pulse Ox 97.5 F 70 14 106/47 L 98 03/19/20 03:39 03/19/20 03:39 03/19/20 03:39 03/19/20 03:39 03/19/20 03:58 Intake & Output 03/18/20 03/19/20 03/20/20 06:59 06:59 06:59 Intake Total 1624 Output Total 400 Balance 1224 Weight 46.4 kg 48.2 kg General appearance: PRESENT: no acute distress, thin Neck exam: PRESENT: tracheostomy Respiratory exam: PRESENT: unlabored Neurological exam: PRESENT: alert, awake Psychiatric exam: PRESENT: appropriate affect Skin exam: PRESENT: other - Still with lesions over face which appear to be healing. Results Laboratory Results: 03/18/20 05:11 03/18/20 05:11 Assessment & Plan - Diagnosis (1) Longstanding persistent atrial fibrillation Is this a current diagnosis for this admission?: Yes Plan: No on Eliquis. No obvious bleeding. (2) Squamous cell carcinoma of pharynx Is this a current diagnosis for this admission?: Yes Plan: She will see Dr. Mcduffie today to start palliative radiation therapy. No systemic therapy per patient's wishes. I believe plan is to transfer back to [facility] on discharge. At that point, Hospice would be very appropriate. We again discussed code status. She indicates that she does not want any extra tubes or machines, but will discuss this with her daughter. I have offered to arrange a conference call with the daughter to answer any questions. She will let me know if she would like to arrange this. At this point, I will follow from a distance. Please feel free to call with any concerns. - Time Time Spent with patient: 15-24 minutes
[2020-03-19] MEDS: MIDODRINE HCL 5 MG TABLET PEG SCH ×3 (10:13→18:06)
[2020-03-19] MEDS: FAMOTIDINE 20 MG TABLET PEG SCH ×2 (10:13→21:20)
[2020-03-19] MEDS: ASPIRIN 81 MG TABLET, CHEWABLE PEG SCH (10:13)
[2020-03-19] MEDS: DIGOXIN 0.125 MG TABLET PEG SCH (10:13)
[2020-03-19] MEDS: METOPROLOL SUCCINATE 25 MG TAB.SR.24H PO SCH (10:13)
[2020-03-19] MEDS: CARBAMAZEPINE SUSP 200 MG/10 ML UDCUP PEG SCH ×2 (10:14→21:20)
[2020-03-19] MEDS: POTASSIUM CHLORIDE 20 MEQ PACKET PEG SCH (10:14)
[2020-03-19] MEDS: DOCUSATE SODIUM 100 MG/10 ML UDC PEG SCH (10:14)
[2020-03-19] MEDS: PYRIDOXINE HCL 50 MG TABLET PEG SCH (10:15)
[2020-03-19] MEDS: NYSTATIN CREAM 15 GM TP SCH ×2 (10:16→18:06)
[2020-03-19] MEDS ORDERED: ONDANSETRON HCL INJ/PF 4 MG/2 ML SDV IV PRN (14:30)
--- NOTE | 2020-03-19 17:49 | PDOC PROGRESS REPORT ---
Subjective Progress Note for:: 03/19/20 Subjective:: Patient is doing well. She has no complaints at this time. She has not required frequent tracheostomy suctioning and she is able to do her own oral suctioning. Reason For Visit: SQUAMOUS CELL CANCER Physical Exam Vital Signs: Temp Pulse Resp BP Pulse Ox 97.9 F 70 16 122/52 L 100 03/19/20 12:32 03/19/20 14:00 03/19/20 12:32 03/19/20 12:32 03/19/20 12:32 Intake & Output 03/18/20 03/19/20 03/20/20 06:59 06:59 06:59 Intake Total 1624 327 Output Total 400 100 Balance 1224 227 Weight 46.4 kg 48.2 kg General appearance: PRESENT: no acute distress, cooperative Neck exam: ABSENT: JVD Respiratory exam: PRESENT: clear to auscultation olamide, unlabored Cardiovascular exam: PRESENT: RRR, +S1, +S2. ABSENT: tachycardia GI/Abdominal exam: PRESENT: soft. ABSENT: rebound, rigid, tenderness Neurological exam: PRESENT: alert, awake, oriented to person, oriented to place, oriented to time Results Laboratory Results: 03/18/20 05:11 03/18/20 05:11 Assessment and Plan - Diagnosis (1) Squamous cell carcinoma of pharynx Is this a current diagnosis for this admission?: Yes (2) Status post trachelectomy Is this a current diagnosis for this admission?: Yes (3) Longstanding persistent atrial fibrillation Is this a current diagnosis for this admission?: Yes (4) Hypotension Is this a current diagnosis for this admission?: Yes (5) Chronic systolic CHF (congestive heart failure) Is this a current diagnosis for this admission?: Yes - Plan Summary Summary: Will have patient saline. Continue patient on trach collar. Continue Toprol-XL and warfarin for patient's A. fib. Consults heme-onc. Apparently patient was receiving radiation therapy at [facility]. Palliative care consult. Patient has multiple comorbidities including her limited functional status, limited ambulation with AKA and BKA, cardiovascular issues and would likely be hospice appropriate. Further conversations to follow. I will resume tube feeds. Patient was receiving pivot 1.[address] her on Jevity and consults dietitian for tube feed recommendations. We will get some labs tomorrow morning. 03/18/2020 Patient was evaluated by Dr. Cook who has reached out to Dr. Mcduffie regarding radiation therapy continuation. Also noted recommendations of possibility of trying pembrolizumab or cetuximab for palliation subsequently after radiation is completed, if patient agrees. I have consulted palliative care to continue with conversations about palliation, hospice and goals of care planning which I have initiated myself. Continue toprol XL and digoxin for AFib. Reviewing patient's prior admissions, she was on Eliquis during her hospitalization in January. Uncertain when she was changed to warfarin. Heme-onc recommendations noted. I will discontinue warfarin and place patient on Eliquis. Continue trach care. Suctioning as needed for secretions. Trach collar. Hypotensive today so we will resume her Midodrine and give 1 L bolus. 03/19/2020 Patient has declined chemotherapy and she will be seen Dr. Mcduffie to start palliative radiation therapy. Discussed with patient's nurse who states that patient has not required frequent tracheostomy suctioning and patient has been able to adequately perform only oral suctioning herself. Patient is stable. Patient's goal is to have enough palliative radiation to be able to swallow adequately once again. Patient will continue palliative radiation in the outpatient setting. COVID-19 test was negative on 03/10/2020 Patient currently ready for discharge and we are trying to coordinate discharge with [facility]. Discharge planning involved.
[2020-03-19] MEDS ORDERED: BENZOCAINE/MENTHOL SORE THROAT LOZENGE BUCCAL PRN (17:50)
[2020-03-19] MEDS: ATORVASTATIN CALCIUM 80 MG TABLET PEG SCH (21:20)
[2020-03-19] MEDS: MELATONIN 5 MG TABLET NG SCH (21:20)
[2020-03-20] MEDS: PANTOPRAZOLE SODIUM 40 MG PACKET.DR NG SCH (05:09)
[2020-03-20] MEDS: APIXABAN 5 MG TABLET PO SCH ×2 (05:10→18:13)
[2020-03-20] MEDS: OXYCODONE-ACETAMINOPHEN 5-325 MG TABLET PEG PRN (07:37)
[2020-03-20] MEDS: MIDODRINE HCL 5 MG TABLET PEG SCH ×3 (09:12→18:13)
[2020-03-20] MEDS: POTASSIUM CHLORIDE 20 MEQ PACKET PEG SCH (09:12)
[2020-03-20] MEDS: FAMOTIDINE 20 MG TABLET PEG SCH ×2 (09:13→21:25)
[2020-03-20] MEDS: DOCUSATE SODIUM 100 MG/10 ML UDC PEG SCH (09:13)
[2020-03-20] MEDS: ASPIRIN 81 MG TABLET, CHEWABLE PEG SCH (09:13)
[2020-03-20] MEDS: DIGOXIN 0.125 MG TABLET PEG SCH (09:13)
[2020-03-20] MEDS: METOPROLOL SUCCINATE 25 MG TAB.SR.24H PO SCH (09:13)
[2020-03-20] MEDS: PYRIDOXINE HCL 50 MG TABLET PEG SCH (09:13)
[2020-03-20] MEDS: CARBAMAZEPINE SUSP 200 MG/10 ML UDCUP PEG SCH ×2 (09:14→21:25)
[2020-03-20] MEDS: NYSTATIN CREAM 15 GM TP SCH ×2 (09:14→18:13)
[2020-03-20] MEDS ORDERED: BUSPIRONE HCL 10 MG TABLET PO SCH (10:00)
--- NOTE | 2020-03-20 10:04 | PDOC PROGRESS REPORT ---
Subjective Progress Note for:: 03/20/20 Subjective:: Patient feels well. Denies any problems at this time. Continues to do her own oral suctioning. She is not having any significant amount of secretions through the trach. She feels well with exception of feeling sad and occasionally crying about her current diagnosis of cancer. States that she feels home anxiety yesterday and was picking at her skin. Reason For Visit: SQUAMOUS CELL CANCER Physical Exam Vital Signs: Temp Pulse Resp BP Pulse Ox 98.2 F 70 20 111/50 L 100 03/20/20 07:17 03/20/20 07:17 03/20/20 07:17 03/20/20 07:17 03/20/20 07:17 Intake & Output 03/19/20 03/20/20 03/21/20 06:59 06:59 06:59 Intake Total 1624 844 Output Total 400 450 Balance 1224 394 Weight 48.2 kg 47.4 kg General appearance: PRESENT: no acute distress, cooperative Neck exam: PRESENT: tracheostomy. ABSENT: JVD Respiratory exam: PRESENT: clear to auscultation olamide, unlabored. ABSENT: tachypnea, wheezes Cardiovascular exam: PRESENT: RRR, +S1, +S2. ABSENT: tachycardia GI/Abdominal exam: PRESENT: soft. ABSENT: rebound, rigid, tenderness Neurological exam: PRESENT: alert, awake, oriented to person, oriented to place, oriented to time Skin exam: PRESENT: skin tears Results Laboratory Results: 03/18/20 05:11 03/18/20 05:11 Assessment and Plan - Diagnosis (1) Squamous cell carcinoma of pharynx Is this a current diagnosis for this admission?: Yes (2) Status post trachelectomy Is this a current diagnosis for this admission?: Yes (3) Longstanding persistent atrial fibrillation Is this a current diagnosis for this admission?: Yes (4) Hypotension Is this a current diagnosis for this admission?: Yes (5) Chronic systolic CHF (congestive heart failure) Is this a current diagnosis for this admission?: Yes (6) Anxiety Is this a current diagnosis for this admission?: Yes - Plan Summary Summary: Will have patient saline. Continue patient on trach collar. Continue Toprol-XL and warfarin for patient's A. fib. Consults heme-onc. Apparently patient was receiving radiation therapy at [facility]. Palliative care consult. Patient has multiple comorbidities including her limited functional status, limited ambulation with AKA and BKA, cardiovascular issues and would likely be hospice appropriate. Further conversations to follow. I will resume tube feeds. Patient was receiving pivot 1.[address] her on Jevity and consults dietitian for tube feed recommendations. We will get some labs tomorrow morning. 03/18/2020 Patient was evaluated by Dr. Cook who has reached out to Dr. Mcduffie regarding radiation therapy continuation. Also noted recommendations of possibility of trying pembrolizumab or cetuximab for palliation subsequently after radiation is completed, if patient agrees. I have consulted palliative care to continue with conversations about palliation, hospice and goals of care planning which I have initiated myself. Continue toprol XL and digoxin for AFib. Reviewing patient's prior admissions, she was on Eliquis during her hospitalization in January. Uncertain when she was changed to warfarin. Heme-onc recommendations noted. I will discontinue warfarin and place patient on Eliquis. Continue trach care. Suctioning as needed for secretions. Trach collar. Hypotensive today so we will resume her Midodrine and give 1 L bolus. 03/19/2020 Patient has declined chemotherapy and she will be seen Dr. Mcduffie to start palliative radiation therapy. Discussed with patient's nurse who states that patient has not required frequent tracheostomy suctioning and patient has been a ble to adequately perform only oral suctioning herself. Patient is stable. Patient's goal is to have enough palliative radiation to be able to swallow adequately once again. Patient will continue palliative radiation in the outpatient setting. COVID-19 test was negative on 03/10/2020 Patient currently ready for discharge and we are trying to coordinate discharge with [facility]. Discharge planning involved. 03/20/2020 Informed that [facility] requires repeat COVID-19 test within 7 days and as such patient was tested once again yesterday. Results are pending. Patient started on palliative radiation therapy yesterday with goal of improving her swallowing ability. She tolerated the radiation session well and has no complaints, soreness of the throat or mouth today. 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 I have started her on buspirone. She has declined chemotherapy. Her trach tube was switched out on 03/18/2020. Next replacement will be in 1 to 3 months. She has been doing well on trach collar connected to humidifier. Patient has not had frequent secretions from her trach tube and has only required routine trach care & routine infrequent suctioning. She only has some occasional oral secretions which she suctions out herself. We will continue to plan disposition to [facility] with discharge planning. Palliative radiation therapy can be continued outpatient. - Time Time Spent with patient: Less than 15 minutes
[2020-03-20] MEDS: ACETAMINOPHEN SOLN 325 MG/10.15 ML UDCUP PEG PRN ×2 (13:14→18:13)
[2020-03-20] MEDS: ATORVASTATIN CALCIUM 80 MG TABLET PEG SCH (21:25)
[2020-03-20] MEDS: MELATONIN 5 MG TABLET NG SCH (21:25)
[2020-03-21] MEDS: ACETAMINOPHEN SOLN 325 MG/10.15 ML UDCUP PEG PRN ×3 (02:49→18:07)
[2020-03-21] MEDS: PANTOPRAZOLE SODIUM 40 MG PACKET.DR NG SCH (05:08)
[2020-03-21] MEDS: APIXABAN 5 MG TABLET PO SCH ×2 (05:08→18:08)
[2020-03-21] MEDS: DIGOXIN 0.125 MG TABLET PEG SCH (10:23)
[2020-03-21] MEDS: METOPROLOL SUCCINATE 25 MG TAB.SR.24H PO SCH (10:23)
[2020-03-21] MEDS: FAMOTIDINE 20 MG TABLET PEG SCH ×2 (10:23→22:36)
[2020-03-21] MEDS: ASPIRIN 81 MG TABLET, CHEWABLE PEG SCH (10:23)
[2020-03-21] MEDS: POTASSIUM CHLORIDE 20 MEQ PACKET PEG SCH (10:23)
[2020-03-21] MEDS: MIDODRINE HCL 5 MG TABLET PEG SCH ×3 (10:23→18:08)
[2020-03-21] MEDS: PYRIDOXINE HCL 50 MG TABLET PEG SCH (10:24)
[2020-03-21] MEDS: CARBAMAZEPINE SUSP 200 MG/10 ML UDCUP PEG SCH ×2 (10:24→22:36)
[2020-03-21] MEDS: DOCUSATE SODIUM 100 MG/10 ML UDC PEG SCH (10:24)
[2020-03-21] MEDS: AMINO AC/PROTEIN HYDR/WHEY PRO 11 GM/45 ML PKT GT SCH ×2 (10:24→18:08)
[2020-03-21] MEDS: NYSTATIN CREAM 15 GM TP SCH ×2 (10:24→18:08)
--- NOTE | 2020-03-21 12:17 | PDOC PROGRESS REPORT ---
Subjective Progress Note for:: 03/21/20 Subjective:: Patient is doing well today. She has no complaints. Tolerating tube feeds. Reason For Visit: SQUAMOUS CELL CANCER Physical Exam Vital Signs: Temp Pulse Resp BP Pulse Ox 98.2 F 70 16 121/66 100 03/21/20 07:49 03/21/20 07:49 03/21/20 07:49 03/21/20 07:49 03/21/20 07:49 Intake & Output 03/20/20 03/21/20 03/22/20 06:59 06:59 06:59 Intake Total 844 814 Output Total 450 500 Balance 394 314 Weight 47.4 kg 46.5 kg General appearance: PRESENT: no acute distress, cooperative Neck exam: PRESENT: tracheostomy Respiratory exam: PRESENT: unlabored. ABSENT: accessory muscle use, retraction Musculoskeletal exam: ABSENT: ambulatory Neurological exam: PRESENT: alert, awake Psychiatric exam: ABSENT: agitated, anxious Focused psych exam: ABSENT: pressured speech Results Laboratory Results: 03/18/20 05:11 03/18/20 05:11 Assessment and Plan - Diagnosis (1) Squamous cell carcinoma of pharynx Is this a current diagnosis for this admission?: Yes (2) Status post trachelectomy Is this a current diagnosis for this admission?: Yes (3) Longstanding persistent atrial fibrillation Is this a current diagnosis for this admission?: Yes (4) Hypotension Is this a current diagnosis for this admission?: Yes (5) Chronic systolic CHF (congestive heart failure) Is this a current diagnosis for this admission?: Yes (6) Anxiety Is this a current diagnosis for this admission?: Yes - Plan Summary Summary: Will have patient saline. Continue patient on trach collar. Continue Toprol-XL and warfarin for patient's A. fib. Consults heme-onc. Apparently patient was receiving radiation therapy at [facility]. Palliative care consult. Patient has multiple comorbidities including her limited functional status, limited ambulation with AKA and BKA, cardiovascular issues and would likely be hospice appropriate. Further conversations to follow. I will resume tube feeds. Patient was receiving pivot 1.[address] her on Jevity and consults dietitian for tube feed recommendations. We will get some labs tomorrow morning. 03/18/2020 Patient was evaluated by Dr. Cook who has reached out to Dr. Mcduffie regarding radiation therapy continuation. Also noted recommendations of possibility of trying pembrolizumab or cetuximab for palliation subsequently after radiation is completed, if patient agrees. I have consulted palliative care to continue with conversations about palliation, hospice and goals of care planning which I have initiated myself. Continue toprol XL and digoxin for AFib. Reviewing patient's prior admissions, she was on Eliquis during her hospitalization in January. Uncertain when she was changed to warfarin. Heme-onc recommendations noted. I will discontinue warfarin and place patient on Eliquis. Continue trach care. Suctioning as needed for secretions. Trach collar. Hypotensive today so we will resume her Midodrine and give 1 L bolus. 03/19/2020 Patient has declined chemotherapy and she will be seen Dr. Mcduffie to start palliative radiation therapy. Discussed with patient's nurse who states that patient has not required frequent tracheostomy suctioning and patient has been a ble to adequately perform only oral suctioning herself. Patient is stable. Patient's goal is to have enough palliative radiation to be able to swallow adequately once again. Patient will continue palliative radiation in the outpatient setting. COVID-19 test was negative on 03/10/2020 Patient currently ready for discharge and we are trying to coordinate discharge with [facility]. Discharge planning involved. 03/20/2020 Informed that [facility] requires repeat COVID-19 test within 7 days and as such patient was tested once again yesterday. Results are pending. Patient started on palliative radiation therapy yesterday with goal of improving her swallowing ability. She tolerated the radiation session well and has no complaints, soreness of the throat or mouth today. 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 I have started her on buspirone. She has declined chemotherapy. Her trach tube was switched out on 03/18/2020. Next replacement will be in 1 to 3 months. She has been doing well on trach collar connected to humidifier. Patient has not had frequent secretions from her trach tube and has only required routine trach care & routine infrequent suctioning. She only has some occasional oral secretions which she suctions out herself. We will continue to plan disposition to [facility] with discharge planning. Palliative radiation therapy can be continued outpatient. 03/21/2020 Patient tolerated another session of radiation therapy yesterday. She has no complaints of soreness in the mouth or throat. She is tolerating her tube feeds. Have adjusted of tube feeding amounts as well as her free water flushes. Prosource added as per recommendation of dietitian. Continue rest of plan as before. COVID-19 test result pending. Still awaiting for [facility] to accept patient back to facility. - Time Time Spent with patient: Less than 15 minutes
[2020-03-21] MEDS: MELATONIN 5 MG TABLET NG SCH (22:36)
[2020-03-21] MEDS: ATORVASTATIN CALCIUM 80 MG TABLET PEG SCH (22:36)
[2020-03-22] MEDS: ACETAMINOPHEN SOLN 325 MG/10.15 ML UDCUP PEG PRN ×3 (02:42→18:35)
[2020-03-22] MEDS: APIXABAN 5 MG TABLET PO SCH ×2 (05:28→18:37)
[2020-03-22] MEDS: PANTOPRAZOLE SODIUM 40 MG PACKET.DR NG SCH (05:30)
[2020-03-22] MEDS: NYSTATIN CREAM 15 GM TP SCH ×2 (10:37→18:36)
[2020-03-22] MEDS: DIGOXIN 0.125 MG TABLET PEG SCH (10:37)
[2020-03-22] MEDS: POTASSIUM CHLORIDE 20 MEQ PACKET PEG SCH (10:37)
[2020-03-22] MEDS: FAMOTIDINE 20 MG TABLET PEG SCH ×2 (10:37→22:34)
[2020-03-22] MEDS: DOCUSATE SODIUM 100 MG/10 ML UDC PEG SCH (10:38)
[2020-03-22] MEDS: PYRIDOXINE HCL 50 MG TABLET PEG SCH (10:38)
[2020-03-22] MEDS: METOPROLOL SUCCINATE 25 MG TAB.SR.24H PO SCH (10:38)
[2020-03-22] MEDS: AMINO AC/PROTEIN HYDR/WHEY PRO 11 GM/45 ML PKT GT SCH ×2 (10:38→18:36)
[2020-03-22] MEDS: MIDODRINE HCL 5 MG TABLET PEG SCH ×3 (10:38→18:36)
[2020-03-22] MEDS: CARBAMAZEPINE SUSP 200 MG/10 ML UDCUP PEG SCH ×2 (10:38→22:34)
[2020-03-22] MEDS: ASPIRIN 81 MG TABLET, CHEWABLE PEG SCH (10:38)
--- NOTE | 2020-03-22 13:25 | PDOC PROGRESS REPORT ---
Subjective Progress Note for:: 03/22/20 Subjective:: Patient is doing well. No complaints today. Reason For Visit: SQUAMOUS CELL CANCER Physical Exam Vital Signs: Temp Pulse Resp BP Pulse Ox 97.6 F 69 20 112/52 L 98 03/22/20 07:28 03/22/20 07:28 03/22/20 07:28 03/22/20 07:28 03/22/20 08:50 Intake & Output 03/21/20 03/22/20 03/23/20 06:59 06:59 06:59 Intake Total 814 1220 Output Total 500 2000 Balance 314 -780 Weight 46.5 kg 51.7 kg General appearance: PRESENT: no acute distress, cooperative Respiratory exam: PRESENT: unlabored Neurological exam: PRESENT: alert, awake Results Laboratory Results: 03/18/20 05:11 03/18/20 05:11 Assessment and Plan - Diagnosis (1) Squamous cell carcinoma of pharynx Is this a current diagnosis for this admission?: Yes (2) Status post trachelectomy Is this a current diagnosis for this admission?: Yes (3) Longstanding persistent atrial fibrillation Is this a current diagnosis for this admission?: Yes (4) Hypotension Is this a current diagnosis for this admission?: Yes (5) Chronic systolic CHF (congestive heart failure) Is this a current diagnosis for this admission?: Yes (6) Anxiety Is this a current diagnosis for this admission?: Yes - Plan Summary Summary: Will have patient saline. Continue patient on trach collar. Continue Toprol-XL and warfarin for patient's A. fib. Consults heme-onc. Apparently patient was receiving radiation therapy at [facility]. Palliative care consult. Patient has multiple comorbidities including her limited functional status, limited ambulation with AKA and BKA, cardiovascular issues and would likely be hospice appropriate. Further conversations to follow. I will resume tube feeds. Patient was receiving pivot 1.[address] her on Jevity and consults dietitian for tube feed recommendations. We will get some labs tomorrow morning. 03/18/2020 Patient was evaluated by Dr. Cook who has reached out to Dr. Mcduffie regarding radiation therapy continuation. Also noted recommendations of possibility of trying pembrolizumab or cetuximab for palliation subsequently after radiation is completed, if patient agrees. I have consulted palliative care to continue with conversations about palliation, hospice and goals of care planning which I have initiated myself. Continue toprol XL and digoxin for AFib. Reviewing patient's prior admissions, she was on Eliquis during her hospitalization in January. Uncertain when she was changed to warfarin. Heme-onc recommendations noted. I will discontinue warfarin and place patient on Eliquis. Continue trach care. Suctioning as needed for secretions. Trach collar. Hypotensive today so we will resume her Midodrine and give 1 L bolus. 03/19/2020 Patient has declined chemotherapy and she will be seen Dr. Mcduffie to start palliative radiation therapy. Discussed with patient's nurse who states that patient has not required frequent tracheostomy suctioning and patient has been able to adequately perform only oral suctioning herself. Patient is stable. Patient's goal is to have enough palliative radiation to be able to swallow adequately once again. Patient will continue palliative radiation in the outpatient setting. COVID-19 test was negative on 03/10/2020 Patient currently ready for discharge and we are trying to coordinate discharge with [facility]. Discharge planning involved. 03/20/2020 Informed that [facility] requires repeat COVID-19 test within 7 days and as such patient was tested once again yesterday. Results are pending. Patient started on palliative radiation therapy yesterday with goal of improving her swallowing ability. She tolerated the radiation session well and has no complaints, soreness of the throat or mouth today. 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 I have started her on buspirone. She has declined chemotherapy. Her trach tube was switched out on 03/18/2020. Next replacement will be in 1 to 3 months. She has been doing well on trach collar connected to humidifier. Patient has not had frequent secretions from her trach tube and has only required routine trach care & routine infrequent suctioning. She only has some occasional oral secretions which she suctions out herself. We will continue to plan disposition to [facility] with discharge planning. Palliative radiation therapy can be continued outpatient. 03/21/2020 Patient tolerated another session of radiation therapy yesterday. She has no complaints of soreness in the mouth or throat. She is tolerating her tube feeds. Have adjusted of tube feeding amounts as well as her free water flushes. Prosource added as per recommendation of dietitian. Continue rest of plan as before. COVID-19 test result pending. Still awaiting for [facility] patient back to facility. 03/22/2020 Patient is doing well. No issues today. COVID test results pending. - Time Time Spent with patient: Less than 15 minutes
[2020-03-22] MEDS: MELATONIN 5 MG TABLET NG SCH (22:34)
[2020-03-22] MEDS: ATORVASTATIN CALCIUM 80 MG TABLET PEG SCH (22:34)
[2020-03-23] MEDS: ACETAMINOPHEN SOLN 325 MG/10.15 ML UDCUP PEG PRN ×3 (02:20→14:16)
[2020-03-23] MEDS: PANTOPRAZOLE SODIUM 40 MG PACKET.DR NG SCH (05:15)
[2020-03-23] MEDS: APIXABAN 5 MG TABLET PO SCH ×2 (05:15→17:50)
[2020-03-23] MEDS: DOCUSATE SODIUM 100 MG/10 ML UDC PEG SCH (09:41)
[2020-03-23] MEDS: FAMOTIDINE 20 MG TABLET PEG SCH ×2 (09:44→21:47)
[2020-03-23] MEDS: POTASSIUM CHLORIDE 20 MEQ PACKET PEG SCH (09:44)
[2020-03-23] MEDS: DIGOXIN 0.125 MG TABLET PEG SCH (09:44)
[2020-03-23] MEDS: ASPIRIN 81 MG TABLET, CHEWABLE PEG SCH (09:44)
[2020-03-23] MEDS: PYRIDOXINE HCL 50 MG TABLET PEG SCH (09:44)
[2020-03-23] MEDS: MIDODRINE HCL 5 MG TABLET PEG SCH ×3 (09:44→17:50)
[2020-03-23] MEDS: METOPROLOL SUCCINATE 25 MG TAB.SR.24H PO SCH (09:44)
[2020-03-23] MEDS: CARBAMAZEPINE SUSP 200 MG/10 ML UDCUP PEG SCH ×2 (09:44→21:47)
[2020-03-23] MEDS: NYSTATIN CREAM 15 GM TP SCH ×2 (09:44→17:50)
[2020-03-23] MEDS: AMINO AC/PROTEIN HYDR/WHEY PRO 11 GM/45 ML PKT GT SCH ×2 (09:44→17:50)
--- NOTE | 2020-03-23 12:49 | PDOC PROGRESS REPORT ---
Subjective Subjective:: Patient has been picking at her skin on her forehead because she feels very anxious and is depressed. She was having a lot of bleeding from her scalp this morning requiring nurse to hold compression of the wound but still rebleeds. Reason For Visit: SQUAMOUS CELL CANCER Physical Exam Vital Signs: Temp Pulse Resp BP Pulse Ox 98.0 F 70 16 135/67 H 99 03/23/20 08:03 03/23/20 08:03 03/23/20 08:03 03/23/20 08:03 03/23/20 11:21 Intake & Output 03/22/20 03/23/20 03/24/20 06:59 06:59 06:59 Intake Total 1220 1270 440 Output Total 2000 750 Balance -780 520 440 Weight 51.7 kg 51.2 kg General appearance: PRESENT: no acute distress, cooperative Head exam: PRESENT: other - bleeding lacerations on scalp Neck exam: PRESENT: tracheostomy. ABSENT: JVD Respiratory exam: PRESENT: clear to auscultation olamide, tachypnea, unlabored. ABSENT: wheezes Cardiovascular exam: PRESENT: RRR, +S1, +S2. ABSENT: tachycardia GI/Abdominal exam: PRESENT: soft, other - PEG present. ABSENT: rebound, rigid, tenderness Neurological exam: PRESENT: alert, awake, oriented to person, oriented to place, oriented to time Results Laboratory Results: 03/18/20 05:11 03/18/20 05:11 Assessment and Plan - Diagnosis (1) Squamous cell carcinoma of pharynx Is this a current diagnosis for this admission?: Yes (2) Face lacerations Qualifiers: Encounter type: initial encounter Qualified Code(s): S01.81XA - Laceration without foreign body of other part of head, initial encounter Is this a current diagnosis for this admission?: Yes (3) Status post trachelectomy Is this a current diagnosis for this admission?: Yes (4) Longstanding persistent atrial fibrillation Is this a current diagnosis for this admission?: Yes (5) Hypotension Is this a current diagnosis for this admission?: Yes (6) Adjustment disorder with mixed anxiety and depressed mood Is this a current diagnosis for this admission?: Yes (7) Chronic systolic CHF (congestive heart failure) Is this a current diagnosis for this admission?: Yes - Plan Summary Summary: 65 year old female admitted as a back transfer from [facility]. Patient had initially presented to our emergency department on 03/10/2020 after being referred by her ENT provider for evaluation of stridor. CT of the neck revealed a mass in her right hypopharyngeal region. She was subsequently transferred to [facility] for further evaluation by ENT. At [facility], patient was taken to the OR on 03/11/2020 and a tracheostomy, direct laryngoscopy with thomas endoscopy and biopsy was performed. 6 cfd Shiley trach was placed. Passy-Elizabeth valve was placed. PET CT was obtained which demonstrated known parapharyngeal mass as well as multiple pulmonary nodules. Intraoperative biopsy was remarkable for invasive squamous cell carcinoma Stage iv with bilateral lung mets. Oncology was consulted who recommended against pursuing lung nodule biopsy and recommended palliative radiation therapy +/- DOAC chemotherapy outpatient. Patient started on tube feeds via G-tube. Her warfarin was resumed on 03/14. She was also started on Midodrine for hypotension. Has been tolerating tube feeds and sent back to [place]. Patient currently denies any shortness of breath but states that she would like radiation therapy in order to improve her swallowing. Will have patient saline. Continue patient on trach collar. Continue Toprol-XL and warfarin for patient's A. fib. Consults heme-onc. Apparently patient was receiving radiation therapy at [facility]. Palliative care consult. Patient has multiple comorbidities including her limited functional status, limited ambulation with AKA and BKA, cardiovascular issues and would likely be hospice appropriate. Further conversations to follow. I will resume tube feeds. Patient was receiving pivot 1.[address] her on Jevity and consults dietitian for tube feed recommendations. We will get some labs tomorrow morning. 03/18/2020 Patient was evaluated by Dr. Cook who has reached out to Dr. Mcduffie regarding radiation therapy continuation. Also noted recommendations of possibility of trying pembrolizumab or cetuximab for palliation subsequently after radiation is completed, if patient agrees. I have consulted palliative care to continue with conversations about palliation, hospice and goals of care planning which I have initiated myself. Continue toprol XL and digoxin for AFib. Reviewing patient's prior admissions, she was on Eliquis during her hospitalization in January. Uncertain when she was changed to warfarin. Heme-onc recommendations noted. I will discontinue warfarin and place patient on Eliquis. Continue trach care. Suctioning as needed for secretions. Trach collar. Hypotensive today so we will resume her Midodrine and give 1 L bolus. 03/19/2020 Patient has declined chemotherapy and she will be seen Dr. Mcduffie to start palliative radiation therapy. Discussed with patient's nurse who states that patient has not required frequent tracheostomy suctioning and patient has been able to adequately perform only oral suctioning herself. Patient is stable. Patient's goal is to have enough palliative radiation to be able to swallow adequately once again. Patient will continue palliative radiation in the outpatient setting. COVID-19 test was negative on 03/10/2020 Patient currently ready for discharge and we are trying to coordinate discharge with [facility]. Discharge planning involved. 03/20/2020 Informed that [facility] requires repeat COVID-19 test within 7 days and as such patient was tested once again yesterday. Results are pending. Patient started on palliative radiation therapy yesterday with goal of improving her swallowing ability. She tolerated the radiation session well and has no complaints, soreness of the throat or mouth today. 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 I have started her on buspirone. She has declined chemotherapy. Her trach tube was switched out on 03/18/2020. Next replacement will be in 1 to 3 months. She has been doing well on trach collar connected to humidifier. Patient has not had frequent secretions from her trach tube and has only required routine trach care & routine infrequent suctioning. She only has some occasional oral secretions which she suctions out herself. We will continue to plan disposition to [facility] with discharge planning. Palliative radiation therapy can be continued outpatient. 03/21/2020 Patient tolerated another session of radiation therapy yesterday. She has no complaints of soreness in the mouth or throat. She is tolerating her tube feeds. Have adjusted of tube feeding amounts as well as her free water flushes. Prosource added as per recommendation of dietitian. Continue rest of plan as before. COVID-19 test result pending. Still awaiting for [facility] to accept patient back to facility. 03/22/2020 Patient is doing well. No issues today. COVID test results pending. 03/23/2020 Patient is clearly expressing signs of adjustment disorder secondary to her recent diagnosis of cancer with ability to swallow. I had started patient on buspirone for anxiety but I will add Celexa given ongoing depressed mood. Thrombin dressing pads will be applied to patient's lacerations to help achieve hemostasis. The wounds do not seem deep enough to require stitching at this point. Patient will go for her third session of radiation therapy today. Continue midodrine and all other meds including her Eliquis despite current bleeding. COVID-19 test negative. [facility] they will only take patient back once radiation therapy has been completed on Monday. - Time Time Spent with patient: 15-24 minutes
[2020-03-23] MEDS: BUSPIRONE HCL 10 MG TABLET PEG SCH ×2 (14:16→21:38)
[2020-03-23] MEDS: CITALOPRAM HYDROBROMIDE 20 MG TABLET PEG SCH (15:19)
[2020-03-23] MEDS: ATORVASTATIN CALCIUM 80 MG TABLET PEG SCH (21:37)
[2020-03-23] MEDS: OXYCODONE-ACETAMINOPHEN 5-325 MG TABLET PEG PRN (21:46)
[2020-03-23] MEDS: MELATONIN 5 MG TABLET NG SCH (21:46)
[2020-03-24] MEDS: OXYCODONE-ACETAMINOPHEN 5-325 MG TABLET PEG PRN ×3 (02:58→16:53)
[2020-03-24] MEDS: APIXABAN 5 MG TABLET PO SCH ×2 (05:43→16:59)
[2020-03-24] MEDS: PANTOPRAZOLE SODIUM 40 MG PACKET.DR NG SCH (05:43)
[2020-03-24] MEDS: BUSPIRONE HCL 10 MG TABLET PEG SCH ×3 (05:43→21:29)
[2020-03-24] MEDS: ACETAMINOPHEN SOLN 325 MG/10.15 ML UDCUP PEG PRN ×3 (05:49→20:26)
--- NOTE | 2020-03-24 08:05 | PDOC PROGRESS REPORT ---
Subjective Progress Note for:: 03/24/20 Subjective:: Patient states that she has been having headaches. She denies any other pain. She has 2 more days of radiation, then she will be able to go "home" to the SNF. She has no other concerns today. ROS: No dyspnea. 1 episode of vomiting yesterday, but no nausea. Reason For Visit: SQUAMOUS CELL CANCER Physical Exam Vital Signs: Temp Pulse Resp BP Pulse Ox 97.7 F 70 16 108/45 L 100 03/24/20 04:06 03/24/20 07:00 03/24/20 04:06 03/24/20 04:06 03/24/20 04:06 Intake & Output 03/23/20 03/24/20 03/25/20 06:59 06:59 06:59 Intake Total 1270 880 Output Total 750 450 Balance 520 430 Weight 51.2 kg 51.7 kg General appearance: PRESENT: no acute distress, thin, well-developed Head exam: PRESENT: normocephalic Neck exam: PRESENT: tracheostomy Respiratory exam: PRESENT: unlabored Extremities exam: PRESENT: other - Left AKA. ABSENT: pedal edema Neurological exam: PRESENT: alert, awake, oriented to person, oriented to place, oriented to time, oriented to situation Psychiatric exam: PRESENT: appropriate affect Skin exam: PRESENT: other - Open skin lesions. No significant change. Results Laboratory Results: 03/18/20 05:11 03/18/20 05:11 Assessment & Plan - Diagnosis (1) Longstanding persistent atrial fibrillation Is this a current diagnosis for this admission?: Yes (2) Squamous cell carcinoma of pharynx Is this a current diagnosis for this admission?: Yes Plan: Receiving palliative radiation therapy now. Agree with plans to transfer back to SNF once radiation has completed. She is a great candidate for Hospice on discharge. I discussed this with her and she is agreeable. Please call me with any questions or concerns. - Time Time Spent with patient: Less than 15 minutes
[2020-03-24] MEDS: MIDODRINE HCL 5 MG TABLET PEG SCH ×3 (09:40→16:59)
[2020-03-24] MEDS: POTASSIUM CHLORIDE 20 MEQ PACKET PEG SCH (09:40)
[2020-03-24] MEDS: METOPROLOL SUCCINATE 25 MG TAB.SR.24H PO SCH (09:40)
[2020-03-24] MEDS: DOCUSATE SODIUM 100 MG/10 ML UDC PEG SCH (09:40)
[2020-03-24] MEDS: PYRIDOXINE HCL 50 MG TABLET PEG SCH (09:40)
[2020-03-24] MEDS: FAMOTIDINE 20 MG TABLET PEG SCH ×2 (09:40→21:28)
[2020-03-24] MEDS: CITALOPRAM HYDROBROMIDE 20 MG TABLET PEG SCH (09:40)
[2020-03-24] MEDS: AMINO AC/PROTEIN HYDR/WHEY PRO 11 GM/45 ML PKT GT SCH ×2 (09:41→17:02)
[2020-03-24] MEDS: DIGOXIN 0.125 MG TABLET PEG SCH (09:41)
[2020-03-24] MEDS: ASPIRIN 81 MG TABLET, CHEWABLE PEG SCH (09:41)
[2020-03-24] MEDS: CARBAMAZEPINE SUSP 200 MG/10 ML UDCUP PEG SCH ×2 (09:42→21:28)
[2020-03-24] MEDS: NYSTATIN CREAM 15 GM TP SCH ×2 (09:43→16:59)
--- NOTE | 2020-03-24 11:55 | PDOC PROGRESS REPORT ---
Subjective Progress Note for:: 03/24/20 Subjective:: The patient is complaining of pain in the right side of her neck. She has a very flat affect. She has 2 more days of radiation therapy and then will be transferring to [facility]. Prognosis is poor. Reason For Visit: SQUAMOUS CELL CANCER Physical Exam Vital Signs: Temp Pulse Resp BP Pulse Ox 98.0 F 70 17 113/55 L 98 03/24/20 08:32 03/24/20 08:32 03/24/20 08:32 03/24/20 08:32 03/24/20 09:44 Intake & Output 03/23/20 03/24/20 03/25/20 06:59 06:59 06:59 Intake Total 1270 880 440 Output Total 750 450 Balance 520 430 440 Weight 51.2 kg 51.7 kg General appearance: PRESENT: cooperative, thin - Thin and frail 65-year-old female who looks older than her stated age Ear exam: PRESENT: normal external ear exam. ABSENT: bleeding, drainage Mouth exam: PRESENT: moist, tongue midline Neck exam: PRESENT: tenderness - There is a swollen area at the angle of the mandible on the right side. It is tender., tracheostomy - With Passy-Elizabeth valve and trach collar oxygen delivery Respiratory exam: PRESENT: clear to auscultation olamide - Anteriorly, symmetrical, tachypnea. ABSENT: rales, rhonchi, wheezes Cardiovascular exam: PRESENT: RRR, +S1, +S2 GI/Abdominal exam: PRESENT: diminished bowel sounds, soft. ABSENT: distended, guarding, tenderness Rectal exam: PRESENT: deferred Neurological exam: PRESENT: alert, awake, oriented to person, oriented to place, oriented to situation. ABSENT: altered Psychiatric exam: PRESENT: flat affect. ABSENT: agitated, anxious Skin exam: PRESENT: other - Excoriations on her nose. Patient keeps picking at these lesions. Results Laboratory Results: 03/18/20 05:11 03/18/20 05:11 Assessment and Plan - Diagnosis (1) Squamous cell carcinoma of pharynx Is this a current diagnosis for this admission?: Yes Plan: 03/24/2020 Completed palliative radiation then transferred to care home facility (2) Face lacerations Qualifiers: Encounter type: initial encounter Qualified Code(s): S01.81XA - Laceration without foreign body of other part of head, initial encounter Is this a current diagnosis for this admission?: Yes Plan: 03/24/2020 Topical antibiotic ointment twice daily (3) Status post trachelectomy Is this a current diagnosis for this admission?: Yes Plan: 03/24/2020 Supportive tracheostomy care (4) Hypotension Qualifiers: Hypotension type: unspecified hypotension type Qualified Code(s): I95.9 - Hypotension, unspecified Is this a current diagnosis for this admission?: Yes Plan: 03/24/2020 Continue midodrine (5) Longstanding persistent atrial fibrillation Is this a current diagnosis for this admission?: Yes Plan: 03/24/2020 Continue current medication regimen of digoxin and metoprolol as well as apix aban (6) Adjustment disorder with mixed anxiety and depressed mood Is this a current diagnosis for this admission?: Yes Plan: 03/24/2020 BuSpar, Tegretol citalopram (7) Chronic systolic CHF (congestive heart failure) Is this a current diagnosis for this admission?: Yes Plan: 03/24/2020 Currently stable. Continue current medication regimen (8) Neck pain on right side Is this a current diagnosis for this admission?: Yes Plan: 03/24/2020 Painful area on right side is consistent with her malignancy. Supportive care and pain medication. - Plan Summary Summary: 65 year old female admitted as a back transfer from [facility]. Patient had initially presented to our emergency department on 03/10/2020 after being referred by her ENT provider for evaluation of stridor. CT of the neck revealed a mass in her right hypopharyngeal region. She was subsequently transferred to [facility] for further evaluation by ENT. At [facility], patient was taken to the OR on 02/14 and a tracheostomy, direct laryngoscopy with thomas endoscopy and biopsy was performed. 6 cfd Shiley trach was placed. Passy-Elizabeth valve was placed. PET CT was obtained which demonstrated known parapharyngeal mass as well as multiple pulmonary nodules. Intraoperative biopsy was remarkable for invasive squamous cell carcinoma Stage iv with bilateral lung mets. Oncology was consulted who recommended against pursuing lung nodule biopsy and recommended palliative radiation therapy +/- DOAC chemotherapy outpatient. Patient started on tube feeds via G-tube. Her warfarin was resumed on 03/14. She was also started on Midodrine for hypotension. Has been tolerating tube feeds and sent back to [place]. Patient currently denies any shortness of breath but states that she would like radiation therapy in order to improve her swallowing. Will have patient saline. Continue patient on trach collar. Continue Toprol-XL and warfarin for patient's A. fib. Consults heme-onc. Apparently patient was receiving radiation therapy at [facility]. Palliative care consult. Patient has multiple comorbidities including her limited functional status, limited ambulation with AKA and BKA, cardiovascular issues and would likely be hospice appropriate. Further conversations to follow. I will resume tube feeds. Patient was receiving pivot 1.[address] her on Jevity and consults dietitian for tube feed recommendations. We will get some labs tomorrow morning. 03/18/2020 Patient was evaluated by Dr. Cook who has reached out to Dr. Mcduffie regarding radiation therapy continuation. Also noted recommendations of possibility of trying pembrolizumab or cetuximab for palliation subsequently after radiation is completed, if patient agrees. I have consulted palliative care to continue with conversations about palliation, hospice and goals of care planning which I have initiated myself. Continue toprol XL and digoxin for AFib. Reviewing patient's prior admissions, she was on Eliquis during her hospitalization in January. Uncertain when she was changed to warfarin. Heme-onc recommendations noted. I will discontinue warfarin and place patient on Eliquis. Continue trach care. Suctioning as needed for secretions. Trach collar. Hypotensive today so we will resume her Midodrine and give 1 L bolus. 03/19/2020 Patient has declined chemotherapy and she will be seen Dr. Mcduffie to start palliative radiation therapy. Discussed with patient's nurse who states that patient has not required frequent tracheostomy suctioning and patient has been able to adequately perform only oral suctioning herself. Patient is stable. Patient's goal is to have enough palliative radiation to be able to swallow adequately once again. Patient will continue palliative radiation in the outpatient setting. COVID-19 test was negative on 03/10/2020 Patient currently ready for discharge and we are trying to coordinate discharge with [facility]. Discharge planning involved. 03/20/2020 Informed that [facility] requires repeat COVID-19 test within 7 days and as such patient was tested once again yesterday. Results are pending. Patient started on palliative radiation therapy yesterday with goal of improving her swallowing ability. She tolerated the radiation session well and has no complaints, soreness of the throat or mouth today. 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 I have started her on buspirone. She has declined chemotherapy. Her trach tube was switched out on 03/18/2020. Next replacement will be in 1 to 3 months. She has been doing well on trach collar connected to humidifier. Patient has not had frequent secretions from her trach tube and has only required routine trach care & routine infrequent suctioning. She only has some occasional oral secretions which she suctions out herself. We will continue to plan disposition to [facility] with discharge planning. Palliative radiation therapy can be continued outpatient. 03/21/2020 Patient tolerated another session of radiation therapy yesterday. She has no complaints of soreness in the mouth or throat. She is tolerating her tube feeds. Have adjusted of tube feeding amounts as well as her free water flushes. Prosource added as per recommendation of dietitian. Continue rest of plan as before. COVID-19 test result pending. Still awaiting for [facility] to accept patient back to facility. 03/22/2020 Patient is doing well. No issues today. COVID test results pending. 03/23/2020 Patient is clearly expressing signs of adjustment disorder secondary to her recent diagnosis of cancer with ability to swallow. I had started patient on buspirone for anxiety but I will add Celexa given ongoing depressed mood. Thrombin dressing pads will be applied to patient's lacerations to help achieve hemostasis. The wounds do not seem deep enough to require stitching at this point. Patient will go for her third session of radiation therapy today. Continue midodrine and all other meds including her Eliquis despite current bleeding. COVID-19 test negative. [facility] states they will only take patient back once radiation therapy has been completed on Monday. - Time Time Spent with patient: 15-24 minutes Medications reviewed and adjusted accordingly: Yes Anticipated discharge: SNF Within: within 48 hours
[2020-03-24] MEDS: NYSTATIN/DEXAMETH/DIPHEN SUSP 120 ML PO PRN (16:54)
[2020-03-24] MEDS ORDERED: OXYCODONE-ACETAMINOPHEN 5-325 MG TABLET ONE (21:25)
[2020-03-24] MEDS: MELATONIN 5 MG TABLET NG SCH (21:28)
[2020-03-24] MEDS: ATORVASTATIN CALCIUM 80 MG TABLET PEG SCH (21:29)
[2020-03-25] MEDS: OXYCODONE-ACETAMINOPHEN 5-325 MG TABLET PEG PRN ×5 (02:07→21:44)
[2020-03-25] MEDS: PANTOPRAZOLE SODIUM 40 MG PACKET.DR NG SCH (05:31)
[2020-03-25] MEDS: APIXABAN 5 MG TABLET PO SCH ×2 (05:31→17:15)
[2020-03-25] MEDS: BUSPIRONE HCL 10 MG TABLET PEG SCH ×3 (05:31→21:44)
[2020-03-25] MEDS: ACETAMINOPHEN SOLN 325 MG/10.15 ML UDCUP PEG PRN ×2 (05:32→20:22)
--- NOTE | 2020-03-25 09:08 | PDOC PROGRESS REPORT ---
Subjective Progress Note for:: 03/25/20 Subjective:: Still with tenderness in the right neck. Excoriations on her face appear to be healing slightly. She still admits to picking at these lesions. Reason For Visit: SQUAMOUS CELL CANCER Physical Exam Vital Signs: Temp Pulse Resp BP Pulse Ox 97.4 F 70 17 135/94 H 100 03/25/20 08:10 03/25/20 08:10 03/25/20 08:10 03/25/20 08:10 03/25/20 08:10 Intake & Output 03/24/20 03/25/20 03/26/20 06:59 06:59 06:59 Intake Total 880 780 Output Total 450 300 Balance 430 480 Weight 51.7 kg 51.7 kg General appearance: PRESENT: cooperative, mild distress, well-developed Head exam: PRESENT: atraumatic, normocephalic Eye exam: PRESENT: conjunctiva pale. ABSENT: scleral icterus Ear exam: PRESENT: normal external ear exam. ABSENT: bleeding, drainage Neck exam: PRESENT: tenderness - Right side of the neck, tracheostomy Respiratory exam: PRESENT: clear to auscultation olamide, symmetrical, unlabored. ABSENT: rales, rhonchi, tachypnea, wheezes Cardiovascular exam: PRESENT: RRR, +S1, +S2. ABSENT: diastolic murmur, irregular rhythm, systolic murmur GI/Abdominal exam: PRESENT: normal bowel sounds, soft. ABSENT: distended, guarding, tenderness Rectal exam: PRESENT: deferred Extremities exam: ABSENT: pedal edema Neurological exam: PRESENT: alert, awake, oriented to person, oriented to place, oriented to time, oriented to situation. ABSENT: altered, CN II-XII grossly intact - Poor vision Psychiatric exam: PRESENT: flat affect. ABSENT: agitated, anxious Focused psych exam: ABSENT: delusional, paranoid, restlessness Skin exam: PRESENT: other - Excoriations on nose and face Results Laboratory Results: 03/18/20 05:11 03/18/20 05:11 Assessment and Plan - Diagnosis (1) Squamous cell carcinoma of pharynx Is this a current diagnosis for this admission?: Yes Plan: 03/24/2020 Completed palliative [facility] 03/25/2020 Patient should be having last radiation treatment tomorrow. Consider transfer to jail tomorrow or Monday depending on what time she finishes her radiation therapy. (2) Face lacerations Qualifiers: Encounter type: initial encounter Qualified Code(s): S01.81XA - Laceration without foreign body of other part of head, initial encounter Is this a current diagnosis for this admission?: Yes Plan: 03/24/2020 Topical antibiotic ointment twice daily 03/25/2020 The patient is picking at her skin. I did order topical Bactroban. Psychiatry saw her. There are multiple potential etiologies for this behavior. It might be secondary to medication however a more likely scenario is that it is secondary to the devastating cancer diagnosis. We will continue to monitor. (3) Status post trachelectomy Is this a current diagnosis for this admission?: Yes Plan: 03/24/2020 Supportive tracheostomy care 03/25/2020 Nursing reports that the tracheostomy stays pretty clean and there is limited tracheostomy care involved. (4) Hypotension Qualifiers: Hypotension type: unspecified hypotension type Qualified Code(s): I95.9 - Hypotension, unspecified Is this a current diagnosis for this admission?: Yes Plan: 03/24/2020 Continue midodrine 03/25/2020 This is a chronic condition and she has to have the antiarrhythmic medications for her fibrillation. The midodrine helps maintain good pressure while on these medications. No change in the treatment plan. (5) Longstanding persistent atrial fibrillation Is this a current diagnosis for this admission?: Yes Plan: 03/24/2020 Continue current medication regimen of digoxin and metoprolol as well as apixaban 03/25/2020 Good rate control (6) Adjustment disorder with mixed anxiety and depressed mood Is this a current diagnosis for this admission?: Yes Plan: 03/24/2020 BuSpar, Tegretol citalopram 03/25/2020 As noted above psychiatry saw the patient. I will see if any of the medications can cause the picking behavior. As noted above it is more likely a response to the overwhelming devastating diagnosis of metastatic cancer. (7) Chronic systolic CHF (congestive heart failure) Is this a current diagnosis for this admission?: Yes Plan: 03/24/2020 Currently stable. Continue current medication regimen 03/25/2020 No change in her regimen (8) Neck pain on right side Is this a current diagnosis for this admission?: Yes Plan: 03/24/2020 Painful area on right side is consistent with her malignancy. Supportive care and pain medication. 03/25/2020 The pain is less today. Analgesia is available. - Plan Summary Summary: 65 year old female admitted as a back transfer from [facility]. Patient had initially presented to our emergency department on 03/10/2020 after being referred by her ENT provider for evaluation of stridor. CT of the neck revealed a mass in her right hypopharyngeal region. She was subsequently transferred to [facility] for further evaluation by ENT. At [facility], patient was taken to the OR on 03/11/2020 and a tracheostomy, direct laryngoscopy with thomas endoscopy and biopsy was performed. 6 cfd Shiley trach was placed. Passy-Elizabeth valve was placed. PET CT was obtained which demonstrated known parapharyngeal mass as well as multiple pulmonary nodules. Intraoperative biopsy was remarkable for invasive squamous cell carcinoma Stage iv with bilateral lung mets. Oncology was consulted who recommended against pursuing lung nodule biopsy and recommended palliative radiation therapy +/- DOAC chemotherapy outpatient. Patient started on tube feeds via G-tube. Her warfarin was resumed on 03/14. She was also started on M idodrine for hypotension. Has been tolerating tube feeds and sent back to [place]. Patient currently denies any shortness of breath but states that she would like radiation therapy in order to improve her swallowing. Will have patient saline. Continue patient on trach collar. Continue Toprol-XL and warfarin for patient's A. fib. Consults heme-onc. Apparently patient was receiving radiation therapy at [facility]. Palliative care consult. Patient has multiple comorbidities including her limited functional status, limited ambulation with AKA and BKA, cardiovascular issues and would likely be hospice appropriate. Further conversations to follow. I will resume tube feeds. Patient was receiving pivot 1.[address] her on Jevity and consults dietitian for tube feed recommendations. We will get some labs tomorrow morning. 03/18/2020 Patient was evaluated by Dr. Cook who has reached out to Dr. Mcduffie regarding radiation therapy continuation. Also noted recommendations of possibility of trying pembrolizumab or cetuximab for palliation subsequently after radiation is completed, if patient agrees. I have consulted palliative care to continue with conversations about palliation, hospice and goals of care planning which I have initiated myself. Continue toprol XL and digoxin for AFib. Reviewing patient's prior admissions, she was on Eliquis during her hospitalization in January. Uncertain when she was changed to warfarin. Heme-onc recommendations noted. I will discontinue warfarin and place patient on Eliquis. Continue trach care. Suctioning as needed for secretions. Trach collar. Hypotensive today so we will resume her Midodrine and give 1 L bolus. 03/19/2020 Patient has declined chemotherapy and she will be seen Dr. Mcduffie to start palliative radiation therapy. Discussed with patient's nurse who states that patient has not required frequent tracheostomy suctioning and patient has been able to adequately perform only oral suctioning herself. Patient is stable. Patient's goal is to have enough palliative radiation to be able to swallow a dequately once again. Patient will continue palliative radiation in the outpatient setting. COVID-19 test was negative on 03/10/2020 Patient currently ready for discharge and we are trying to coordinate discharge with [facility]. Discharge planning involved. 03/20/2020 Informed that [facility] requires repeat COVID-19 test within 7 days and as such patient was tested once again yesterday. Results are pending. Patient started on palliative radiation therapy yesterday with goal of improving her swallowing ability. She tolerated the radiation session well and has no complaints, soreness of the throat or mouth today. 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 I have started her on buspirone. She has declined chemotherapy. Her trach tube was switched out on 03/18/2020. Next replacement will be in 1 to 3 months. She has been doing well on trach collar connected to humidifier. Patient has not had frequent secretions from her trach tube and has only required routine trach care & routine infrequent suctioning. She only has some occasional oral secretions which she suctions out herself. We will continue to plan disposition to [facility] with discharge planning. Palliative radiation therapy can be continued outpatient. 03/21/2020 Patient tolerated another session of radiation therapy yesterday. She has no complaints of soreness in the mouth or throat. She is tolerating her tube feeds. Have adjusted of tube feeding amounts as well as her free water flushes. Prosource added as per recommendation of dietitian. Continue rest of plan as before. COVID-19 test result pending. Still awaiting for [facility] to accept patient back to facility. 03/22/2020 Patient is doing well. No issues today. COVID test results pending. 03/23/2020 Patient is clearly expressing signs of adjustment disorder secondary to her recent diagnosis of cancer with ability to swallow. I had started patient on buspirone for anxiety but I will add Celexa given ongoing depressed mood. Thrombin dressing pads will be applied to patient's lacerations to help achieve hemostasis. The wounds do not seem deep enough to require stitching at this point. Patient will go for her third session of radiation therapy today. Continue midodrine and all other meds including her Eliquis despite current bleeding. COVID-19 test negative. [facility] states they will only take patient back once radiation therapy has been completed on Monday. - Time Time Spent with patient: 15-24 minutes Medications reviewed and adjusted accordingly: Yes Anticipated discharge: SNF Within: within 24 hours
[2020-03-25] MEDS: MUPIROCIN CALCIUM 2% CREAM 15 GM TP SCH ×2 (09:28→17:14)
[2020-03-25] MEDS: ASPIRIN 81 MG TABLET, CHEWABLE PEG SCH (09:28)
[2020-03-25] MEDS: POTASSIUM CHLORIDE 20 MEQ PACKET PEG SCH (09:29)
[2020-03-25] MEDS: DIGOXIN 0.125 MG TABLET PEG SCH (09:29)
[2020-03-25] MEDS: CITALOPRAM HYDROBROMIDE 20 MG TABLET PEG SCH (09:29)
[2020-03-25] MEDS: FAMOTIDINE 20 MG TABLET PEG SCH ×2 (09:29→21:44)
[2020-03-25] MEDS: DOCUSATE SODIUM 100 MG/10 ML UDC PEG SCH (09:29)
[2020-03-25] MEDS: CARBAMAZEPINE SUSP 200 MG/10 ML UDCUP PEG SCH ×2 (09:30→21:43)
[2020-03-25] MEDS: MIDODRINE HCL 5 MG TABLET PEG SCH ×3 (09:30→17:15)
[2020-03-25] MEDS: AMINO AC/PROTEIN HYDR/WHEY PRO 11 GM/45 ML PKT GT SCH ×2 (09:30→17:15)
[2020-03-25] MEDS: METOPROLOL SUCCINATE 25 MG TAB.SR.24H PO SCH (09:30)
[2020-03-25] MEDS: PYRIDOXINE HCL 50 MG TABLET PEG SCH (09:31)
--- NOTE | 2020-03-25 14:47 | PSYCHOLOGICAL NOTE ---
Psych Note - Psych Note Date seen by psych provider: 03/24/20 Time seen by psych provider: 19:00 Psych Note: Reason for Consult: Depression Patient openly engages with clinician discussing finding out her new diagnosis of cancer. She discloses that she is taking it day by day. She identified 1 of the harder parts is not being able to be with family. Patient is unable to engage with iPad video conferencing due to her vision loss. She identifies wanting to just hold her grandchildren when talking to them. She confirms she will be going to SNF from the hospital however is unsure what will happen after then. Patient discuss her frustration in her recent picking of her scabs on her face. She reports that she is never had this issue before that she used to have "beautiful skin" and wishes she could stop picking. She does demonstrate insight into the fact that she used to be a smoker which could be contributing to this new maladaptive coping skill of picking. Patient is alert and orientated to person, place, time and circumstance. Mood is dysphoric with tearful affect. Patient denies suicidal and homicidal ideation. Delusions are absent and behaviors congruent with an intact reality based presentation ie organized and linear thought process. patient reports she is blind. Conversational speech is difficult to understand at time. Intellectual abilities appear to be within the average range. Attention and concentration are good. Insight, judgment, impulse control are fair. Clinician impression Acute stress- newly identified medical condition; currently palliative care Medication recommendations per [facility]'s contracted psychiatrist Dr. Ron PALM are as follows discontinue celexa Impression\\ plan patient is cleared from acute psychiatric services. Patient has just been identified with a medical condition with poor prognosis. She is currently in palliative care. She identifies that she would like assistance with her new picking habit however states that she is not interested in just taking "medications to take medications." Patient is still coming to terms with her new diagnosis which is complicated by her inability to visit with family members for comfort and support. Dr. Roque was consulted to care management of this patient; attending physicians in agreement with recommendations and disposition.
[2020-03-25] MEDS: MELATONIN 5 MG TABLET NG SCH (21:44)
[2020-03-25] MEDS: ATORVASTATIN CALCIUM 80 MG TABLET PEG SCH (21:44)
[2020-03-26] MEDS: BUSPIRONE HCL 10 MG TABLET PEG SCH ×3 (05:39→21:32)
[2020-03-26] MEDS: PANTOPRAZOLE SODIUM 40 MG PACKET.DR NG SCH (05:39)
[2020-03-26] MEDS: APIXABAN 5 MG TABLET PO SCH ×2 (05:40→17:51)
[2020-03-26] MEDS: OXYCODONE-ACETAMINOPHEN 5-325 MG TABLET PEG PRN ×4 (05:40→17:51)
[2020-03-26 06:03] LABS: HEMATOCRIT 30.4 % (36.0-47.0); HEMOGLOBIN 10.4 g/dL (12.0-15.5); MEAN CORPUSCULAR HEMOGLOBIN 33.3 pg (27.0-33.4); MEAN CORPUSCULAR HGB CONC 34.2 g/dL (32.0-36.0); MEAN CORPUSCULAR VOLUME 97 fl (80-97); PLATELET COUNT 274 10^3/uL (150-450); RED BLOOD COUNT 3.13 10^6/uL (3.72-5.28); RED CELL DISTRIBUTION WIDTH 14.3 % (11.5-14.0); WHITE BLOOD COUNT 7.6 10^3/uL (4.0-10.5)
[2020-03-26 06:21] LABS: ALBUMIN 3.5 g/dL (3.5-5.0); ALKALINE PHOSPHATASE 129 U/L (38-126); ANION GAP 10 (5-19); ASPARTATE AMINO TRANSFERASE 39 U/L (14-36); BILIRUBIN,DIRECT 0.1 mg/dL (0.0-0.4); BILIRUBIN,TOTAL 0.4 mg/dL (0.2-1.3); BLOOD UREA NITROGEN 17 mg/dL (7-20); CALCIUM 9.4 mg/dL (8.4-10.2); CARBON DIOXIDE 28 mmol/L (22-30); CHLORIDE 91 mmol/L (98-107); GLUCOSE 122 mg/dL (75-110); POTASSIUM 4.5 mmol/L (3.6-5.0); TOTAL PROTEIN 6.8 g/dL (6.3-8.2)
[2020-03-26] MEDS: ACETAMINOPHEN SOLN 325 MG/10.15 ML UDCUP PEG PRN ×2 (09:21→21:32)
[2020-03-26] MEDS: CARBAMAZEPINE SUSP 200 MG/10 ML UDCUP PEG SCH ×2 (09:23→21:31)
[2020-03-26] MEDS: DOCUSATE SODIUM 100 MG/10 ML UDC PEG SCH (09:23)
[2020-03-26] MEDS: AMINO AC/PROTEIN HYDR/WHEY PRO 11 GM/45 ML PKT GT SCH ×2 (09:24→17:50)
[2020-03-26] MEDS: POTASSIUM CHLORIDE 20 MEQ PACKET PEG SCH (09:24)
[2020-03-26] MEDS: MUPIROCIN CALCIUM 2% CREAM 15 GM TP SCH ×2 (09:24→17:50)
[2020-03-26] MEDS: MIDODRINE HCL 5 MG TABLET PEG SCH ×3 (09:25→17:50)
[2020-03-26] MEDS: METOPROLOL SUCCINATE 25 MG TAB.SR.24H PO SCH (09:25)
[2020-03-26] MEDS: FAMOTIDINE 20 MG TABLET PEG SCH ×2 (09:25→21:32)
[2020-03-26] MEDS: ASPIRIN 81 MG TABLET, CHEWABLE PEG SCH (09:25)
[2020-03-26] MEDS: CITALOPRAM HYDROBROMIDE 20 MG TABLET PEG SCH (09:25)
[2020-03-26] MEDS: PYRIDOXINE HCL 50 MG TABLET PEG SCH (09:25)
[2020-03-26] MEDS: DIGOXIN 0.125 MG TABLET PEG SCH (09:26)
--- NOTE | 2020-03-26 17:20 | PDOC PROGRESS REPORT ---
Subjective Progress Note for:: 03/26/20 Reason For Visit: SQUAMOUS CELL CANCER Physical Exam Vital Signs: Temp Pulse Resp BP Pulse Ox 97.6 F 71 16 138/50 H 100 03/26/20 15:58 03/26/20 15:58 03/26/20 15:58 03/26/20 15:58 03/26/20 16:05 Intake & Output 03/25/20 03/26/20 03/27/20 06:59 06:59 06:59 Intake Total 780 440 415 Output Total 300 Balance 480 440 415 Weight 51.7 kg 51 kg General appearance: PRESENT: no acute distress, cooperative, thin Head exam: PRESENT: atraumatic, normocephalic Mouth exam: PRESENT: moist, tongue midline Neck exam: PRESENT: tracheostomy Respiratory exam: PRESENT: clear to auscultation olamide - Anteriorly, symmetrical, unlabored. ABSENT: rales, rhonchi, tachypnea, wheezes Cardiovascular exam: PRESENT: RRR, +S1, +S2 GI/Abdominal exam: PRESENT: hypoactive bowel sounds, soft, other - PEG tube in place. ABSENT: distended, guarding, tenderness Rectal exam: PRESENT: deferred Neurological exam: PRESENT: alert, awake, oriented to person, oriented to place, oriented to situation. ABSENT: altered Psychiatric exam: PRESENT: flat affect. ABSENT: agitated, anxious Focused psych exam: ABSENT: delusional, paranoid, restlessness Skin exam: PRESENT: other - Corrugations on nose and face Results Laboratory Results: 03/26/20 05:06 03/26/20 05:06 03/26/20 03/26/20 05:06 05:06 WBC 7.6 RBC 3.13 L Hgb 10.4 L Hct 30.4 L MCV 97 MCH 33.3 MCHC 34.2 RDW 14.3 H Plt Count 274 Sodium 129.0 L Potassium 4.5 Chloride 91 L Carbon Dioxide 28 Anion Gap 10 BUN 17 Creatinine 0.29 L Est GFR ( Amer) > 60 Glucose 122 H Calcium 9.4 Magnesium 2.2 Total Bilirubin 0.4 AST 39 H Alkaline Phosphatase 129 H Total Protein 6.8 Albumin 3.5 Assessment and Plan - Diagnosis (1) Squamous cell carcinoma of pharynx Is this a current diagnosis for this admission?: Yes Plan: 03/24/2020 Completed palliative radiation then transferred to snf facility 03/25/2020 Patient should be having last radiation treatment tomorrow. Consider transfer to snf tomorrow or Monday depending on what time she finishes her radiation therapy. 03/26/2020 Last radiation treatment was yesterday. Unfortunately there has been a delay with her transfer to [facility]. They now were questioning the tracheostomy. This was reviewed by their nursing staff and the patient will be able to transfer as soon as their tracheostomy supply order arrives at the facility. Hopefully it will be tomorrow and if not Monday. (2) Face lacerations Qualifiers: Encounter type: initial encounter Qualified Code(s): S01.81XA - Laceration without foreign body of other part of head, initial encounter Is this a current diagnosis for this admission?: Yes Plan: 03/24/2020 Topical antibiotic ointment twice daily 03/25/2020 The patient is picking at her skin. I did order topical Bactroban. Psychiatry saw her. There are multiple potential etiologies for this behavior. It might be secondary to medication however a more likely scenario is that it is secondary to the devastating cancer diagnosis. We will continue to monitor. 03/26/2020 Continue topical antibiotic cream. I did look up the Celexa and this is not necessarily a known adverse effect. Please also see psychiatry note. (3) Status post trachelectomy Is this a current diagnosis for this admission?: Yes Plan: 03/24/2020 Supportive tracheostomy care 03/25/2020 Nursing reports that the tracheostomy stays pretty clean and there is limited tracheostomy care involved. 03/26/2020 Continues to perform her own tracheostomy care (4) Hypotension Qualifiers: Hypotension type: unspecified hypotension type Qualified Code(s): I95.9 - Hypotension, unspecified Is this a current diagnosis for this admission?: Yes Plan: 03/24/2020 Continue midodrine 03/25/2020 This is a chronic condition and she has to have the antiarrhythmic medications for her fibrillation. The midodrine helps maintain good pressure while on these medications. No change in the treatment plan. 03/26/2020 Continue midodrine (5) Longstanding persistent atrial fibrillation Is this a current diagnosis for this admission?: Yes Plan: 03/24/2020 Continue current medication regimen of digoxin and metoprolol as well as apixaban 03/25/2020 Good rate control 03/26/2020 Continue current regimen (6) Adjustment disorder with mixed anxiety and depressed mood Is this a current diagnosis for this admission?: Yes Plan: 03/24/2020 BuSpar, Tegretol citalopram 03/25/2020 As noted above psychiatry saw the patient. I will see if any of the medications can cause the picking behavior. As noted above it is more likely a response to the overwhelming devastating diagnosis of metastatic cancer. 03/26/2020 Continue current regimen. Adverse effects listed for citalopram do not indicate that it would be stimulating in her picking habit (7) Chronic systolic CHF (congestive heart failure) Is this a current diagnosis for this admission?: Yes Plan: 03/24/2020 Currently stable. Continue current medication regimen 03/25/2020 No change in her regimen 03/26/2020 Chronic and stable (8) Neck pain on right side Is this a current diagnosis for this admission?: Yes Plan: 03/24/2020 Painful area on right side is consistent with her malignancy. Supportive care and pain medication. 03/25/2020 The pain is less today. Analgesia is available. 03/26/2020 Secondary to malignancy - Plan Summary Summary: 65 year old female admitted as a back transfer from [facility] Patient had initially presented to our emergency department on 03/10/2020 after being referred by her ENT provider for evaluation of stridor. CT of the neck revealed a mass in her right hypopharyngeal region. She was subsequently transferred [facility] for further evaluation by [facility]NT. At [facility], patient was taken to the OR on 03/11/2020 and a tracheostomy, direct laryngoscopy with thomas endoscopy and biopsy was performed. 6 cfd Shiley trach was placed. Passy-Melbourne valve was placed. PET CT was obtained which demonstrated known parapharyngeal mass as well as multiple pulmonary nodules. Intraoperative biopsy was remarkable for invasive squamous cell carcinoma Stage iv with bilateral lung mets. Oncology was consulted who recommended against pursuing lung nodule biopsy and recommended palliative radiation therapy +/- DOAC chemotherapy outpatient. Patient started on tube feeds via G-tube. Her warfarin was resumed on 03/14. She was also started on Midodrine for hypotension. Has been tolerating tube feeds and sent back to [facility]. Patient currently denies any shortness of breath but states that she would like radiation therapy in order to improve her swallowing. Will have patient saline. Continue patient on trach collar. Continue Toprol-XL and warfarin for patient's A. fib. Consults heme-onc. Apparently patient was receiving radiation therapy at [facility]. Palliative care consult. Patient has multiple comorbidities including her limited functional status, limited ambulation with AKA and BKA, cardiovascular issues and would likely be hospice appropriate. Further conversations to follow. I will resume tube feeds. Patient was receiving pivot 1.[address] her on Jevity and consults dietitian for tube feed recommendations. We will get some labs tomorrow morning. 03/18/2020 Patient was evaluated by Dr. Cook who has reached out to Dr. Mcduffie regarding radiation therapy continuation. Also noted recommendations of possibility of trying pembrolizumab or cetuximab for palliation subsequently after radiation is completed, if patient agrees. I have consulted palliative care to continue with conversations about palliation , hospice and goals of care planning which I have initiated myself. Continue toprol XL and digoxin for AFib. Reviewing patient's prior admissions, she was on Eliquis during her hospitalization in January. Uncertain when she was changed to warfarin. Heme-onc recommendations noted. I will discontinue warfarin and place patient on Eliquis. Continue trach care. Suctioning as needed for secretions. Trach collar. Hypotensive today so we will resume her Midodrine and give 1 L bolus. 03/19/2020 Patient has declined chemotherapy and she will be seen Dr. Mcduffie to start palliative radiation therapy. Discussed with patient's nurse who states that patient has not required frequent tracheostomy suctioning and patient has been able to adequately perform only oral suctioning herself. Patient is stable. Patient's goal is to have enough palliative radiation to be able to swallow adequately once again. Patient will continue palliative radiation in the outpatient setting. COVID-19 test was negative on 03/10/2020 Patient currently ready for discharge and we are trying to coordinate discharge with [facility] Mendi[facility]. Discharge planning involved. 03/20/2020 Informed that [facility] Mendieta requires repeat COVID-19 test within 7 days and as such patient was tested once again yesterday. Results are pending. Patient started on palliative radiation therapy yesterday with goal of improving her swallowing ability. She tolerated the radiation session well and has no complaints, soreness of the throat or mouth today. 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 I have started her on buspirone. She has declined chemotherapy. Her trach tube was switched out on 03/18/2020. Next replacement will be in 1 to 3 months. She has been doing well on trach collar connected to humidifier. Patient has not had frequent secretions from her trach tube and has only required routine trach care & routine infrequent suctioning. She only has some occasional oral secretions which she suctions out herself. We will continue to plan disposition to [facility] with discharge planning. Palliative radiation therapy can be continued outpatient. 03/21/2020 Patient tolerated another session of radiation therapy yesterday. She has no complaints of soreness in the mouth or throat. She is tolerating her tube feeds. Have adjusted of tube feeding amounts as well as her free water flushes. Prosource added as per recommendation of dietitian. Continue rest of plan as before. COVID-19 test result pending. Still awaiting for [facility] to accept patient back to facility. 03/22/2020 Patient is doing well. No issues today. COVID test results pending. 03/23/2020 Patient is clearly expressing signs of adjustment disorder secondary to her recent diagnosis of cancer with ability to swallow. I had started patient on buspirone for anxiety but I will add Celexa given ongoing depressed mood. Thrombin dressing pads will be applied to patient's lacerations to help achieve hemostasis. The wounds do not seem deep enough to require stitching at this point. Patient will go for her third session of radiation therapy today. Continue midodrine and all other meds including her Eliquis despite current bleeding. COVID-19 test negative. [facility] states they will only take patient back once radiation therapy has been completed on Monday. - Time Time Spent with patient: Less than 15 minutes Medications reviewed and adjusted accordingly: Yes Anticipated discharge: SNF Within: when bed available
[2020-03-26] MEDS: MELATONIN 5 MG TABLET NG SCH (21:32)
[2020-03-26] MEDS: ATORVASTATIN CALCIUM 80 MG TABLET PEG SCH (21:32)
[2020-03-27] MEDS: OXYCODONE-ACETAMINOPHEN 5-325 MG TABLET PEG PRN ×5 (02:39→22:04)
[2020-03-27] MEDS: PANTOPRAZOLE SODIUM 40 MG PACKET.DR NG SCH (05:25)
[2020-03-27] MEDS: APIXABAN 5 MG TABLET PO SCH ×2 (05:25→17:17)
[2020-03-27] MEDS: BUSPIRONE HCL 10 MG TABLET PEG SCH ×3 (05:25→21:57)
[2020-03-27] MEDS: POTASSIUM CHLORIDE 20 MEQ PACKET PEG SCH (09:10)
[2020-03-27] MEDS: ASPIRIN 81 MG TABLET, CHEWABLE PEG SCH (09:10)
[2020-03-27] MEDS: DIGOXIN 0.125 MG TABLET PEG SCH (09:10)
[2020-03-27] MEDS: FAMOTIDINE 20 MG TABLET PEG SCH ×2 (09:10→21:56)
[2020-03-27] MEDS: METOPROLOL SUCCINATE 25 MG TAB.SR.24H PO SCH (09:10)
[2020-03-27] MEDS: MIDODRINE HCL 5 MG TABLET PEG SCH ×3 (09:10→17:17)
[2020-03-27] MEDS: AMINO AC/PROTEIN HYDR/WHEY PRO 11 GM/45 ML PKT GT SCH ×2 (09:11→17:17)
[2020-03-27] MEDS: CITALOPRAM HYDROBROMIDE 20 MG TABLET PEG SCH (09:11)
[2020-03-27] MEDS: DOCUSATE SODIUM 100 MG/10 ML UDC PEG SCH (09:12)
[2020-03-27] MEDS: PYRIDOXINE HCL 50 MG TABLET PEG SCH (09:12)
[2020-03-27] MEDS: MUPIROCIN CALCIUM 2% CREAM 15 GM TP SCH ×2 (09:12→17:17)
[2020-03-27] MEDS: NYSTATIN/DEXAMETH/DIPHEN SUSP 120 ML PO PRN (09:13)
[2020-03-27] MEDS: CARBAMAZEPINE SUSP 200 MG/10 ML UDCUP PEG SCH ×2 (09:13→21:54)
--- NOTE | 2020-03-27 12:43 | PDOC DISCHARGE SUMMARY ---
Impression - Admit/DC Date/PCP Admission Date/Primary Care Provider: 03/17/20 18:07 ALLIE PEARSON MD Discharge Date: 03/27/20 - Discharge Diagnosis (1) Squamous cell carcinoma of pharynx Is this a current diagnosis for this admission?: Yes (2) Face lacerations Is this a current diagnosis for this admission?: Yes (3) Status post trachelectomy Is this a current diagnosis for this admission?: Yes (4) Hypotension Is this a current diagnosis for this admission?: Yes (5) Longstanding persistent atrial fibrillation Is this a current diagnosis for this admission?: Yes (6) Adjustment disorder with mixed anxiety and depressed mood Is this a current diagnosis for this admission?: Yes (7) Chronic systolic CHF (congestive heart failure) Is this a current diagnosis for this admission?: Yes (8) Neck pain on right side Is this a current diagnosis for this admission?: Yes - Assessment Summary: 65 year old female admitted as a back transfer from [facility]. Patient had initially presented to our emergency department on 03/10/2020 after being referred by her ENT provider for evaluation of stridor. CT of the neck revealed a mass in her right hypopharyngeal region. She was subsequently transferred to [facility] for further evaluation by ENT. At [facility], patient was taken to the OR on 03/11/2020 and a tracheostomy, direct laryngoscopy with thomas endoscopy and biopsy was performed. 6 cfd Shiley trach was placed. Passy-[place] valve was placed. PET CT was obtained which demonstrated known parapharyngeal mass as well as multiple pulmonary nodules. Intraoperative biopsy was remarkable for invasive squamous cell carcinoma Stage iv with bilateral lung mets. Oncology was consulted who recommended against pursuing lung nodule biopsy and recommended palliative radiation therapy +/- DOAC chemotherapy outpatient. Patient started on tube feeds via G-tube. Her warfarin was resumed on 03/14. She was also started on Midodrine for hypotension. Has been tolerating tube feeds and sent back to [place]. Patient currently denies any shortness of breath but states that she would like radiation therapy in order to improve her swallowing. Will have patient saline. Continue patient on trach collar. Continue Toprol-XL and warfarin for patient's A. fib. Consults heme-onc. Apparently patient was receiving radiation therapy at [facility]. Palliative care consult. Patient has multiple comorbidities including her limited functional status, limited ambulation with AKA and BKA, cardiovascular issues and would likely be hospice appropriate. Further conversations to follow. I will resume tube feeds. Patient was receiving pivot 1.[address] her on Jevity and consults dietitian for tube feed recommendations. We will get some labs tomorrow morning. 03/18/2020 Patient was evaluated by Dr. Cook who has reached out to Dr. Mcduffie regarding radiation therapy continuation. Also noted recommendations of possibility of trying pembrolizumab or cetuximab for palliation subsequently after radiation is completed, if patient agrees. I have consulted palliative care to continue with conversations about palliation, hospice and goals of care planning which I have initiated myself. Continue toprol XL and digoxin for AFib. Reviewing patient's prior admissions, she was on Eliquis during her hospitalization in January. Uncertain when she was changed to warfarin. Heme-onc recommendations noted. I will discontinue warfarin and place patient on Eliquis. Continue trach care. Suctioning as needed for secretions. Trach collar. Hypotensive today so we will resume her Midodrine and give 1 L bolus. 03/19/2020 Patient has declined chemotherapy and she will be seen Dr. Mcduffie to start palliative radiation therapy. Discussed with patient's nurse who states that patient has not required frequent tracheostomy suctioning and patient has been able to adequately perform only oral suctioning herself. Patient is stable. Patient's goal is to have enough palliative radiation to be able to swallow adequately once again. Patient will continue palliative radiation in the outpatient setting. COVID-19 test was negative on 03/10/2020 Patient currently ready for discharge and we are trying to coordinate discharge with Danya Mendieta. Discharge planning involved. 03/20/2020 Informed that Danya Mendieta requires repeat COVID-19 test within 7 days and as such patient was tested once again yesterday. Results are pending. Patient started on palliative radiation therapy yesterday with goal of improving her swallowing ability. She tolerated the radiation session well and has no complaints, soreness of the throat or mouth today. 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 I have started her on buspirone. She has declined chemotherapy. Her trach tube was switched out on 03/18/2020. Next replacement will be in 1 to 3 months. She has been doing well on trach collar connected to humidifier. Patient has not had frequent secretions from her trach tube and has only required routine trach care & routine infrequent suctioning. She only has some occasional oral secretions which she suctions out herself. We will continue to plan disposition to [facility] with discharge planning. Palliative radiation therapy can be continued outpatient. 03/21/2020 Patient tolerated another session of radiation therapy yesterday. She has no complaints of soreness in the mouth or throat. She is tolerating her tube feeds. Have adjusted of tube feeding amounts as well as her free water flushes. Prosource added as per recommendation of dietitian. Continue rest of plan as before. COVID-19 test result pending. Still awaiting for [facility] to accept patient back to facility. 03/22/2020 Patient is doing well. No issues today. COVID test results pending. 03/23/2020 Patient is clearly expressing signs of adjustment disorder secondary to her recent diagnosis of cancer with ability to swallow. I had started patient on buspirone for anxiety but I will add Celexa given ongoing depressed mood. Thrombin dressing pads will be applied to patient's lacerations to help achieve hemostasis. The wounds do not seem deep enough to require stitching at this point. Patient will go for her third session of radiation therapy today. Continue midodrine and all other meds including her Eliquis despite current bleeding. COVID-19 test negative. [facility] states they will only take patient back once radiation therapy has been completed on Monday. - Additional Information Resuscitation Status: Full Code Discharge Diet: Tube Feeding (Comments) Discharge Activity: Activity As Tolerated Referrals: ALLIE PEARSON MD [Primary Care Provider] - Home Medications: Atorvastatin Calcium 80 mg GT QPM 10/25/14 Acetaminophen [Tylenol] 650 mg GT Q4HP PRN 01/21/20 Carbamazepine [Tegretol 200 mg Tablet] 200 mg GT BID 01/21/20 Melatonin [Melatonin 5 mg Tablet] 10.5 mg GT QHS 01/21/20 Multivitamin/Iron/Folic Acid [Centrum Complete Multivit Tab] 1 each GT DAILY 01/21/20 Aspirin [Aspirin 81 mg Chewable Tablet] 81 mg GT DAILY 03/17/20 Digoxin [Lanoxin 0.125 mg Tablet] 0.125 mg GT DAILY 03/17/20 Midodrine HCl [Proamatine 5 mg Tablet] 10 mg GT TID 03/17/20 Oxycodone HCl [Oxy-Ir 5 mg Tablet] 5 mg GT Q4HP PRN 03/17/20 Acetaminophen [Tylenol Soln 325 mg/10.15 ml Udcup] 650 mg PEG Q4HP PRN udc 03/27/20 Albuterol Sulfate [Ventolin 0.083% Neb 2.5 mg/3 mL Ampul] 2.5 mg NEB RTQ6HP PRN vial.neb 03/27/20 Amino AC/Protein Hydr/Whey Pro [Prosource Tf 11 gm Protein/45 ml Pkt] 45 ml GT BID liquid.pkt 03/27/20 Apixaban [Eliquis 5 mg Tablet] 5 mg PO Q12A tablet 03/27/20 Aspirin [Aspirin 81 mg Chewable Tablet] 81 mg PEG DAILY tab.chew 03/27/20 Atorvastatin Calcium [Lipitor 80 mg Tablet] 80 mg PEG QHS tablet 03/27/20 Benzocaine/Menthol [Chloraseptic Sore Throat Lozenge] 1 each BUCCAL Q4HP PRN lozenge 03/27/20 Buspirone HCl [Buspar 10 mg Tablet] 5 mg PEG Q8 tablet 03/27/20 Carbamazepine [Tegretol Susp 200 mg/10 ml Udcup] 200 mg PEG Q12 udc 03/27/20 Citalopram Hydrobromide [Celexa 20 mg Tablet] 10 mg PEG DAILY tablet 03/27/20 Digoxin [Lanoxin 0.125 mg Tablet] 0.125 mg PEG DAILY tablet 03/27/20 Docusate Sodium [Colace Udc 100 mg/10 ml Oral Soln] 100 mg PEG DAILY udc 03/27/20 Famotidine [Pepcid 20 mg Tablet] 20 mg PEG Q12 tablet 03/27/20 Mag Hydrox/Al Hydrox/Simeth [Maalox Plus Susp 30 Udcup] 15 ml PO Q6HP PRN udc 03/27/20 Melatonin [Melatonin 5 mg Tablet] 10 mg NG QHS tablet 03/27/20 Metoprolol Succinate [Toprol Xl 25 mg Tab.sr] 25 mg PO DAILY tab.sr.24h 03/27/20 Midodrine HCl [Proamatine 5 mg Tablet] 10 mg PEG TID tablet 03/27/20 Mupirocin Calcium [Bactroban 2% Cream 15 gm] 1 applic TP BID tube 03/27/20 Pantoprazole Sodium [Protonix [address] Packet] 40 mg NG Q6AM granpkt. 03/27/20 Potassium Chloride [Potassium Chloride 20 Meq Packet] 20 meq PEG DAILY packet 03/27/20 Pyridoxine HCl [Vitamin B-6 Tablet 50 mg] 100 mg PEG DAILY tablet 03/27/20 History of Present Illiness History of Present Illness: CRISTINE WATERMAN is a 65 year old female who is been admitted as a back transfer from [facility]. Patient had initially presented to our emergency department on 03/10/2020 after being referred by her ENT provider for evaluation of stridor. CT of the neck revealed a mass in her right hypopharyngeal region. She was subsequently transferred to [facility] for further evaluation by ENT. At [facility], patient was taken to the OR on 03/11/2020 and a tracheostomy, direct laryngoscopy with thomas endoscopy and biopsy was performed. 6 cfd Shiley trach was placed. Passy[place] valve was placed. PET CT was obtained which demonstrated known parapharyngeal mass as well as multiple pulmonary nodules. Intraoperative biopsy was remarkable for invasive squamous cell carcinoma. Oncology was consulted who recommended against pursuing lung nodule biopsy and recommended palliative radiation therapy +/- DOAC chemotherapy outpatient. Patient started on tube feeds via G-tube. Her warfarin was resumed on 03/14. She was also started on Midodrine for hypotension. Has been tolerating tube feeds and sent back to [place]. Patient currently denies any shortness of breath but states that she would like radiation therapy in order to improve her swallowing. Hospital Course Hospital Course: (1) Squamous cell carcinoma of pharynx Is this a current diagnosis for this admission?: Yes Plan: 03/24/2020 Completed palliative radiation then transferred to [facility] 03/25/2020 Patient should be having last radiation treatment tomorrow. Consider transfer to [facility] tomorrow or Monday depending on what time she finishes her radiation therapy. 03/26/2020 Last radiation treatment was yesterday. Unfortunately there has been a delay with her transfer to [facility]. They now were questioning the tracheostomy. This was reviewed by their nursing staff and the patient will be able to transfer as soon as their tracheostomy supply order arrives at the facility. Hopefully it will be tomorrow and if not Monday. (2) Face lacerations Qualifiers: Encounter type: initial encounter Qualified Code(s): S01.81XA - Laceration without foreign body of other part of head, initial encounter Is this a current diagnosis for this admission?: Yes Plan: 03/24/2020 Topical antibiotic ointment twice daily 03/25/2020 The patient is picking at her skin. I did order topical Bactroban. Psychiatry saw her. There are multiple potential etiologies for this behavior. It might be secondary to medication however a more likely scenario is that it is secondary to the devastating cancer diagnosis. We will continue to monitor. 03/26/2020 Continue topical antibiotic cream. I did look up the Celexa and this is not necessarily a known adverse effect. Please also see psychiatry note. (3) Status post trachelectomy Is this a current diagnosis for this admission?: Yes Plan: 03/24/2020 Supportive tracheostomy care 03/25/2020 Nursing reports that the tracheostomy stays pretty clean and there is limited tracheostomy care involved. 03/26/2020 Continues to perform her own tracheostomy care 03/27/2020 The patient corrected in the. This is unable to walk her on tracheostomy care per vision loss. She reports that there is not a lot of intervention needed by nursing. It appears that the tracheostomy stoma is well formed (4) Hypotension Qualifiers: Hypotension type: unspecified hypotension type Qualified Code(s): I95.9 - Hypotension, unspecified Is this a current diagnosis for this admission?: Yes Plan: 03/24/2020 Continue midodrine 03/25/2020 This is a chronic condition and she has to have the antiarrhythmic medications for her fibrillation. The midodrine helps maintain good pressure while on these medications. No change in the treatment plan. 03/26/2020 Continue midodrine (5) Longstanding persistent atrial fibrillation Is this a current diagnosis for this admission?: Yes Plan: 03/24/2020 Continue current medication regimen of digoxin and metoprolol as well as apixaban 03/25/2020 Good rate control 03/26/2020 Continue current regimen (6) Adjustment disorder with mixed anxiety and depressed mood Is this a current diagnosis for this admission?: Yes Plan: 03/24/2020 BuSpar, Tegretol citalopram 03/25/2020 As noted above psychiatry saw the patient. I will see if any of the medications can cause the picking behavior. As noted above it is more likely a response to the overwhelming devastating diagnosis of metastatic cancer. 03/26/2020 Continue current regimen. Adverse effects listed for citalopram do not indicate that it would be stimulating in her picking habit (7) Chronic systolic CHF (congestive heart failure) Is this a current diagnosis for this admission?: Yes Plan: 03/24/2020 Currently stable. Continue current medication regimen 03/25/2020 No change in her regimen 03/26/2020 Chronic and stable (8) Neck pain on right side Is this a current diagnosis for this admission?: Yes Plan: 03/24/2020 Painful area on right side is consistent with her malignancy. Supportive care and pain medication. 03/25/2020 The pain is less today. Analgesia is available. 03/26/2020 Secondary to malignancy Physical Exam Vital Signs: Temp Pulse Resp BP Pulse Ox 98.0 F 71 19 119/50 L 100 03/27/20 07:36 03/27/20 07:36 03/27/20 07:36 03/27/20 07:36 03/27/20 12:00 Intake & Output 03/26/20 03/27/20 03/28/20 06:59 06:59 06:59 Intake Total 440 830 240 Balance 440 830 240 Weight 51 kg 51.5 kg General appearance: PRESENT: no acute distress, cooperative, thin - Frail- appearing Ear exam: PRESENT: normal external ear exam. ABSENT: bleeding, drainage Neck exam: PRESENT: tracheostomy - With Passy-Elizabeth valve in place, other Respiratory exam: PRESENT: clear to auscultation olamide - Anterior, prolonged expiratory phas, symmetrical. ABSENT: accessory muscle use, tachypnea, wheezes Cardiovascular exam: PRESENT: RRR, +S1, +S2 GI/Abdominal exam: PRESENT: normal bowel sounds, soft, other - PEG tube. ABSENT: distended, guarding, tenderness Rectal exam: PRESENT: deferred Extremities exam: ABSENT: pedal edema Musculoskeletal exam: PRESENT: other - Previous muscle meds Neurological exam: PRESENT: alert, awake, oriented to person, oriented to place, oriented to situation. ABSENT: CN II-XII grossly intact - Severe vision loss Psychiatric exam: PRESENT: flat affect. ABSENT: agitated, anxious Focused psych exam: ABSENT: delusional, paranoid, restlessness Skin exam: PRESENT: dry, pallor, warm, other - Excoriations on his face (forehead and nose) Results Laboratory Results: WBC 7.6 10^3/uL (4.0-10.5) 03/26/20 05:06 RBC 3.13 10^6/uL (3.72-5.28) L 03/26/20 05:06 Hgb 10.4 g/dL (12.0-15.5) L 03/26/20 05:06 Hct 30.4 % (36.0-47.0) L 03/26/20 05:06 MCV 97 fl (80-97) 03/26/20 05:06 MCH 33.3 pg (27.0-33.4) 03/26/20 05:06 MCHC 34.2 g/dL (32.0-36.0) 03/26/20 05:06 RDW 14.3 % (11.5-14.0) H 03/26/20 05:06 Plt Count 274 10^3/uL (150-450) 03/26/20 05:06 Lymph % (Auto) 11.5 % (13-45) L 03/18/20 05:11 [place] % (Auto) 14.7 % (3-13) H 03/18/20 05:11 Eos % (Auto) 4.3 % (0-6) 03/18/20 05:11 Baso % (Auto) 0.6 % (0-2) 03/18/20 05:11 Absolute Neuts (auto) 3.9 10^3/uL (1.7-8.2) 03/18/20 05:11 Absolute Lymphs (auto) 0.6 10^3/uL (0.5-4.7) 03/18/20 05:11 Absolute Monos (auto) 0.8 10^3/uL (0.1-1.4) 03/18/20 05:11 Absolute Eos (auto) 0.2 10^3/uL (0.0-0.6) 03/18/20 05:11 Absolute Basos (auto) 0.0 10^3/uL (0.0-0.2) 03/18/20 05:11 Seg Neutrophils % 68.9 % (42-78) 03/18/20 05:11 PT 14.8 SEC (11.4-15.4) 03/18/20 05:11 INR 1.16 03/18/20 05:11 Sodium 129.0 mmol/L (137-145) L 03/26/20 05:06 Potassium 4.5 mmol/L (3.6-5.0) 03/26/20 05:06 Chloride 91 mmol/L (98-107) L 03/26/20 05:06 Carbon Dioxide 28 mmol/L (22-30) 03/26/20 05:06 Anion Gap 10 (5-19) 03/26/20 05:06 BUN 17 mg/dL (7-20) 03/26/20 05:06 Creatinine 0.29 mg/dL (0.52-1.25) L 03/26/20 05:06 Est GFR ( Amer) > 60 (>60) 03/26/20 05:06 Est GFR (MDRD) Non-Af > 60 (>60) 03/26/20 05:06 Glucose 122 mg/dL (75-110) H 03/26/20 05:06 POC Glucose 122 mg/dL (70-110) H 03/27/20 11:53 Calcium 9.4 mg/dL (8.4-10.2) 03/26/20 05:06 Magnesium 2.2 mg/dL (1.6-2.3) 03/26/20 05:06 Total Bilirubin 0.4 mg/dL (0.2-1.3) 03/26/20 05:06 Direct Bilirubin 0.1 mg/dL (0.0-0.4) 03/26/20 05:06 Neonat Total Bilirubin Not Reportable 03/26/20 05:06 Neonat Direct Bilirubin Not Reportable 03/26/20 05:06 Neonat Indirect Bili Not Reportable 03/26/20 05:06 AST 39 U/L (14-36) H 03/26/20 05:06 ALT 27 U/L (<35) 03/26/20 05:06 Alkaline Phosphatase 129 U/L (38-126) H 03/26/20 05:06 Total Protein 6.8 g/dL (6.3-8.2) 03/26/20 05:06 Albumin 3.5 g/dL (3.5-5.0) 03/26/20 05:06 COVID-19 Source NASOPHARYNGEAL 03/19/20 14:40 COVID-19 (SARAH) NOT DETECTED 03/19/20 14:40 Plan Health Concerns: Squamous cell carcinoma of the pharynx. Currently with tracheostomy and PEG tube. Palliative radiation completed on Monday. Prognosis poor. Plan of Treatment: Transfer to [facility] facility. Continue tube feedings and medications. Continue tracheostomy care. Encourage physical and occupational therapy. Monitor nutritional status Goals: Patient may eventually require hospice level care. It depends on her response to the palliative radiation and tube feeds. Time Spent: Greater than 30 Minutes Stroke Is this a Stroke Patient?: No Acute Heart Failure - Is this a Heart Failure Patient?: No
[2020-03-27] MEDS: ACETAMINOPHEN SOLN 325 MG/10.15 ML UDCUP PEG PRN (20:21)
[2020-03-27] MEDS: ATORVASTATIN CALCIUM 80 MG TABLET PEG SCH (21:54)
[2020-03-27] MEDS: MELATONIN 5 MG TABLET NG SCH (21:55)
[2020-03-28] MEDS: OXYCODONE-ACETAMINOPHEN 5-325 MG TABLET PEG PRN ×3 (03:28→23:18)
[2020-03-28] MEDS: PANTOPRAZOLE SODIUM 40 MG PACKET.DR NG SCH (06:20)
[2020-03-28] MEDS: APIXABAN 5 MG TABLET PO SCH ×2 (06:21→18:06)
[2020-03-28] MEDS: BUSPIRONE HCL 10 MG TABLET PEG SCH ×3 (06:22→23:19)
[2020-03-28] MEDS: ACETAMINOPHEN SOLN 325 MG/10.15 ML UDCUP PEG PRN ×2 (06:39→10:32)
--- NOTE | 2020-03-28 08:51 | PDOC PROGRESS REPORT ---
Subjective Progress Note for:: 03/28/20 Subjective:: Patient is quite frustrated by the delays incurred in her transfer back to [facility]. Reason For Visit: SQUAMOUS CELL CANCER Physical Exam Vital Signs: Temp Pulse Resp BP Pulse Ox 97.2 F 69 16 123/62 97 03/28/20 07:51 03/28/20 07:51 03/28/20 07:51 03/28/20 07:51 03/28/20 08:00 Intake & Output 03/27/20 03/28/20 03/29/20 06:59 06:59 06:59 Intake Total 830 895 Balance 830 895 Weight 51.5 kg 52.6 kg General appearance: PRESENT: cooperative, mild distress, thin Neck exam: PRESENT: tracheostomy Respiratory exam: PRESENT: clear to auscultation olamide, unlabored. ABSENT: rales, rhonchi, tachypnea, wheezes Cardiovascular exam: PRESENT: RRR, +S1, +S2 GI/Abdominal exam: PRESENT: normal bowel sounds, soft, other - 2. ABSENT: distended, guarding, tenderness Extremities exam: ABSENT: pedal edema Neurological exam: PRESENT: alert, awake, oriented to person, oriented to place, oriented to time, oriented to situation. ABSENT: CN II-XII grossly intact - Patient walks Psychiatric exam: PRESENT: unusual affect - Affect reflects her frustration. ABSENT: agitated, anxious Results Laboratory Results: 03/26/20 05:06 03/26/20 05:06 Assessment and Plan - Diagnosis (1) Squamous cell carcinoma of pharynx Is this a current diagnosis for this admission?: Yes Plan: 03/24/2020 Completed palliative radiation then transferred to care home facility 03/25/2020 Patient should be having last radiation treatment tomorrow. Consider transfer to care home tomorrow or Monday depending on what time she finishes her r adiation therapy. 03/26/2020 Last radiation treatment was yesterday. Unfortunately there has been a delay with her transfer to [facility]. They now were questioning the tracheostomy. This was reviewed by their nursing staff and the patient will be able to transfer as soon as their tracheostomy supply order arrives at the facility. Hopefully it will be tomorrow and if not Monday. 03/27/2020 See transfer summary 03/28/2020 Currently stable. She did have what appeared to be slightly thicker secretions in her suction tubing. I will add some guaifenesin. (2) Face lacerations Qualifiers: Encounter type: initial encounter Qualified Code(s): S01.81XA - Laceration without foreign body of other part of head, initial encounter Is this a current diagnosis for this admission?: Yes Plan: 03/24/2020 Topical antibiotic ointment twice daily 03/25/2020 The patient is picking at her skin. I did order topical Bactroban. Psychiatry saw her. There are multiple potential etiologies for this behavior. It might be secondary to medication however a more likely scenario is that it is secondary to the devastating cancer diagnosis. We will continue to monitor. 03/26/2020 Continue topical antibiotic cream. I did look up the Celexa and this is not necessarily a known adverse effect. Please also see psychiatry note. 03/27/2020 See transfer summary 03/28/2020 Continue topical antibiotic therapy. Unfortunately the frustration with the delays in transfer may only make this worse. (3) Status post trachelectomy Is this a current diagnosis for this admission?: Yes Plan: 03/24/2020 Supportive tracheostomy care 03/25/2020 Nursing reports that the tracheostomy stays pretty clean and there is limited tracheostomy care involved. 03/26/2020 Continues to perform her own tracheostomy care 03/27/2020 See transfer summary 03/28/2020 Tracheostomy site appears clean. Passy-Elizabeth valve working well. (4) Hypotension Qualifiers: Hypotension type: unspecified hypotension type Qualified Code(s): I95.9 - Hypotension, unspecified Is this a current diagnosis for this admission?: Yes Plan: 03/24/2020 Continue midodrine 03/25/2020 This is a chronic condition and she has to have the antiarrhythmic medications for her fibrillation. The midodrine helps maintain good pressure while on these medications. No change in the treatment plan. 03/26/2020 Continue midodrine 03/27/2020 See transfer summary 03/28/2020 Continue midodrine. Encourage p.o. fluids to stay well-hydrated. (5) Longstanding persistent atrial fibrillation Is this a current diagnosis for this admission?: Yes Plan: 03/24/2020 Continue current medication regimen of digoxin and metoprolol as well as apixaban 03/25/2020 Good rate control 03/26/2020 Continue current regimen 03/27/2020 See transfer summary 03/28/2020 Digoxin, metoprolol and apixaban (6) Adjustment disorder with mixed anxiety and depressed mood Is this a current diagnosis for this admission?: Yes Plan: 03/24/2020 BuSpar, Tegretol citalopram 03/25/2020 As noted above psychiatry saw the patient. I will see if any of the medications can cause the picking behavior. As noted above it is more likely a response to the overwhelming devastating diagnosis of metastatic cancer. 03/26/2020 Continue current regimen. Adverse effects listed for citalopram do not indicate that it would be stimulating in her picking habit 03/27/2020 See transfer summary 03/28/2020 Delays in transfer are only making this worse. Continue to be supportive. (7) Chronic systolic CHF (congestive heart failure) Is this a current diagnosis for this admission?: Yes Plan: 03/24/2020 Currently stable. Continue current medication regimen 03/25/2020 No change in her regimen 03/26/2020 Chronic and stable 03/27/2020 See transfer summary 03/28/2020 The patient has been less than 1 L net positive balance daily. This is practically neutral considering insensible losses. Currently without evidence of heart failure. (8) Neck pain on right side Is this a current diagnosis for this admission?: Yes Plan: 03/24/2020 Painful area on right side is consistent with her malignancy. Supportive care and pain medication. 03/25/2020 The pain is less today. Analgesia is available. 03/26/2020 Secondary to malignancy 03/27/2020 See transfer summary 03/28/2020 Continue supportive care and pain control - Plan Summary Summary: 65 year old female admitted as a back transfer from [facility]. Patient had initially presented to our emergency department on 03/10/2020 after being referred by her ENT provider for evaluation of stridor. CT of the neck revealed a mass in her right hypopharyngeal region. She was subsequently transferred to [facility] for further evaluation by ENT. At [facility], patient was taken to the OR on 03/11/2020 and a tracheostomy, direct laryngoscopy with thomas endoscopy and biopsy was performed. 6 cfd Shiley trach was placed. Passy-[place] valve was placed. PET CT was obtained which demonstrated known parapharyngeal mass as well as multiple pulmonary nodules. Intraoperative biopsy was remarkable for invasive squamous cell carcinoma Stage iv with bilateral lung mets. Oncology was consulted who recommended against pursuing lung nodule biopsy and recommended palliative radiation therapy +/- DOAC chemotherapy outpatient. Patient started on tube feeds via G-tube. Her warfarin was resumed on 03/14. She was also started on Midodrine for hypotension. Has been tolerating tube feeds and sent back to [place]. Patient currently denies any shortness of breath but states that she wo uld like radiation therapy in order to improve her swallowing. Will have patient saline. Continue patient on trach collar. Continue Toprol-XL and warfarin for patient's A. fib. Consults heme-onc. Apparently patient was receiving radiation therapy at [facility]. Palliative care consult. Patient has multiple comorbidities including her limited functional status, limited ambulation with AKA and BKA, cardiovascular issues and would likely be hospice appropriate. Further conversations to anita greenberg. I will resume tube feeds. Patient was receiving pivot 1.[address] her on Jevity and consults dietitian for tube feed recommendations. We will get some labs tomorrow morning. 03/18/2020 Patient was evaluated by Dr. Cook who has reached out to Dr. Mcduffie regarding radiation therapy continuation. Also noted recommendations of possibility of trying pembrolizumab or cetuximab for palliation subsequently after radiation is completed, if patient agrees. I have consulted palliative care to continue with conversations about palliation, hospice and goals of care planning which I have initiated myself. Continue toprol XL and digoxin for AFib. Reviewing patient's prior admissions, she was on Eliquis during her hospitalization in January. Uncertain when she was changed to warfarin. Heme-onc recommendations noted. I will discontinue warfarin and place patient on Eliquis. Continue trach care. Suctioning as needed for secretions. Trach collar. Hypotensive today so we will resume her Midodrine and give 1 L bolus. 03/19/2020 Patient has declined chemotherapy and she will be seen Dr. Mcduffie to start palliative radiation therapy. Discussed with patient's nurse who states that patient has not required frequent tracheostomy suctioning and patient has been able to adequately perform only oral suctioning herself. Patient is stable. Patient's goal is to have enough palliative radiation to be able to swallow adequately once again. Patient will continue palliative radiation in the outpatient setting. COVID-19 test was negative on 03/10/2020 Patient currently ready for discharge and we are trying to coordinate discharge with [facility]. Discharge planning involved. 03/20/2020 Informed that [facility] requires repeat COVID-19 test within 7 days and as such patient was tested once again yesterday. Results are pending. Patient started on palliative radiation therapy yesterday with goal of improving her swallowing ability. She tolerated the radiation session well and has no complaints, soreness of the throat or mouth today. 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 I have started her on buspirone. She has declined chemotherapy. Her trach tube was switched out on 03/18/2020. Next replacement will be in 1 to 3 months. She has been doing well on trach collar connected to humidifier. Patient has not had frequent secr etions from her trach tube and has only required routine trach care & routine infrequent suctioning. She only has some occasional oral secretions which she suctions out herself. We will continue to plan disposition to [facility] with discharge planning. Palliative radiation therapy can be continued outpatient. 03/21/2020 Patient tolerated another session of radiation therapy yesterday. She has no complaints of soreness in the mouth or throat. She is tolerating her tube feeds. Have adjusted of tube feeding amounts as well as her free water flushes. Prosource added as per recommendation of dietitian. Continue rest of plan as before. COVID-19 test result pending. Still awaiting for [facility] to accept patient back to facility. 03/22/2020 Patient is doing well. No issues today. COVID test results pending. 03/23/2020 Patient is clearly expressing signs of adjustment disorder secondary to her recent diagnosis of cancer with ability to swallow. I had started patient on bu spirone for anxiety but I will add Celexa given ongoing depressed mood. Thrombin dressing pads will be applied to patient's lacerations to help achieve hemostasis. The wounds do not seem deep enough to require stitching at this point. Patient will go for her third session of radiation therapy today. Continue midodrine and all other meds including her Eliquis despite current bleeding. COVID-19 test negative. [facility] states they will only take patient back once radiation therapy has been completed on Monday. - Time Time Spent with patient: 15-24 minutes Medications reviewed and adjusted accordingly: Yes Anticipated discharge: SNF Within: when bed available - Patient should have transfer March 26
[2020-03-28] MEDS: CARBAMAZEPINE SUSP 200 MG/10 ML UDCUP PEG SCH ×2 (10:32→23:16)
[2020-03-28] MEDS: MIDODRINE HCL 5 MG TABLET PEG SCH ×3 (10:32→18:06)
[2020-03-28] MEDS: METOPROLOL SUCCINATE 25 MG TAB.SR.24H PO SCH (10:33)
[2020-03-28] MEDS: CITALOPRAM HYDROBROMIDE 20 MG TABLET PEG SCH (10:33)
[2020-03-28] MEDS: MUPIROCIN CALCIUM 2% CREAM 15 GM TP SCH ×2 (10:33→18:06)
[2020-03-28] MEDS: DOCUSATE SODIUM 100 MG/10 ML UDC PEG SCH (10:33)
[2020-03-28] MEDS: FAMOTIDINE 20 MG TABLET PEG SCH ×2 (10:33→23:17)
[2020-03-28] MEDS: POTASSIUM CHLORIDE 20 MEQ PACKET PEG SCH (10:33)
[2020-03-28] MEDS: ASPIRIN 81 MG TABLET, CHEWABLE PEG SCH (10:33)
[2020-03-28] MEDS: DIGOXIN 0.125 MG TABLET PEG SCH (10:33)
[2020-03-28] MEDS: AMINO AC/PROTEIN HYDR/WHEY PRO 11 GM/45 ML PKT GT SCH ×2 (10:34→18:06)
[2020-03-28] MEDS: PYRIDOXINE HCL 50 MG TABLET PEG SCH (10:34)
[2020-03-28] MEDS: GUAIFENESIN SYRP 200 MG/10 ML UDC PO SCH ×3 (13:27→23:16)
[2020-03-28] MEDS ORDERED: SODIUM CHLORIDE NASAL SPRAY 44 ML ONE (17:09)
[2020-03-28] MEDS ORDERED: FLUTICASONE NASAL SPRAY 50 MCG/SPRY 120 SPRAY/16 GM ONE (17:09)
[2020-03-28] MEDS: FLUTICASONE NASAL SPRAY 50 MCG/SPRY 120 SPRAY/16 GM NASL SCH (23:17)
[2020-03-28] MEDS: MELATONIN 5 MG TABLET NG SCH (23:17)
[2020-03-28] MEDS: SODIUM CHLORIDE NASAL SPRAY 44 ML NASL SCH (23:19)
[2020-03-28] MEDS: ATORVASTATIN CALCIUM 80 MG TABLET PEG SCH (23:19)
[2020-03-29] MEDS: ACETAMINOPHEN SOLN 325 MG/10.15 ML UDCUP PEG PRN ×4 (01:17→18:24)
[2020-03-29] MEDS: OXYCODONE-ACETAMINOPHEN 5-325 MG TABLET PEG PRN ×4 (03:14→23:15)
[2020-03-29] MEDS: BUSPIRONE HCL 10 MG TABLET PEG SCH ×3 (06:34→23:14)
[2020-03-29] MEDS: PANTOPRAZOLE SODIUM 40 MG PACKET.DR NG SCH (06:34)
[2020-03-29] MEDS: APIXABAN 5 MG TABLET PO SCH ×2 (06:35→18:16)
[2020-03-29] MEDS: SODIUM CHLORIDE NASAL SPRAY 44 ML NASL SCH ×4 (09:06→23:13)
[2020-03-29] MEDS: FLUTICASONE NASAL SPRAY 50 MCG/SPRY 120 SPRAY/16 GM NASL SCH ×2 (09:08→23:13)
[2020-03-29] MEDS: CARBAMAZEPINE SUSP 200 MG/10 ML UDCUP PEG SCH ×2 (09:09→23:16)
[2020-03-29] MEDS: DOCUSATE SODIUM 100 MG/10 ML UDC PEG SCH (09:10)
[2020-03-29] MEDS: AMINO AC/PROTEIN HYDR/WHEY PRO 11 GM/45 ML PKT GT SCH ×2 (09:10→18:18)
[2020-03-29] MEDS: PYRIDOXINE HCL 50 MG TABLET PEG SCH (09:10)
[2020-03-29] MEDS: GUAIFENESIN SYRP 200 MG/10 ML UDC PO SCH ×4 (09:11→23:14)
[2020-03-29] MEDS: POTASSIUM CHLORIDE 20 MEQ PACKET PEG SCH (09:11)
[2020-03-29] MEDS: FAMOTIDINE 20 MG TABLET PEG SCH ×2 (09:12→23:14)
[2020-03-29] MEDS: MIDODRINE HCL 5 MG TABLET PEG SCH ×3 (09:12→18:18)
[2020-03-29] MEDS: CITALOPRAM HYDROBROMIDE 20 MG TABLET PEG SCH (09:12)
[2020-03-29] MEDS: DIGOXIN 0.125 MG TABLET PEG SCH (09:13)
[2020-03-29] MEDS: ASPIRIN 81 MG TABLET, CHEWABLE PEG SCH (09:13)
[2020-03-29] MEDS: METOPROLOL SUCCINATE 25 MG TAB.SR.24H PO SCH (09:14)
[2020-03-29] MEDS: MUPIROCIN CALCIUM 2% CREAM 15 GM TP SCH ×2 (09:14→18:16)
--- NOTE | 2020-03-29 14:27 | PDOC PROGRESS REPORT ---
Subjective Progress Note for:: 03/29/20 Subjective:: The patient is napping. She complains of discomfort in the right metatarsal phalangeal joint. This has a classic appearance of gout but she denies a history of gout. She is awaiting transfer to [facility] which should occur tomorrow morning. Reason For Visit: SQUAMOUS CELL CANCER Physical Exam Vital Signs: Temp Pulse Resp BP Pulse Ox 97.5 F 69 20 141/61 H 99 03/29/20 10:55 03/29/20 10:55 03/29/20 10:55 03/29/20 10:55 03/29/20 12:00 Intake & Output 03/28/20 03/29/20 03/30/20 06:59 06:59 06:59 Intake Total 895 1095 340 Balance 895 1095 340 Weight 52.6 kg 50.1 kg General appearance: PRESENT: no acute distress, thin, well-developed Head exam: PRESENT: atraumatic, normocephalic Ear exam: PRESENT: normal external ear exam. ABSENT: bleeding, drainage Mouth exam: PRESENT: dry mucosa, tongue midline Neck exam: PRESENT: tracheostomy - With trach collar oxygen. ABSENT: full ROM Respiratory exam: PRESENT: clear to auscultation olamide - Anteriorly, prolonged expiratory phas, symmetrical, unlabored. ABSENT: rales, rhonchi, stridor, tachypnea Cardiovascular exam: PRESENT: RRR, +S1, +S2 GI/Abdominal exam: PRESENT: normal bowel sounds, soft. ABSENT: distended, guarding, tenderness Extremities exam: PRESENT: other - Monitor bunion on right foot. The convex area is slightly erythematous and there is a small punctate ulcer without drainage in the middle of the convexity. There is tenderness with movement of the joint.. ABSENT: pedal edema Musculoskeletal exam: PRESENT: other - Decreased muscle mass Neurological exam: PRESENT: alert - Once she is awake, awake - Awakens easily, oriented to person, oriented to place, oriented to time, oriented to situation, CN II-XII grossly intact Psychiatric exam: PRESENT: flat affect. ABSENT: agitated, anxious Focused psych exam: ABSENT: delusional, paranoid, restlessness Skin exam: PRESENT: other - Multiple excoriations face and back some on her chest. Results Laboratory Results: 03/26/20 05:06 06/11/20 05:06 Assessment and Plan - Diagnosis (1) Squamous cell carcinoma of pharynx Is this a current diagnosis for this admission?: Yes Plan: 03/24/2020 Completed palliative radiation then transferred to nursing home facility 03/25/2020 Patient should be having last radiation treatment tomorrow. Consider transfer to nursing home tomorrow or Monday depending on what time she finishes her radiation therapy. 03/26/2020 Last radiation treatment was yesterday. Unfortunately there has been a delay with her transfer to [facility]. They now were questioning the tracheostomy. This was reviewed by their nursing staff and the patient will be able to transfer as soon as their tracheostomy supply order arrives at the facility. Hopefully it will be tomorrow and if not Monday. 03/27/2020 See transfer summary 03/28/2020 Currently stable. She did have what appeared to be slightly thicker secretions in her suction tubing. I will add some guaifenesin. 03/29/2020 Completed course of palliative radiation. Ongoing management per oncology. (2) Face lacerations Qualifiers: Encounter type: initial encounter Qualified Code(s): S01.81XA - Laceration without foreign body of other part of head, initial encounter Is this a current diagnosis for this admission?: Yes Plan: 03/24/2020 Topical antibiotic ointment twice daily 03/25/2020 The patient is picking at her skin. I did order topical Bactroban. Psychiatry saw her. There are multiple potential etiologies for this behavior. It might be secondary to medication however a more likely scenario is that it is secondary to the devastating cancer diagnosis. We will continue to monitor. 03/26/2020 Continue topical antibiotic cream. I did look up the Celexa and this is not necessarily a known adverse effect. Please also see psychiatry note. 03/27/2020 See transfer summary 03/28/2020 Continue topical antibiotic therapy. Unfortunately the frustration with the delays in transfer may only make this worse. 03/29/2020 There did not appear to be any new excoriations. Continue topical antibiotic cream treatments. (3) Status post trachelectomy Is this a current diagnosis for this admission?: Yes Plan: 03/24/2020 Supportive tracheostomy care 03/25/2020 Nursing reports that the tracheostomy stays pretty clean and there is limited tracheostomy care involved. 03/26/2020 Continues to perform her own tracheostomy care 03/27/2020 See transfer summary 03/28/2020 Tracheostomy site appears clean. Passy-[place] valve working well. 03/29/[address] Passy-[place] valve in place. Trach collar oxygen delivery. Patient is stable. (4) Hypotension Qualifiers: Hypotension type: unspecified hypotension type Qualified Code(s): I95.9 - Hypotension, unspecified Is this a current diagnosis for this admission?: Yes Plan: 03/24/2020 Continue midodrine 03/25/2020 This is a chronic condition and she has to have the antiarrhythmic medications for her fibrillation. The midodrine helps maintain good pressure while on these medications. No change in the treatment plan. 03/26/2020 Continue midodrine 03/27/2020 See transfer summary 03/28/2020 Continue midodrine. Encourage p.o. fluids to stay well-hydrated. 03/29/2020 No further hypotensive blood pressures since yesterday at noon. (5) Longstanding persistent atrial fibrillation Is this a current diagnosis for this admission?: Yes Plan: 03/24/2020 Continue current medication regimen of digoxin and metoprolol as well as apixaban 03/25/2020 Good rate control 03/26/2020 Continue current regimen 03/27/2020 See transfer summary 03/28/2020 Digoxin, metoprolol and apixaban 03/29/2020 Changes at this time (6) Adjustment disorder with mixed anxiety and depressed mood Is this a current diagnosis for this admission?: Yes Plan: 03/24/2020 BuSpar, Tegretol citalopram 03/25/2020 As noted above psychiatry saw the patient. I will see if any of the medications can cause the picking behavior. As noted above it is more likely a response to the overwhelming devastating diagnosis of metastatic cancer. 03/26/2020 Continue current regimen. Adverse effects listed for citalopram do not indicate that it would be stimulating in her picking habit 03/27/2020 See transfer summary 03/28/2020 Delays in transfer are only making this worse. Continue to be supportive. 03/29/2020 Medications as above (7) Chronic systolic CHF (congestive heart failure) Is this a current diagnosis for this admission?: Yes Plan: 03/24/2020 Currently stable. Continue current medication regimen 03/25/2020 No change in her regimen 03/26/2020 Chronic and stable 03/27/2020 See transfer summary 03/28/2020 The patient has been less than 1 L net positive balance daily. This is practically neutral considering insensible losses. Currently without evidence of heart failure. 03/29/2020 Fluids have been continuously net positive and now greater than 1 L yesterday. Will monitor closely. After further review of the intake and output record the patient does not have any measured voids and so the net positive fluid balance is inaccurate. Will monitor for clinical signs of heart failure. There are none at this time. (8) Neck pain on right side Is this a current diagnosis for this admission?: Yes Plan: 03/24/2020 Painful area on right side is consistent with her malignancy. Supportive care and pain medication. 03/25/2020 The pain is less today. Analgesia is available. 03/26/2020 Secondary to malignancy 03/27/2020 See transfer summary 03/28/2020 Continue supportive care and pain control 03/29/2020 As above - Plan Summary Summary: 65 year old female admitted as a back transfer from [facility]. Patient had initially presented to our emergency department on 03/10/2020 after being referred by her ENT provider for evaluation of stridor. CT of the neck revealed a mass in her right hypopharyngeal region. She was subsequently transferred to [facility] for further evaluation by ENT. At [facility], patient was taken to the OR on 03/11/2020 and a tracheostomy, direct laryngoscopy with thomas endoscopy and biopsy was performed. 6 cfd Shiley trach was placed. Passy-[place] valve was placed. PET CT was obtained which demonstrated known parapharyngeal mass as well as multiple pulmonary nodules. Intraoperative biopsy was remarkable for invasive squamous cell carcinoma Stage iv with bilateral lung mets. Oncology was consulted who recommended against pursuing lung nodule biopsy and recommended palliative radiation therapy +/- DOAC chemotherapy outpatient. Patient started on tube feeds via G-tube. Her warfarin was resumed on 03/14. She was also started on Midodrine for hypotension. Has been tolerating tube feeds and sent back to [facility]. Patient currently denies any shortness of breath but states that she would like radiation therapy in order to improve her swallowing. Will have patient saline. Continue patient on trach collar. Continue Toprol-XL and warfarin for patient's A. fib. Consults heme-onc. Apparently patient was receiving radiation therapy at [facility]. Palliative care consult. Patient has multiple comorbidities including her limited functional status, limited ambulation with AKA and BKA, cardiovascular issues and would likely be hospice appropriate. Further conversations to follow. I will resume tube feeds. Patient was receiving pivot 1.[address] her on Jevity and consults dietitian for tube feed recommendations. We will get some labs tomorrow morning. 03/18/2020 Patient was evaluated by Dr. Cook who has reached out to Dr. Mcduffie regarding radiation therapy continuation. Also noted recommendations of possibility of trying pembrolizumab or cetuximab for palliation subsequently after radiation is completed, if patient agrees. I have consulted palliative care to continue with conversations about palliation, hospice and goals of care planning which I have initiated myself. Continue toprol XL and digoxin for AFib. Reviewing patient's prior admissions, she was on Eliquis during her hospitalization in January. Uncertain when she was changed to warfarin. Heme-onc recommendations noted. I will discontinue warfarin and place patient on Eliquis. Continue trach care. Suctioning as needed for secretions. Trach collar. Hypotensive today so we will resume her Midodrine and give 1 L bolus. 03/19/2020 Patient has declined chemotherapy and she will be seen Dr. Mcduffie to start palliative radiation therapy. Discussed with patient's nurse who states that patient has not required frequent tracheostomy suctioning and patient has been able to adequately perform only oral suctioning herself. Patient is stable. Patient's goal is to have enough palliative radiation to be able to swallow adequately once again. Patient will continue palliative radiation in the outpatient setting. COVID-19 test was negative on 03/10/2020 Patient currently ready for discharge and we are trying to coordinate discharge with [facility]. Discharge planning involved. 03/20/2020 Informed that [facility] requires repeat COVID-19 test within 7 days and as such patient was tested once again yesterday. Results are pending. Patient started on palliative radiation therapy yesterday with goal of improving her swallowing ability. She tolerated the radiation session well and has no complaints, soreness of the throat or mouth today. 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 I have started her on buspirone. She has declined chemotherapy. Her trach tube was switched out on 03/18/2020. Next replacement will be in 1 to 3 months. She has been doing well on trach collar connected to humidifier. Patient has not had frequent secretions from her trach tube and has only required routine trach care & routine infrequent suctioning. She only has some occasional oral secretions which she suctions out herself. We will continue to plan disposition to [facility] with discharge planning. Palliative radiation therapy can be continued outpatient. 03/21/2020 Patient tolerated another session of radiation therapy yesterday. She has no c omplaints of soreness in the mouth or throat. She is tolerating her tube feeds. Have adjusted of tube feeding amounts as well as her free water flushes. Prosource added as per recommendation of dietitian. Continue rest of plan as before. COVID-19 test result pending. Still awaiting for [facility] to accept patient back to facility. 03/22/2020 Patient is doing well. No issues today. COVID test results pending. 03/23/2020 Patient is clearly expressing signs of adjustment disorder secondary to her recent diagnosis of cancer with ability to swallow. I had started patient on buspirone for anxiety but I will add Celexa given ongoing depressed mood. Thrombin dressing pads will be applied to patient's lacerations to help achieve hemostasis. The wounds do not seem deep enough to require stitching at this point. Patient will go for her third session of radiation therapy today. Continue midodrine and all other meds including her Eliquis despite current bleeding. COVID-19 test negative. [facility] states they will only take patient back once radiation therapy has been completed on Monday. - Time Time Spent with patient: 15-24 minutes Medications reviewed and adjusted accordingly: Yes Anticipated discharge: SNF Within: within 24 hours
[2020-03-29] MEDS: ATORVASTATIN CALCIUM 80 MG TABLET PEG SCH (23:14)
[2020-03-29] MEDS: MELATONIN 5 MG TABLET NG SCH (23:15)
[2020-03-30] MEDS: ACETAMINOPHEN SOLN 325 MG/10.15 ML UDCUP PEG PRN ×2 (02:09→09:26)
[2020-03-30] MEDS: OXYCODONE-ACETAMINOPHEN 5-325 MG TABLET PEG PRN ×3 (03:17→23:39)
[2020-03-30] MEDS: BUSPIRONE HCL 10 MG TABLET PEG SCH ×3 (06:00→22:58)
[2020-03-30] MEDS: PANTOPRAZOLE SODIUM 40 MG PACKET.DR NG SCH (06:00)
[2020-03-30] MEDS: APIXABAN 5 MG TABLET PO SCH ×2 (06:01→17:12)
[2020-03-30] MEDS ORDERED: NORMAL SALINE 500 ML IV ONE (06:45)
[2020-03-30] MEDS: SODIUM CHLORIDE NASAL SPRAY 44 ML NASL SCH ×4 (08:30→23:05)
[2020-03-30] MEDS: METOPROLOL SUCCINATE 25 MG TAB.SR.24H PO SCH (09:18)
[2020-03-30] MEDS: MIDODRINE HCL 5 MG TABLET PEG SCH ×3 (09:26→17:11)
[2020-03-30] MEDS: DOCUSATE SODIUM 100 MG/10 ML UDC PEG SCH (09:27)
[2020-03-30] MEDS: FAMOTIDINE 20 MG TABLET PEG SCH ×2 (09:27→22:58)
[2020-03-30] MEDS: DIGOXIN 0.125 MG TABLET PEG SCH (09:27)
[2020-03-30] MEDS: CITALOPRAM HYDROBROMIDE 20 MG TABLET PEG SCH (09:27)
[2020-03-30] MEDS: CARBAMAZEPINE SUSP 200 MG/10 ML UDCUP PEG SCH ×2 (09:27→22:57)
[2020-03-30] MEDS: GUAIFENESIN SYRP 200 MG/10 ML UDC PO SCH ×4 (09:27→22:57)
[2020-03-30] MEDS: POTASSIUM CHLORIDE 20 MEQ PACKET PEG SCH (09:27)
[2020-03-30] MEDS: ASPIRIN 81 MG TABLET, CHEWABLE PEG SCH (09:27)
[2020-03-30] MEDS: PYRIDOXINE HCL 50 MG TABLET PEG SCH (09:28)
[2020-03-30] MEDS: AMINO AC/PROTEIN HYDR/WHEY PRO 11 GM/45 ML PKT GT SCH ×2 (09:28→17:12)
[2020-03-30] MEDS: FLUTICASONE NASAL SPRAY 50 MCG/SPRY 120 SPRAY/16 GM NASL SCH ×2 (09:28→23:04)
[2020-03-30] MEDS: MUPIROCIN CALCIUM 2% CREAM 15 GM TP SCH ×2 (09:28→17:11)
--- NOTE | 2020-03-30 13:21 | PDOC PROGRESS REPORT ---
Subjective Progress Note for:: 03/30/20 Subjective:: The patient's blood pressure was low early this morning. She received a fluid bolus. She states that she did not feel much different at the time. She says that she occasionally feels hot and then cold and attributes it to the room temperature. Reason For Visit: SQUAMOUS CELL CANCER Physical Exam Vital Signs: Temp Pulse Resp BP Pulse Ox 97.3 F 70 16 111/50 L 100 03/30/20 07:44 03/30/20 07:44 03/30/20 07:44 03/30/20 07:44 03/30/20 09:20 Intake & Output 03/29/20 03/30/20 03/31/20 06:59 06:59 06:59 Intake Total 1095 1200 Output Total 275 Balance 1095 925 Weight 50.1 kg 52.7 kg General appearance: PRESENT: no acute distress, cooperative, thin Eye exam: PRESENT: conjunctiva pale, other - Vision loss. ABSENT: scleral icterus Neck exam: PRESENT: tracheostomy Respiratory exam: PRESENT: clear to auscultation olamide - Anteriorly bilaterally, decreased breath sounds - At bases, symmetrical, unlabored. ABSENT: accessory muscle use, rales, rhonchi, tachypnea, wheezes Cardiovascular exam: PRESENT: RRR, +S1, +S2 GI/Abdominal exam: PRESENT: soft, other - PEG tube. ABSENT: distended, guarding, tenderness Rectal exam: PRESENT: deferred Neurological exam: PRESENT: alert, awake, oriented to person, oriented to place, oriented to situation. ABSENT: CN II-XII grossly intact - Severe vision loss Psychiatric exam: PRESENT: flat affect. ABSENT: agitated, anxious Skin exam: PRESENT: other - Excoriations Results Laboratory Results: 03/26/20 05:06 03/26/20 05:06 Assessment and Plan - Diagnosis (1) Squamous cell carcinoma of pharynx Is this a current diagnosis for this admission?: Yes Plan: 03/24/2020 Completed palliative radiation then transferred to senior living facility 03/25/2020 Patient should be having last radiation treatment tomorrow. Consider transfer to senior living tomorrow or Monday depending on what time she finishes her radiation therapy. 03/26/2020 Last radiation treatment was yesterday. Unfortunately there has been a delay with her transfer to [facility]. They now were questioning the tracheostomy. This was reviewed by their nursing staff and the patient will be able to transfer as soon as their tracheostomy supply order arrives at the facility. Hopefully it will be tomorrow and if not Monday. 03/27/2020 See transfer summary 03/28/2020 Currently stable. She did have what appeared to be slightly thicker secretions in her suction tubing. I will add some guaifenesin. 03/29/2020 Completed course of palliative radiation. Ongoing management per oncology. 03/30/2020 Awaiting transfer back to [facility]. Estimated transfer date is Monday. Prognosis for malignancy seems to be poor. (2) Face lacerations Qualifiers: Encounter type: initial encounter Qualified Code(s): S01.81XA - Laceration without foreign body of other part of head, initial encounter Is this a current diagnosis for this admission?: Yes Plan: 03/24/2020 Topical antibiotic ointment twice daily 03/25/2020 The patient is picking at her skin. I did order topical Bactroban. Psychiatry saw her. There are multiple potential etiologies for this behavior. It might be secondary to medication however a more likely scenario is that it is secondary to the devastating cancer diagnosis. We will continue to monitor. 03/26/2020 Continue topical antibiotic cream. I did look up the Celexa and this is not necessarily a known adverse effect. Please also see psychiatry note. 03/27/2020 See transfer summary 03/28/2020 Continue topical antibiotic therapy. Unfortunately the frustration with the delays in transfer may only make this worse. 03/29/2020 There did not appear to be any new excoriations. Continue topical antibiotic cream treatments. 03/30/2020 Continue Bactroban (3) Status post trachelectomy Is this a current diagnosis for this admission?: Yes Plan: 03/24/2020 Supportive tracheostomy care 03/25/2020 Nursing reports that the tracheostomy stays pretty clean and there is limited tracheostomy care involved. 03/26/2020 Continues to perform her own tracheostomy care 03/27/2020 See transfer summary 03/28/2020 Tracheostomy site appears clean. Passy-Elizabeth valve working well. 03/29/[address] Passy-Elizabeth valve in place. Trach collar oxygen delivery. Patient is stable. 03/30/2020 Working on decreasing oxygen by trach collar. Continue tube feeds and Passy- Elizabeth valve (4) Hypotension Qualifiers: Hypotension type: unspecified hypotension type Qualified Code(s): I95.9 - Hypotension, unspecified Is this a current diagnosis for this admission?: Yes Plan: 03/24/2020 Continue midodrine 03/25/2020 This is a chronic condition and she has to have the antiarrhythmic medications for her fibrillation. The midodrine helps maintain good pressure while on these medications. No change in the treatment plan. 03/26/2020 Continue midodrine 03/27/2020 See transfer summary 03/28/2020 Continue midodrine. Encourage p.o. fluids to stay well-hydrated. 03/29/2020 No further hypotensive blood pressures since yesterday at noon. 03/30/2020 The patient once again significant hypotension very early this morning. She received 1.5 L bolus of fluid. Transiently improved but her systolic pressure is once again in the high 90s. She is already on 10 mg of midodrine 3 times a day (5) Longstanding persistent atrial fibrillation Is this a current diagnosis for this admission?: Yes Plan: 03/24/2020 Continue current medication regimen of digoxin and metoprolol as well as apixaban 03/25/2020 Good rate control 03/26/2020 Continue current regimen 03/27/2020 See transfer summary 03/28/2020 Digoxin, metoprolol and apixaban 03/29/2020 No Changes at this time 03/30/2020 Continue current regimen. I did decrease the metoprolol slightly in hopes that it would improve her blood pressure (6) Adjustment disorder with mixed anxiety and depressed mood Is this a current diagnosis for this admission?: Yes Plan: 03/24/2020 BuSpar, Tegretol citalopram 03/25/2020 As noted above psychiatry saw the patient. I will see if any of the medications can cause the picking behavior. As noted above it is more likely a response to the overwhelming devastating diagnosis of metastatic cancer. 03/26/2020 Continue current regimen. Adverse effects listed for citalopram do not indicate that it would be stimulating in her picking habit 03/27/2020 See transfer summary 03/28/2020 Delays in transfer are only making this worse. Continue to be supportive. 03/29/2020 Medications as above (7) Chronic systolic CHF (congestive heart failure) Is this a current diagnosis for this admission?: Yes Plan: 03/24/2020 Currently stable. Continue current medication regimen 03/25/2020 No change in her regimen 03/26/2020 Chronic and stable 03/27/2020 See transfer summary 03/28/2020 The patient has been less than 1 L net positive balance daily. This is practically neutral considering insensible losses. Currently without evidence of heart failure. 03/29/2020 Fluids have been continuously net positive and now greater than 1 L yesterday. Will monitor closely. After further review of the intake and output record the patient does not have any measured voids and so the net positive fluid balance is inaccurate. Will monitor for clinical signs of heart failure. There are none at this time. 03/30/2020 The patient did receive a fluid bolus. Will need to monitor respiratory status. She may need diuretic but this will be difficult with normal blood pressures. (8) Neck pain on right side Is this a current diagnosis for this admission?: Yes Plan: 03/24/2020 Painful area on right side is consistent with her malignancy. Supportive care and pain medication. 03/25/2020 The pain is less today. Analgesia is available. 03/26/2020 Secondary to malignancy 03/27/2020 See transfer summary 03/28/2020 Continue supportive care and pain control 03/29/2020 As above - Plan Summary Summary: 65 year old female admitted as a back transfer from [facility]. Patient had initially presented to our emergency department on 03/10/2020 after being referred by her ENT provider for evaluation of stridor. CT of the neck revealed a mass in her right hypopharyngeal region. She was subsequently transferred to [facility] for further evaluation by ENT. At [facility], patient was taken to the OR on 03/11/2020 and a tracheostomy, direct laryngoscopy with thomas endoscopy and biopsy was performed. 6 cfd Shiley trach was placed. Passy-[place] valve was placed. PET CT was obtained which demonstrated known parapharyngeal mass as well as multiple pulmonary nodules. Intraoperative biopsy was remarkable for invasive squamous cell carcinoma Stage iv with bilateral lung mets. Oncology was consulted who recommended against pursuing lung nodule biopsy and recommended palliative radiation therapy +/- DOAC chemotherapy outpatient. Patient started on tube feeds via G-tube. Her warfarin was resumed on 03/14. She was also started on Midodrine for hypotension. Has been tolerating tube feeds and sent back to [facility]. Patient currently denies any shortness of breath but states that she would like radiation therapy in order to improve her swallowing. Will have patient saline. Continue patient on trach collar. Continue Toprol-XL and warfarin for patient's A. fib. Consults heme-onc. Apparently patient was receiving radiation therapy at [facility]. Palliative care consult. Patient has multiple comorbidities including her limited functional status, limited ambulation with AKA and BKA, cardiovascular issues and would likely be hospice appropriate. Further conversations to jay fofana. I will resume tube feeds. Patient was receiving pivot 1.[address] her on Jevity and consults dietitian for tube feed recommendations. We will get some labs tomorrow morning. 03/18/2020 Patient was evaluated by Dr. Cook who has reached out to Dr. Mcduffie regarding radiation therapy continuation. Also noted recommendations of possibility of trying pembrolizumab or cetuximab for palliation subsequently after radiation is completed, if patient agrees. I have consulted palliative care to continue with conversations about palliation, hospice and goals of care planning which I have initiated myself. Continue toprol XL and digoxin for AFib. Reviewing patient's prior admissions, she was on Eliquis during her hospitalization in January. Uncertain when she was changed to warfarin. Heme-onc recommendations noted. I will discontinue warfarin and place patient on Eliquis. Continue trach care. Suctioning as needed for secretions. Trach collar. Hypotensive today so we will resume her Midodrine and give 1 L bolus. 03/19/2020 Patient has declined chemotherapy and she will be seen Dr. Mcduffie to start palliative radiation therapy. Discussed with patient's nurse who states that patient has not required frequent tracheostomy suctioning and patient has been able to adequately perform only oral suctioning herself. Patient is stable. Patient's goal is to have enough palliative radiation to be able to swallow adequately once again. Patient will continue palliative radiation in the outpatient setting. COVID-19 test was negative on 03/10/2020 Patient currently ready for discharge and we are trying to coordinate discharge with [facility]. Discharge planning involved. 03/20/2020 Informed that [facility] requires repeat COVID-19 test within 7 days and as such patient was tested once again yesterday. Results are pending. Patient started on palliative radiation therapy yesterday with goal of improving her swallowing ability. She tolerated the radiation session well and has no complaints, soreness of the throat or mouth today. 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 I have started her on buspirone. She has declined chemotherapy. Her trach tube was switched out on 03/18/2020. Next replacement will be in 1 to 3 months. She has been doing well on trach collar connected to humidifier. Patient has not had frequent secre tions from her trach tube and has only required routine trach care & routine infrequent suctioning. She only has some occasional oral secretions which she suctions out herself. We will continue to plan disposition to [facility] with discharge planning. Palliative radiation therapy can be continued outpatient. 03/21/2020 Patient tolerated another session of radiation therapy yesterday. She has no complaints of soreness in the mouth or throat. She is tolerating her tube feeds. Have adjusted of tube feeding amounts as well as her free water flushes. Prosource added as per recommendation of dietitian. Continue rest of plan as before. COVID-19 test result pending. Still awaiting for [facility] to accept patient back to facility. 03/22/2020 Patient is doing well. No issues today. COVID test results pending. 03/23/2020 Patient is clearly expressing signs of adjustment disorder secondary to her recent diagnosis of cancer with ability to swallow. I had started patient on buspirone for anxiety but I will add Celexa given ongoing depressed mood. Thrombin dressing pads will be applied to patient's lacerations to help achieve hemostasis. The wounds do not seem deep enough to require stitching at this point. Patient will go for her third session of radiation therapy today. Continue midodrine and all other meds including her Eliquis despite current bleeding. COVID-19 test negative. [facility] states they will only take patient back once radiation therapy has been completed on Monday. 03/30/2020 Staff from [facility] came to the facility today to evaluate the patient. They require a compressor for her current oxygen needs. I will try to decrease the oxygen requirements if possible. Anticipated transfer date is now April 01. - Time Time Spent with patient: 15-24 minutes Medications reviewed and adjusted accordingly: Yes Anticipated discharge: SNF
[2020-03-30] MEDS: ATORVASTATIN CALCIUM 80 MG TABLET PEG SCH (22:57)
[2020-03-30] MEDS: MELATONIN 5 MG TABLET NG SCH (22:57)
[2020-03-30] MEDS: METOPROLOL TARTRATE 25 MG TABLET PEG SCH (22:58)
[2020-03-31] MEDS: APIXABAN 5 MG TABLET PO SCH ×2 (06:13→18:25)
[2020-03-31] MEDS: PANTOPRAZOLE SODIUM 40 MG PACKET.DR NG SCH (06:13)
[2020-03-31] MEDS: BUSPIRONE HCL 10 MG TABLET PEG SCH ×3 (06:13→21:41)
--- NOTE | 2020-03-31 08:58 | PDOC PROGRESS REPORT ---
Subjective Progress Note for:: 04/01/20 Subjective:: 65-year-old female transferred back from [facility]. Patient is initially presented to this emergency room on 03/10/2020 for evaluation of stridor. CT of the neck indicates mass in the right hypopharyngeal region. Subsequently transferred to [facility] for further evaluation by ENT and at [facility] she went to the OR on 03/11/2020 and had a tracheostomy, direct laryngoscopy with panendoscopy and biopsy. 6 CFD Shiley trach was placed. Passy-Rochester valve was placed. PET/CT was obtained which demonstrate known parapharyngeal mass as well as multiple pulmonary nodules. 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 Oncology was consulted the recommendation is palliative radiation with DO AC chemotherapy as an outpatient. Patient placed on the G-tube. Patient was also placed on warfarin. She was started on midodrine for hypotension. She was transferred back to [place]. On examination this morning she is doing well. Requesting to be a DNI. But she wants CPR if necessary. Plan is to discharge her to halfway tomorrow once all the supplies are available for trach management. No acute events in the last 24 hours. Afebrile. Reason For Visit: SQUAMOUS CELL CANCER Physical Exam Vital Signs: Temp Pulse Resp BP Pulse Ox 97.9 F 70 18 123/53 L 97 03/31/20 03:07 03/31/20 07:00 03/31/20 03:07 03/31/20 03:07 03/31/20 06:42 Intake & Output 03/30/20 03/31/20 04/01/20 06:59 06:59 06:59 Intake Total 1200 1520 Output Total 275 Balance 925 1520 Weight 52.7 kg 50.4 kg General appearance: PRESENT: no acute distress, disheveled Head exam: PRESENT: atraumatic Eye exam: PRESENT: PERRLA Mouth exam: PRESENT: dry mucosa, neck supple, other - Trach collar in place. Teeth exam: PRESENT: poor dentation Neck exam: PRESENT: tracheostomy, other - Trach collar in place.. ABSENT: carotid bruit, JVD, lymphadenopathy, thyromegaly Respiratory exam: PRESENT: decreased breath sounds Cardiovascular exam: PRESENT: RRR. ABSENT: diastolic murmur, rubs, systolic murmur GI/Abdominal exam: PRESENT: normal bowel sounds, soft, other - PEG Tube in place.. ABSENT: distended, guarding, mass, organolmegaly, rebound, tenderness Rectal exam: PRESENT: deferred Extremities exam: PRESENT: other - Patient has a left AKA present. Neurological exam: PRESENT: alert, awake, oriented to person, oriented to place, oriented to time, oriented to situation, CN II-XII grossly intact. ABSENT: motor sensory deficit Psychiatric exam: PRESENT: appropriate affect, normal mood. ABSENT: homicidal ideation, suicidal ideation Results Laboratory Results: 03/26/20 05:06 03/26/20 05:06 Assessment and Plan - Diagnosis (1) Squamous cell carcinoma of pharynx Is this a current diagnosis for this admission?: Yes Plan: 03/24/2020 Completed palliative radiation then transferred to halfway facility 03/25/2020 Patient should be having last radiation treatment tomorrow. Consider transfer to halfway tomorrow or Monday depending on what time she finishes her radiation therapy. 03/26/2020 Last radiation treatment was yesterday. Unfortunately there has been a delay with her transfer to [facility]. They now were questioning the trache ostomy. This was reviewed by their nursing staff and the patient will be able to transfer as soon as their tracheostomy supply order arrives at the facility. Hopefully it will be tomorrow and if not Monday. 03/27/2020 See transfer summary 03/28/2020 Currently stable. She did have what appeared to be slightly thicker secretions in her suction tubing. I will add some guaifenesin. 03/29/2020 Completed course of palliative radiation. Ongoing management per oncology. 03/30/2020 Awaiting transfer back to [facility]. Estimated transfer date is Monday. Prognosis for malignancy seems to be poor. 03/31/2020-plan is to discharge her to [facility] tomorrow. Prognosis is poor. CODE STATUS is DNI at this time. (2) Face lacerations Qualifiers: Encounter type: initial encounter Qualified Code(s): S01.81XA - Laceration without foreign body of other part of head, initial encounter Is this a current diagnosis for this admission?: Yes Plan: 03/24/2020 Topical antibiotic ointment twice daily 03/25/2020 The patient is picking at her skin. I did order topical Bactroban. Psychiatry saw her. There are multiple potential etiologies for this behavior. It might be secondary to medication however a more likely scenario is that it is secondary to the devastating cancer diagnosis. We will continue to monitor. 03/26/2020 Continue topical antibiotic cream. I did look up the Celexa and this is not necessarily a known adverse effect. Please also see psychiatry note. 03/27/2020 See transfer summary 03/28/2020 Continue topical antibiotic therapy. Unfortunately the frustration with the delays in transfer may only make this worse. 03/29/2020 There did not appear to be any new excoriations. Continue topical antibiotic cream treatments. 03/30/2020 Continue Bactroban 03/31/2020-patient is receiving Bactroban for her face lacerations plan is to continue the present management. (3) Status post trachelectomy Is this a current diagnosis for this admission?: Yes Plan: 03/24/2020 Supportive tracheostomy care 03/25/2020 Nursing reports that the tracheostomy stays pretty clean and there is limited t racheostomy care involved. 03/26/2020 Continues to perform her own tracheostomy care 03/27/2020 See transfer summary 03/28/2020 Tracheostomy site appears clean. Passy-Elizabeth valve working well. 03/29/[address] Passy-Rochester valve in place. Trach collar oxygen delivery. Patient is stable. 03/30/2020 Working on decreasing oxygen by trach collar. Continue tube feeds and Passy- [place] valve 03/31/2020-plan is to discharge her to [facility] tomorrow. Pulse ox is 97% [address] L[address] Patient is receiving tube feeds. (4) Hypotension Qualifiers: Hypotension type: unspecified hypotension type Qualified Code(s): I95.9 - Hypotension, unspecified Is this a current diagnosis for this admission?: Yes Plan: 03/24/2020 Continue midodrine 03/25/2020 This is a chronic condition and she has to have the antiarrhythmic medications for her fibrillation. The midodrine helps maintain good pressure while on these medications. No change in the treatment plan. 03/26/2020 Continue midodrine 03/27/2020 See transfer summary 03/28/2020 Continue midodrine. Encourage p.o. fluids to stay well-hydrated. 03/29/2020 No further hypotensive blood pressures since yesterday at noon. 03/30/2020 The patient once again significant hypotension very early this morning. She received 1.5 L bolus of fluid. Transiently improved but her systolic pressure is once again in the high 90s. She is already on 10 mg of midodrine 3 times a day 03/31/2020-blood pressure today is 123/53. Stable. Presently receiving Midodrin 10 mg p.o. 3 times a day plan is to continue the present management. (5) Longstanding persistent atrial fibrillation Is this a current diagnosis for this admission?: No Plan: 03/24/2020 Continue current medication regimen of digoxin and metoprolol as well as apixaban 03/25/2020 Good rate control 03/26/2020 Continue current regimen 03/27/2020 See transfer summary 03/28/2020 Digoxin, metoprolol and apixaban 03/29/2020 No Changes at this time 03/30/2020 Continue current regimen. I did decrease the metoprolol slightly in hopes that it would improve her blood pressure 03/31/20-heart rate is in the 70s on examination this morning rate controlled A. fib. Patient is receiving metoprolol at this time. Plan is to continue the present management. (6) Adjustment disorder with mixed anxiety and depressed mood Is this a current diagnosis for this admission?: No Plan: 03/24/2020 BuSpar, Tegretol citalopram 03/25/2020 As noted above psychiatry saw the patient. I will see if any of the medications can cause the picking behavior. As noted above it is more likely a response to the overwhelming devastating diagnosis of metastatic cancer. 03/26/2020 Continue current regimen. Adverse effects listed for citalopram do not indicate that it would be stimulating in her picking habit 03/27/2020 See transfer summary 03/28/2020 Delays in transfer are only making this worse. Continue to be supportive. 03/29/2020 Medications as above (7) Chronic systolic CHF (congestive heart failure) Is this a current diagnosis for this admission?: No Plan: 03/24/2020 Currently stable. Continue current medication regimen 03/25/2020 No change in her regimen 03/26/2020 Chronic and stable 03/27/2020 See transfer summary 03/28/2020 The patient has been less than 1 L net positive balance daily. This is practically neutral considering insensible losses. Currently without evidence of heart failure. 03/29/2020 Fluids have been continuously net positive and now greater than 1 L yesterday. Will monitor closely. After further review of the intake and output record the patient does not have any measured voids and so the net positive fluid balance is inaccurate. Will monitor for clinical signs of heart failure. There are none at this time. 03/30/2020 The patient did receive a fluid bolus. Will need to monitor respiratory status. She may need diuretic but this will be difficult with normal blood pressures. 03/31/2020-on examination not in distress. Not in fluid overload. Chest bilateral dose decreased no wheezing no crepitations no crackles at the bases present. (8) Neck pain on right side Is this a current diagnosis for this admission?: No Plan: 03/24/2020 Painful area on right side is consistent with her malignancy. Supportive care and pain medication. 03/25/2020 The pain is less today. Analgesia is available. 03/26/2020 Secondary to malignancy 03/27/2020 See transfer summary 03/28/2020 Continue supportive care and pain control 03/29/2020 As above - Plan Summary Summary: 65 year old female admitted as a back transfer from [facility]. Patient had initially presented to our emergency department on 03/10/2020 after being referred by her ENT provider for evaluation of stridor. CT of the neck revealed a mass in her right hypopharyngeal region. She was subsequently transferred to [facility] for further evaluation by ENT. At [facility], patient was taken to the OR on 03/11/2020 and a tracheostomy, direct laryngoscopy with thomas endoscopy and biopsy was performed. 6 cfd Shiley trach was placed. Passy-Elizabeth valve was placed. PET CT was obtained which demonstrated known parapharyngeal mass as well as multiple pulmonary nodules. Intraoperative biopsy was remarkable for invasive squamous cell carcinoma Stage iv with bilateral lung mets. Oncology was consulted who recommended against pursuing lung nodule biopsy and recommended palliative radiation therapy +/- DOAC chemotherapy outpatient. Patient started on tube feeds via G-tube. Her warfarin was resumed on 03/14. She was also started on Midodrine for hypotension. Has been tolerating tube feeds and sent back to [place]. Patient currently denies any shortness of breath but states that she would like radiation therapy in order to improve her swallowing. Will have patient saline. Continue patient on trach collar. Continue Toprol-XL and warfarin for patient's A. fib. Consults heme-onc. Apparently patient was receiving radiation therapy at [facility]. Palliative care consult. Patient has multiple comorbidities including her limited functional status, limited ambulation with AKA and BKA, cardiovascular issues and would likely be hospice appropriate. Further conversations to follow. I will resume tube feeds. Patient was receiving pivot 1.[address] her on Jevity and consults dietitian for tube feed recommendations. We will get some labs tomorrow morning. 03/18/2020 Patient was evaluated by Dr. Cook who has reached out to Dr. Mcduffie regarding radiation therapy continuation. Also noted recommendations of possibility of trying pembrolizumab or cetuximab for palliation subsequently after radiation is completed, if patient agrees. I have consulted palliative care to continue with conversations about palliation, hospice and goals of care planning which I have initiated myself. Continue toprol XL and digoxin for AFib. Reviewing patient's prior admissions, she was on Eliquis during her hospitalization in January. Uncertain when she was changed to warfarin. Heme-onc recommendations noted. I will discontinue warfarin and place patient on Eliquis. Continue trach care. Suctioning as needed for secretions. Trach collar. Hypotensive today so we will resume her Midodrine and give 1 L bolus. 03/19/2020 Patient has declined chemotherapy and she will be seen Dr. Mcduffie to start palliative radiation therapy. Discussed with patient's nurse who states that patient has not required frequent tracheostomy suctioning and patient has been able to adequately perform only oral suctioning herself. Patient is stable. Patient's goal is to have enough palliative radiation to be able to swallow adequately once again. Patient will continue palliative radiation in the outpatient setting. COVID-19 test was negative on 03/10/2020 Patient currently ready for discharge and we are trying to coordinate discharge with Danya Mendieta. Discharge planning involved. 03/20/2020 Informed that Danya Mendieta requires repeat COVID-19 test within 7 days and as such patient was tested once again yesterday. Results are pending. Patient started on palliative radiation therapy yesterday with goal of improving her swallowing ability. She tolerated the radiation session well and has no complaints, soreness of the throat or mouth today. 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 I have started her on buspirone. She has declined chemotherapy. Her trach tube was switched out on 03/18/2020. Next replacement will be in 1 to 3 months. She has been doing well on trach collar connected to humidifier. Patient has not had frequent secretions from her trach tube and has only required routine trach care & routine infrequent suctioning. She only has some occasional oral secretions which she suctions out herself. We will continue to plan disposition to [facility] with discharge planning. Palliative radiation therapy can be continued outpatient. 03/21/2020 Patient tolerated another session of radiation therapy yesterday. She has no complaints of soreness in the mouth or throat. She is tolerating her tube feeds. Have adjusted of tube feeding amounts as well as her free water flushes. Prosource added as per recommendation of dietitian. Continue rest of plan as before. COVID-19 test result pending. Still awaiting for [facility] to accept patient back to facility. 03/22/2020 Patient is doing well. No issues today. COVID test results pending. 03/23/2020 Patient is clearly expressing signs of adjustment disorder secondary to her recent diagnosis of cancer with ability to swallow. I had started patient on buspirone for anxiety but I will add Celexa given ongoing depressed mood. Thrombin dressing pads will be applied to patient's lacerations to help achieve hemostasis. The wounds do not seem deep enough to require stitching at this point. Patient will go for her third session of radiation therapy today. Continue midodrine and all other meds including her Eliquis despite current bleeding. COVID-19 test negative. [facility] states they will only take patient back once radiation therapy has been completed on Monday. 03/30/2020 Staff from [facility] came to the facility today to evaluate the patient. They require a compressor for her current oxygen needs. I will try to decrease the oxygen requirements if possible. Anticipated transfer date is now April 01.
[2020-03-31] MEDS: PYRIDOXINE HCL 50 MG TABLET PEG SCH (10:42)
[2020-03-31] MEDS: CARBAMAZEPINE SUSP 200 MG/10 ML UDCUP PEG SCH ×2 (10:43→21:51)
[2020-03-31] MEDS: MIDODRINE HCL 5 MG TABLET PEG SCH ×3 (10:44→18:24)
[2020-03-31] MEDS: GUAIFENESIN SYRP 200 MG/10 ML UDC PO SCH ×4 (10:44→21:51)
[2020-03-31] MEDS: POTASSIUM CHLORIDE 20 MEQ PACKET PEG SCH (10:44)
[2020-03-31] MEDS: OXYCODONE-ACETAMINOPHEN 5-325 MG TABLET PEG PRN ×2 (10:45→21:50)
[2020-03-31] MEDS: CITALOPRAM HYDROBROMIDE 20 MG TABLET PEG SCH (10:45)
[2020-03-31] MEDS: DIGOXIN 0.125 MG TABLET PEG SCH (10:46)
[2020-03-31] MEDS: AMINO AC/PROTEIN HYDR/WHEY PRO 11 GM/45 ML PKT GT SCH ×2 (10:46→18:26)
[2020-03-31] MEDS: DOCUSATE SODIUM 100 MG/10 ML UDC PEG SCH (10:47)
[2020-03-31] MEDS: FLUTICASONE NASAL SPRAY 50 MCG/SPRY 120 SPRAY/16 GM NASL SCH ×2 (10:47→21:51)
[2020-03-31] MEDS: ASPIRIN 81 MG TABLET, CHEWABLE PEG SCH (10:48)
[2020-03-31] MEDS: SODIUM CHLORIDE NASAL SPRAY 44 ML NASL SCH ×4 (10:49→21:51)
[2020-03-31] MEDS: MUPIROCIN CALCIUM 2% CREAM 15 GM TP SCH ×2 (10:50→18:17)
[2020-03-31] MEDS: METOPROLOL TARTRATE 25 MG TABLET PEG SCH ×2 (10:58→21:41)
[2020-03-31] MEDS: FAMOTIDINE 20 MG TABLET PEG SCH ×2 (10:58→21:41)
[2020-03-31] MEDS: ACETAMINOPHEN SOLN 325 MG/10.15 ML UDCUP PEG PRN (19:49)
[2020-03-31] MEDS: ATORVASTATIN CALCIUM 80 MG TABLET PEG SCH (21:41)
[2020-03-31] MEDS: MELATONIN 5 MG TABLET NG SCH (21:41)
[2020-04-01] MEDS: ACETAMINOPHEN SOLN 325 MG/10.15 ML UDCUP PEG PRN (03:17)
[2020-04-01 05:03] LABS: HEMATOCRIT 29.4 % (36.0-47.0); HEMOGLOBIN 10.1 g/dL (12.0-15.5); MEAN CORPUSCULAR HEMOGLOBIN 33.4 pg (27.0-33.4); MEAN CORPUSCULAR HGB CONC 34.5 g/dL (32.0-36.0); MEAN CORPUSCULAR VOLUME 97 fl (80-97); PLATELET COUNT 338 10^3/uL (150-450); RED BLOOD COUNT 3.04 10^6/uL (3.72-5.28); RED CELL DISTRIBUTION WIDTH 14.5 % (11.5-14.0); WHITE BLOOD COUNT 5.2 10^3/uL (4.0-10.5)
[2020-04-01] MEDS: APIXABAN 5 MG TABLET PO SCH (05:16)
[2020-04-01] MEDS: PANTOPRAZOLE SODIUM 40 MG PACKET.DR NG SCH (05:16)
[2020-04-01] MEDS: OXYCODONE-ACETAMINOPHEN 5-325 MG TABLET PEG PRN ×2 (05:17→10:50)
[2020-04-01] MEDS: BUSPIRONE HCL 10 MG TABLET PEG SCH (05:17)
[2020-04-01 05:26] LABS: ALBUMIN 3.4 g/dL (3.5-5.0); ALKALINE PHOSPHATASE 158 U/L (38-126); ANION GAP 10 (5-19); ASPARTATE AMINO TRANSFERASE 42 U/L (14-36); BILIRUBIN,DIRECT 0.1 mg/dL (0.0-0.4); BILIRUBIN,TOTAL 0.4 mg/dL (0.2-1.3); BLOOD UREA NITROGEN 16 mg/dL (7-20); CALCIUM 9.2 mg/dL (8.4-10.2); CARBON DIOXIDE 24 mmol/L (22-30); CHLORIDE 95 mmol/L (98-107); GLUCOSE 122 mg/dL (75-110); POTASSIUM 4.3 mmol/L (3.6-5.0); TOTAL PROTEIN 6.8 g/dL (6.3-8.2)
[2020-04-01 05:42] LABS: ABSOLUTE LYMPHOCYTES# (MANUAL) 0.3 10^3/uL (0.5-4.7); ABSOLUTE MONOCYTES # (MANUAL) 0.6 10^3/uL (0.1-1.4); BASOPHILS % (MANUAL) 0 % (0-2); EOSINOPHILS % (MANUAL) 0 % (0-6); LYMPHOCYTES % (MANUAL) 5 % (13-45); MONOCYTES % (MANUAL) 11 % (3-13); SEGMENTED NEUTROPHILS % (MAN) 83 % (42-78); TOTAL CELLS COUNTED 100
[2020-04-01 05:44] LABS: ANISOCYTOSIS SLIGHT
[2020-04-01 05:45] LABS: PLATELET COMMENT ADEQUATE; PLATELET LARGE PRESENT; TOXIC GRANULATION SLIGHT
[2020-04-01] MEDS: SODIUM CHLORIDE NASAL SPRAY 44 ML NASL SCH (08:50)
[2020-04-01] MEDS: GUAIFENESIN SYRP 200 MG/10 ML UDC PO SCH (10:46)
[2020-04-01] MEDS: DOCUSATE SODIUM 100 MG/10 ML UDC PEG SCH (10:46)
[2020-04-01] MEDS: METOPROLOL TARTRATE 25 MG TABLET PEG SCH (10:46)
[2020-04-01] MEDS: CARBAMAZEPINE SUSP 200 MG/10 ML UDCUP PEG SCH (10:47)
[2020-04-01] MEDS: POTASSIUM CHLORIDE 20 MEQ PACKET PEG SCH (10:47)
[2020-04-01] MEDS: MIDODRINE HCL 5 MG TABLET PEG SCH (10:47)
[2020-04-01] MEDS: FAMOTIDINE 20 MG TABLET PEG SCH (10:47)
[2020-04-01] MEDS: DIGOXIN 0.125 MG TABLET PEG SCH (10:47)
[2020-04-01] MEDS: CITALOPRAM HYDROBROMIDE 20 MG TABLET PEG SCH (10:47)
[2020-04-01] MEDS: ASPIRIN 81 MG TABLET, CHEWABLE PEG SCH (10:47)
[2020-04-01] MEDS: AMINO AC/PROTEIN HYDR/WHEY PRO 11 GM/45 ML PKT GT SCH (10:48)
[2020-04-01] MEDS: PYRIDOXINE HCL 50 MG TABLET PEG SCH (10:48)
--- NOTE | 2020-04-01 11:12 | PDOC TRANSFER SUMMARY ---
Impression - Admit/DC Date/PCP Admission Date/Primary Care Provider: 03/17/20 18:07 ALLIE PEARSON MD Discharge Date: 04/01/20 - Discharge Diagnosis (1) Squamous cell carcinoma of pharynx Is this a current diagnosis for this admission?: Yes (2) Face lacerations Is this a current diagnosis for this admission?: Yes (3) Status post trachelectomy Is this a current diagnosis for this admission?: Yes (4) Hypotension Is this a current diagnosis for this admission?: Yes (5) Longstanding persistent atrial fibrillation Is this a current diagnosis for this admission?: No (6) Adjustment disorder with mixed anxiety and depressed mood Is this a current diagnosis for this admission?: No (7) Chronic systolic CHF (congestive heart failure) Is this a current diagnosis for this admission?: No (8) Neck pain on right side Is this a current diagnosis for this admission?: No - Assessment Summary: 65 year old female admitted as a back transfer from [facility]. Patient had initially presented to our emergency department on 03/10/2020 after being referred by her ENT provider for evaluation of stridor. CT of the neck revealed a mass in her right hypopharyngeal region. She was subsequently transferred to [facility] for further evaluation by ENT. At [facility], patient was taken to the OR on 03/11/2020 and a tracheostomy, direct laryngoscopy with thomas endoscopy and biopsy was performed. 6 cfd Shiley trach was placed. Passy-Elizabeth valve was placed. PET CT was obtained which demonstrated known parapharyngeal mass as well as multiple pulmonary nodules. Intraoperative biopsy was remarkable for invasive squamous cell carcinoma Stage iv with bilateral lung mets. Oncology was consulted who recommended against pursuing lung nodule biopsy and recommended palliative radiation therapy +/- DOAC chemotherapy outpatient. Patient started on tube feeds via G-tube. Her warfarin was resumed on 03/14. She was also started on Midodrine for hypotension. Has been tolerating tube feeds and sent back to [place]. Patient currently denies any shortness of breath but states that she would like radiation therapy in order to improve her swallowing. Will have patient saline. Continue patient on trach collar. Continue Toprol-XL and warfarin for patient's A. fib. Consults heme-onc. Apparently patient was receiving radiation therapy at [facility]. Palliative care consult. Patient has multiple comorbidities including her limited functional status, limited ambulation with AKA and BKA, cardiovascular issues and would likely be hospice appropriate. Further conversations to follow. I will resume tube feeds. Patient was receiving pivot 1.[address] her on Jevity and consults dietitian for tube feed recommendations. We will get some labs tomorrow morning. 03/18/2020 Patient was evaluated by Dr. Cook who has reached out to Dr. Mcduffie regarding radiation therapy continuation. Also noted recommendations of possibility of trying pembrolizumab or cetuximab for palliation subsequently after radiation is completed, if patient agrees. I have consulted palliative care to continue with conversations about palliation, hospice and goals of care planning which I have initiated myself. Continue toprol XL and digoxin for AFib. Reviewing patient's prior admissions, she was on Eliquis during her hospitalization in January. Uncertain when she was changed to warfarin. Heme-onc recommendations noted. I will discontinue warfarin and place patient on Eliquis. Continue trach care. Suctioning as needed for secretions. Trach collar. Hypotensive today so we will resume her Midodrine and give 1 L bolus. 03/19/2020 Patient has declined chemotherapy and she will be seen Dr. Mcduffie to start palliative radiation therapy. Discussed with patient's nurse who states that patient has not required frequent tracheostomy suctioning and patient has been able to adequately perform only oral suctioning herself. Patient is stable. Patient's goal is to have enough palliative radiation to be able to swallow adequately once again. Patient will continue palliative radiation in the outpatient setting. COVID-19 test was negative on 03/10/2020 Patient currently ready for discharge and we are trying to coordinate discharge with Danya Mendieta. Discharge planning involved. 03/20/2020 Informed that Danya Mendieta requires repeat COVID-19 test within 7 days and as such patient was tested once again yesterday. Results are pending. Patient started on palliative radiation therapy yesterday with goal of improving her swallowing ability. She tolerated the radiation session well and has no complaints, soreness of the throat or mouth today. 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 I have started her on buspirone. She has declined chemotherapy. Her trach tube was switched out on 03/18/2020. Next replacement will be in 1 to 3 months. She has been doing well on trach collar connected to humidifier. Patient has not had frequent secretions from her trach tube and has only required routine trach care & routine infrequent suctioning. She only has some occasional oral secretions which she suctions out herself. We will continue to plan disposition to [facility] with discharge planning. Palliative radiation therapy can be continued outpatient. 03/21/2020 Patient tolerated another session of radiation therapy yesterday. She has no complaints of soreness in the mouth or throat. She is tolerating her tube feeds. Have adjusted of tube feeding amounts as well as her free water flushes. Prosource added as per recommendation of dietitian. Continue rest of plan as before. COVID-19 test result pending. Still awaiting for [facility] to accept patient back to facility. 03/22/2020 Patient is doing well. No issues today. COVID test results pending. 03/23/2020 Patient is clearly expressing signs of adjustment disorder secondary to her recent diagnosis of cancer with ability to swallow. I had started patient on buspirone for anxiety but I will add Celexa given ongoing depressed mood. Thrombin dressing pads will be applied to patient's lacerations to help achieve hemostasis. The wounds do not seem deep enough to require stitching at this point. Patient will go for her third session of radiation therapy today. Continue midodrine and all other meds including her Eliquis despite current bleeding. COVID-19 test negative. [facility] states they will only take patient back once radiation therapy has been completed on Monday. 03/30/2020 Staff from [facility] came to the facility today to evaluate the patient. They require a compressor for her current oxygen needs. I will try to decrease the oxygen requirements if possible. Anticipated transfer date is now April 01. 04/01/2020-no acute events in the last 24 hours. Afebrile. Patient is on 6 L of oxygen and has a trach. skilled nursing is willing to manage the trach at their facility. Patient is stable to go to the assisted today. - Additional Information Resuscitation Status: Do Not Intubate Discharge Diet: Tube Feeding (Comments) Discharge Activity: Activity As Tolerated Referrals: ALLIE PEARSON MD [Primary Care Provider] - Home Medications: Atorvastatin Calcium 80 mg GT QPM 10/25/14 Acetaminophen [Tylenol] 650 mg GT Q4HP PRN 01/21/20 Carbamazepine [Tegretol 200 mg Tablet] 200 mg GT BID 01/21/20 Melatonin [Melatonin 5 mg Tablet] 10.5 mg GT QHS 01/21/20 Multivitamin/Iron/Folic Acid [Centrum Complete Multivit Tab] 1 each GT DAILY 01/21/20 Aspirin [Aspirin 81 mg Chewable Tablet] 81 mg GT DAILY 03/17/20 Digoxin [Lanoxin 0.125 mg Tablet] 0.125 mg GT DAILY 03/17/20 Midodrine HCl [Proamatine 5 mg Tablet] 10 mg GT TID 03/17/20 Oxycodone HCl [Oxy-Ir 5 mg Tablet] 5 mg GT Q4HP PRN 03/17/20 Acetaminophen [Tylenol Soln 325 mg/10.15 ml Udcup] 650 mg PEG Q4HP PRN udc 03/27/20 Albuterol Sulfate [Ventolin 0.083% Neb 2.5 mg/3 mL Ampul] 2.5 mg NEB RTQ6HP PRN vial.neb 03/27/20 Amino AC/Protein Hydr/Whey Pro [Prosource Tf 11 gm Protein/45 ml Pkt] 45 ml GT BID liquid.pkt 03/27/20 Apixaban [Eliquis 5 mg Tablet] 5 mg PO Q12A tablet 03/27/20 Aspirin [Aspirin 81 mg Chewable Tablet] 81 mg PEG DAILY tab.chew 03/27/20 Atorvastatin Calcium [Lipitor 80 mg Tablet] 80 mg PEG QHS tablet 03/27/20 Benzocaine/Menthol [Chloraseptic Sore Throat Lozenge] 1 each BUCCAL Q4HP PRN lozenge 03/27/20 Buspirone HCl [Buspar 10 mg Tablet] 5 mg PEG Q8 tablet 03/27/20 Carbamazepine [Tegretol Susp 200 mg/10 ml Udcup] 200 mg PEG Q12 udc 03/27/20 Citalopram Hydrobromide [Celexa 20 mg Tablet] 10 mg PEG DAILY tablet 03/27/20 Digoxin [Lanoxin 0.125 mg Tablet] 0.125 mg PEG DAILY tablet 03/27/20 Docusate Sodium [Colace Udc 100 mg/10 ml Oral Soln] 100 mg PEG DAILY udc 06/12/20 Famotidine [Pepcid 20 mg Tablet] 20 mg PEG Q12 tablet 03/27/20 Mag Hydrox/Al Hydrox/Simeth [Maalox Plus Susp 30 Udcup] 15 ml PO Q6HP PRN udc 03/27/20 Melatonin [Melatonin 5 mg Tablet] 10 mg NG QHS tablet 03/27/20 Metoprolol Succinate [Toprol Xl 25 mg Tab.sr] 25 mg PO DAILY tab.sr.24h 03/27/20 Midodrine HCl [Proamatine 5 mg Tablet] 10 mg PEG TID tablet 03/27/20 Mupirocin Calcium [Bactroban 2% Cream 15 gm] 1 applic TP BID tube 03/27/20 Pantoprazole Sodium [Protonix [address] Packet] 40 mg NG Q6AM granpkt.dr 03/27/20 Potassium Chloride [Potassium Chloride 20 Meq Packet] 20 meq PEG DAILY packet 03/27/20 Pyridoxine HCl [Vitamin B-6 Tablet 50 mg] 100 mg PEG DAILY tablet 03/27/20 Fluticasone Propionate [Flonase Nasal [place] 50 Mcg/[place] 16 gm] 2 spray NASL Q12 spray.pump 04/01/20 Guaifenesin [Robitussin Syrup 200 mg/10 ml Ud Cup] 200 mg PO QID udc 04/01/20 Metoprolol Tartrate [Lopressor 25 mg Tablet] 12.5 mg PEG Q12 tablet 04/01/20 Sodium Chloride [[place] Nasal [place] 44 ml Bottle] 1 spray NASL ACHS bottle 04/01/20 History of Present Illiness History of Present Illness: CRISTINE WATERMAN is a 65 year old female 65 year old female who is been admitted as a back transfer from [facility]. Patient had initially presented to our emergency department on 03/10/2020 after being referred by her ENT provider for evaluation of stridor. CT of the neck revealed a mass in her right hypopharyngeal region. She was subsequently transf erred to [facility] for further evaluation by ENT. At [facility], patient was taken to the OR on 03/11/2020 and a tracheostomy, direct laryngoscopy with thomas endoscopy and biopsy was performed. 6 cfd Shiley trach was placed. Passy-Elizabeth valve was placed. PET CT was obtained which demonstrated known parapharyngeal mass as well as multiple pulmonary nodules. Intraoperative biopsy was remarkable for invasive squamous cell carcinoma. Oncology was consulted who recommended against pursuing lung nodule biopsy and recommended palliative radiation therapy +/- DOAC chemotherapy outpatient. Patient started on tube feeds via G-tube. Her warfarin was resumed on 03/14. She was also started on Midodrine for hypotension. Has been tolerating tube feeds and sent back to [place]. Patient currently denies any shortness of breath but states that she would like radiation therapy in order to improve her swallowing. Hospital Course Hospital Course: (1) Squamous cell carcinoma of pharynx Is this a current diagnosis for this admission?: Yes Plan: 03/24/2020 Completed palliative radiation then transferred to group home facility 03/25/2020 Patient should be having last radiation treatment tomorrow. Consider transfer to group home tomorrow or Monday depending on what time she finishes her radiation therapy. 03/26/2020 Last radiation treatment was yesterday. Unfortunately there has been a delay with her transfer to [facility]. They now were questioning the tracheostomy. This was reviewed by their nursing staff and the patient will be able to transfer as soon as their tracheostomy supply order arrives at the facility. Hopefully it will be tomorrow and if not Monday. 04/01/20-patient has squamous cell carcinoma of the pharynx status post tracheostomy done at [place]. Patient is stable to go to the [facility] for further management. (2) Face lacerations Qualifiers: Encounter type: initial encounter Qualified Code(s): S01.81XA - Laceration without foreign body of other part of head, initial encounter Is this a current diagnosis for this admission?: Yes Plan: 03/24/2020 Topical antibiotic ointment twice daily 03/25/2020 The patient is picking at her skin. I did order topical Bactroban. Psychiatry saw her. There are multiple potential etiologies for this behavior. It might be secondary to medication however a more likely scenario is that it is secondary to the devastating cancer diagnosis. We will continue to monitor. 03/26/2020 Continue topical antibiotic cream. I did look up the Celexa and this is not necessarily a known adverse effect. Please also see psychiatry note. 04/01/2020-psych consult was during the hospital stay and patient is receiving Celexa per the psych recommendations. (3) Status post trachelectomy Is this a current diagnosis for this admission?: Yes Plan: 03/24/2020 Supportive tracheostomy care 03/25/2020 Nursing reports that the tracheostomy stays pretty clean and there is limited tracheostomy care involved. 03/26/2020 Continues to perform her own tracheostomy care 03/27/2020 The patient corrected in the. This is unable to walk her on tracheostomy care per vision loss. She reports that there is not a lot of intervention needed by nursing. It appears that the tracheostomy stoma is well formed 04/01/2020-patient still heavily trach collar receiving 6 L of oxygen pulse ox in the upper 90s. Evaluation done by the medical team from [facility] on they are willing to take the patient there and they think able to manage trach i ssues. (4) Hypotension Qualifiers: Hypotension type: unspecified hypotension type Qualified Code(s): I95.9 - Hypotension, unspecified Is this a current diagnosis for this admission?: Yes Plan: 03/24/2020 Continue midodrine 03/25/2020 This is a chronic condition and she has to have the antiarrhythmic medications for her fibrillation. The midodrine helps maintain good pressure while on these medications. No change in the treatment plan. 03/26/2020 Continue midodrine 04/01/2020-blood pressure today is 137/60. Stable. Plan is to continue midodrine. (5) Longstanding persistent atrial fibrillation Is this a current diagnosis for this admission?: Yes Plan: 03/24/2020 Continue current medication regimen of digoxin and metoprolol as well as apixaban 03/25/2020 Good rate control 03/26/2020 Continue current regimen 04/01/2020-patient has history of for longstanding persistent atrial fibrillation heart rate in the 90s today. Rate controlled rhythm. Patient is on metoprolol, digoxin and aphixaban (6) Adjustment disorder with mixed anxiety and depressed mood Is this a current diagnosis for this admission?: Yes Plan: 03/24/2020 BuSpar, Tegretol citalopram 03/25/2020 As noted above psychiatry saw the patient. I will see if any of the medications can cause the picking behavior. As noted above it is more likely a response to the overwhelming devastating diagnosis of metastatic cancer. 03/26/2020 Continue current regimen. Adverse effects listed for citalopram do not indicate that it would be stimulating in her picking habit (7) Chronic systolic CHF (congestive heart failure) Is this a current diagnosis for this admission?: Yes Plan: 03/24/2020 Currently stable. Continue current medication regimen 03/25/2020 No change in her regimen 03/26/2020 Chronic and stable 04/01/20-patient has history of chronic systolic hypertension blood pressures are stable patient is euvolemic at the time of my examination. (8) Neck pain on right side Is this a current diagnosis for this admission?: Yes Plan: 03/24/2020 Painful area on right side is consistent with her malignancy. Supportive care and pain medication. 03/25/2020 The pain is less today. Analgesia is available. 03/26/2020 Secondary to malignancy Physical Exam Vital Signs: Temp Pulse Resp BP Pulse Ox 97.4 F 69 18 125/59 L 98 04/01/20 07:28 04/01/20 07:28 04/01/20 07:28 04/01/20 07:28 04/01/20 07:28 Intake & Output 03/31/20 04/01/20 04/02/20 06:59 06:59 06:59 Intake Total 1520 680 Balance 1520 680 Weight 50.4 kg 51.9 kg General appearance: PRESENT: no acute distress, cooperative, thin Head exam: PRESENT: atraumatic Eye exam: PRESENT: PERRLA Ear exam: PRESENT: normal external ear exam Mouth exam: PRESENT: other - Trach collar in place. Teeth exam: PRESENT: poor dentation Neck exam: ABSENT: carotid bruit, JVD, lymphadenopathy, thyromegaly Respiratory exam: PRESENT: decreased breath sounds Cardiovascular exam: PRESENT: RRR. ABSENT: diastolic murmur, rubs, systolic murmur GI/Abdominal exam: PRESENT: normal bowel sounds, soft. ABSENT: distended, guarding, mass, organolmegaly, rebound, tenderness Rectal exam: PRESENT: deferred Extremities exam: PRESENT: full ROM. ABSENT: calf tenderness, clubbing, pedal edema Neurological exam: PRESENT: alert, awake, oriented to person, oriented to place, oriented to time, oriented to situation, CN II-XII grossly intact. ABSENT: motor sensory deficit Skin exam: PRESENT: dry, intact, warm. ABSENT: cyanosis, rash Results Laboratory Results: WBC 5.2 10^3/uL (4.0-10.5) 04/01/20 04:43 RBC 3.04 10^6/uL (3.72-5.28) L 04/01/20 04:43 Hgb 10.1 g/dL (12.0-15.5) L 04/01/20 04:43 Hct 29.4 % (36.0-47.0) L 04/01/20 04:43 MCV 97 fl (80-97) 04/01/20 04:43 MCH 33.4 pg (27.0-33.4) 04/01/20 04:43 MCHC 34.5 g/dL (32.0-36.0) 04/01/20 04:43 RDW 14.5 % (11.5-14.0) H 04/01/20 04:43 Plt Count 338 10^3/uL (150-450) 04/01/20 04:43 Lymph % (Auto) Not Reportable 04/01/20 04:43 [place] % (Auto) Not Reportable 04/01/20 04:43 Eos % (Auto) Not Reportable 04/01/20 04:43 Baso % (Auto) Not Reportable 04/01/20 04:43 Absolute Neuts (auto) Not Reportable 04/01/20 04:43 Absolute Lymphs (auto) Not Reportable 04/01/20 04:43 Absolute Monos (auto) Not Reportable 04/01/20 04:43 Absolute Eos (auto) Not Reportable 04/01/20 04:43 Absolute Basos (auto) Not Reportable 04/01/20 04:43 Total Counted 100 04/01/20 04:43 Seg Neutrophils % Not Reportable 04/01/20 04:43 Seg Neuts % (Manual) 83 % (42-78) H 04/01/20 04:43 Lymphocytes % (Manual) 5 % (13-45) L 04/01/20 04:43 Atypical Lymphs % 1 % (0) 04/01/20 04:43 Monocytes % (Manual) 11 % (3-13) 04/01/20 04:43 Eosinophils % (Manual) 0 % (0-6) 04/01/20 04:43 Basophils % (Manual) 0 % (0-2) 04/01/20 04:43 Abs Neuts (Manual) 4.3 10^3/uL (1.7-8.2) 04/01/20 04:43 Abs Lymphs (Manual) 0.3 10^3/uL (0.5-4.7) L 04/01/20 04:43 Abs Monocytes (Manual) 0.6 10^3/uL (0.1-1.4) 04/01/20 04:43 Absolute Eos (Manual) 0.0 10^3/uL (0.0-0.6) 04/01/20 04:43 Abs Basophils (Manual) 0.0 10^3/uL (0.0-0.2) 04/01/20 04:43 Toxic Granulation SLIGHT 04/01/20 04:43 Large Platelets PRESENT 04/01/20 04:43 Platelet Comment ADEQUATE 04/01/20 04:43 Anisocytosis SLIGHT 04/01/20 04:43 PT 14.8 SEC (11.4-15.4) 03/18/20 05:11 INR 1.16 03/18/20 05:11 Sodium 129.1 mmol/L (137-145) L 04/01/20 04:43 Potassium 4.3 mmol/L (3.6-5.0) 04/01/20 04:43 Chloride 95 mmol/L (98-107) L 04/01/20 04:43 Carbon Dioxide 24 mmol/L (22-30) 04/01/20 04:43 Anion Gap 10 (5-19) 04/01/20 04:43 BUN 16 mg/dL (7-20) 04/01/20 04:43 Creatinine 0.27 mg/dL (0.52-1.25) L 04/01/20 04:43 Est GFR ( Amer) > 60 (>60) 04/01/20 04:43 Est GFR (MDRD) Non-Af > 60 (>60) 04/01/20 04:43 Glucose 122 mg/dL (75-110) H 04/01/20 04:43 POC Glucose 124 mg/dL (70-110) H 04/01/20 05:30 Calcium 9.2 mg/dL (8.4-10.2) 04/01/20 04:43 Magnesium 2.0 mg/dL (1.6-2.3) 04/01/20 04:43 Total Bilirubin 0.4 mg/dL (0.2-1.3) 04/01/20 04:43 Direct Bilirubin 0.1 mg/dL (0.0-0.4) 04/01/20 04:43 Neonat Total Bilirubin Not Reportable 04/01/20 04:43 Neonat Direct Bilirubin Not Reportable 04/01/20 04:43 Neonat Indirect Bili Not Reportable 04/01/20 04:43 AST 42 U/L (14-36) H 04/01/20 04:43 ALT 32 U/L (<35) 04/01/20 04:43 Alkaline Phosphatase 158 U/L (38-126) H 04/01/20 04:43 Total Protein 6.8 g/dL (6.3-8.2) 04/01/20 04:43 Albumin 3.4 g/dL (3.5-5.0) L 04/01/20 04:43 COVID-19 Source NASOPHARYNGEAL 03/19/20 14:40 COVID-19 (SARAH) NOT DETECTED 03/19/20 14:40 Plan Health Concerns: Squamous cell carcinoma of the pharynx. Currently with tracheostomy and PEG tube. Palliative radiation completed on Monday. Prognosis poor. Plan of Treatment: Transfer to group home facility. Continue tube feedings and medications. Continue tracheostomy care. Encourage physical and occupational therapy. Monitor nutritional status Goals: Patient may eventually require hospice level care. It depends on her response to the palliative radiation and tube feeds. Stroke Is this a Stroke Patient?: No Acute Heart Failure - Is this a Heart Failure Patient?: No
[2020-04-01 11:47] VITALS: BP 121/56
== END 2020-04-01 15:07 | DRG 147 ==
LOC: 3N 18:07 → 3W 03-28 18:46
PROVIDERS: ADMIT Internal Medicine; ATTEND Internal Medicine
PROC: 5A1955Z Respiratory Ventilation, Greater than 96 Consecutive Hours (ICD-10-PCS; principal; 2020-03-17)
DX: C14.0 Malignant neoplasm of pharynx, unspecified (principal); C78.02 Secondary malignant neoplasm of left lung; C78.01 Secondary malignant neoplasm of right lung; I48.11 Longstanding persistent atrial fibrillation; I50.22 Chronic systolic (congestive) heart failure; R06.1 Stridor; I95.9 Hypotension, unspecified; S00.81XA Abrasion of other part of head, initial encounter; F43.23 Adjustment disorder with mixed anxiety and depressed mood; H54.7 Unspecified visual loss; Z93.0 Tracheostomy status; Z89.512 Acquired absence of left leg below knee; Z79.01 Long term (current) use of anticoagulants; Z79.899 Other long term (current) drug therapy; Z03.818 Encounter for observation for suspected exposure to other biological agents ruled out; Z93.1 Gastrostomy status
CPT/HCPCS: 36415; 80053; 82962; 83735; 85025; 85027; 85610; 87635; B4155; C9803; J2405; J3490; J7030; J7040

== ENCOUNTER 2020-04-07 09:13 | Emergency (ER) | payer MEDICARE, MEDICAID ==
[2020-04-07 09:37] VITALS: BP 147/59
[2020-04-07] MEDS ORDERED: KETOROLAC TROMETHAMINE 60 MG/2 ML SDV IM ONE (11:43)
--- NOTE | 2020-04-07 11:49 | ER Document Report ---
ED General - General Chief Complaint: Problem with Feeding Tube Stated Complaint: CLOGGED G-TUBE Time Seen by Provider: 04/07/20 10:27 Primary Care Provider: ALLIE PEARSON MD [Primary Care Provider] - Follow up as needed Mode of Arrival: Medic Information source: Patient, Emergency Med Personnel TRAVEL OUTSIDE OF THE [place] IN LAST 30 DAYS: No - HPI Notes: Patient is brought from [facility] with a complaint of a clogged G- tube. The facility states they are unable to get the G-tube to work this morning. Patient has no other complaints other than she has some generalized pain. No new vomiting. No new fevers. Symptoms had a gradual onset. They have been constant. Nothing is made them better or worse. Obviously no radiation of the symptoms. They have been mild. - Related Data Allergies/Adverse Reactions: No Known Allergies Allergy (Verified 04/07/20 09:57) Past Medical History - General Information source: Patient - Social History Smoking Status: Former Smoker Frequency of alcohol use: None Drug Abuse: None Family History: Reviewed & Not Pertinent - Past Medical History Cardiac Medical History: Reports: Hx Atrial Fibrillation, Hx Coronary Artery Disease, Hx Hypercholesterolemia, Hx Hypertension, Hx Peripheral Vascular Disease Neurological Medical History: Reports: Hx Cerebrovascular Accident, Hx Seizures Psychiatric Medical History: Reports: Hx Depression Past Surgical History: Reports: Hx Hysterectomy, Hx Orthopedic Surgery - Left second toe metatarsal amputation for ischemic gangrenous toe. Left BKA, Hx Pacemaker, Hx Vascular Surgery - Left femoropopliteal bypass with tibial angioplasty, Other - AICD December 2019 - Immunizations Immunizations up to date: Yes Hx Diphtheria, Pertussis, Tetanus Vaccination: Yes - unknown Review of Systems - Review of Systems Constitutional: denies: Chills, Fever Cardiovascular: denies: Chest pain, Palpitations Respiratory: denies: Cough, Short of breath -: Yes All other systems reviewed and negative Physical Exam - Vital signs Vitals: Temp Pulse Resp BP Pulse Ox 98.0 F 69 20 147/59 H 100 04/07/20 09:19 04/07/20 09:19 04/07/20 09:19 04/07/20 09:19 04/07/20 09:19 - General General appearance: Appears well, Alert In distress: None - HEENT Head: Normocephalic, Atraumatic Eyes: Normal Pupils: PERRL - Respiratory Respiratory status: No respiratory distress Chest status: Nontender Breath sounds: Rhonchi Chest palpation: Normal - Cardiovascular Rhythm: Regular Heart sounds: Normal auscultation Murmur: No - Abdominal Inspection: Other - g tube in place, site unremarkable Distension: No distension Bowel sounds: Normal Tenderness: Tender - minimal diffuse Organomegaly: No organomegaly - Psychological Associated symptoms: Anxious, Flat affect - Skin Skin Temperature: Warm Skin Moisture: Dry Skin Color: Normal Course - Re-evaluation Re-evalutation: 04/07/20 11:53 g tube unclogged in ED by endoscopy team. - Vital Signs Vital signs: Temp Pulse Resp BP Pulse Ox 98 F 69 20 147/59 H 100 04/07/20 09:25 04/07/20 09:25 04/07/20 09:25 04/07/20 09:25 04/07/20 09:25 Discharge - Discharge Clinical Impression: Gastrostomy tube dysfunction Condition: Stable Disposition: HOME, SELF-CARE Instructions: Transdermal Gastric Tube Placement ([facility]) Referrals: ALLIE PEARSON MD [Primary Care Provider] - Follow up as needed
[2020-04-07] MEDS ORDERED: OXYCODONE HCL IR 5 MG TABLET GT ONE (11:56)
== END 2020-04-07 12:40 | disposition home or self-care (01) ==
LOC: ER 09:13
DX: K94.23 Gastrostomy malfunction (principal); I48.91 Unspecified atrial fibrillation; I25.10 Atherosclerotic heart disease of native coronary artery without angina pectoris; E78.00 Pure hypercholesterolemia, unspecified; I10 Essential (primary) hypertension; Z86.73 Personal history of transient ischemic attack (TIA), and cerebral infarction without residual deficits; Z90.710 Acquired absence of both cervix and uterus; Z89.512 Acquired absence of left leg below knee; Z95.810 Presence of automatic (implantable) cardiac defibrillator; Z95.1 Presence of aortocoronary bypass graft
CPT/HCPCS: 99284; 96372; J1885; A9270